=== PATIENT | male | born 1950 | race Caucasian/White ===

== ENCOUNTER 2018-12-27 06:03 | Inpatient (IN) ==
--- NOTE | 2018-11-25 15:48 | PAT Medication Instructions ---
Medication Instructions Date of Service November 25, 2018 Home Medications cholecalciferol (vitamin D3) [Vitamin D3] 1,000 unit PO QAM losartan 100 mg PO QAM multivitamin 1 tab PO QAM DO NOT take the morning of surgery cholecalciferol (vitamin D3) [Vitamin D3] 1,000 unit PO QAM losartan 100 mg PO QAM multivitamin 1 tab PO QAM Other Notes If you have any questions please call us at [phone] or [phone] or [phone] or [phone]
--- NOTE | 2018-11-26 09:58 | Anesthesiology Consultation ---
Date of Service November 26, 2018 Assessment & Plan (1) Encounter for pre-operative examination: Chart Review Chart Review: Acceptable Risk for Surgery and Patient seen in Pre Admission Testing Teaching & Discussion Pre-Anesthesia Teaching/Discussion Notes: Instructed NPO after midnight before surgery,except medications with 15 cc of water. Medication instructions provided according to the PAT guidelines. History Surgery Operation Date: 12/27/18 10:00 Proposed Procedures p Left Anterior Total Hip Arthroplasty - Jose Akins DO Height/Weight Height: 6 ft Weight: 126.7 kg Allergies Allergy/AdvReac Type Severity Reaction Status Date / Time clavulanic acid Allergy Unknown itching Verified 11/26/18 10:17 Medications Home Medications Medication Instructions Recorded Confirmed Last Taken cholecalciferol (vitamin D3) 1,000 unit PO QAM 01/25/18 11/19/18 04/16/18 [Vitamin D3] losartan 100 mg PO QAM 01/25/18 11/19/18 11/19/18 multivitamin 1 tab PO QAM 01/25/18 11/19/18 04/16/18 Past Medical History Medical History Hypertension Obesity (BMI 35.0-39.9 without comorbidity) Osteoarthritis TMJ (temporomandibular joint syndrome) hx locking x 2 (has not locked in "years") Exercise / Class Metabolic Activity II 4-5 Yardwork/Stairs/Walk up hill Past Family History Family History Mother Family history of diabetes mellitus Past Surgical History Surgical History History of carpal tunnel release B/L History of colonoscopy History of left cataract extraction History of right cataract extraction History of tooth extraction History of total knee replacement B/L Past Anesthesia History No Hx of Anesthesia Complications and No Family Hx of Anesthesia Complications History of PONV No Hx of PONV and No Hx of Motion Sickness Social History Smoking Status: Never smoker Do You Dip or Chew Tobacco: No Hx Alcohol Use: Yes alcohol intake frequency: holidays/special occasions only Hx Substance Use: No substance use type: does not use Review of Systems Patient denies chest pain, shortness of breath, dyspnea on exertion, reflux, cough, wheezing, palpitations. Physical Exam Vital Signs VITALS BP 155/95 (repeat: 128/81) P 62 TEMP 98.2 SP02 95%RA RESP 18 PHYSICAL Full neck and c-spine range of motion. Full TMJ range of motion. TMD 3 finger breaths Mallampati Score 2 Dentition: intact, caps/crowns several "all over" Lungs: clear throughout to auscultation Cardiac: regular rate and rhythm, no murmurs noted Spine: normal Carotid arteries: negative bruit Extremities: no edema Trimmed luis Testing Laboratory Results 11/26/18 10:26 PT 10.5 Seconds (9.0-12.0) 11/26/18 10:26 INR 1.0 (0.9-1.1) 11/26/18 10: APTT 23.7 Seconds (21.0-31.0) 11/26/18 10:26 Blood Type A Positive 11/26/18 10:26 Antibody Screen NEGATIVE 11/26/18 10:26 11/22/18 SODIUM 141 POTASSIUM 4.4 CHLORIDE 106 CO2 24 BUN 31 CREATININE 0.9 GLUCOSE 101 Electrocardiogram Date: 01/29/18 NSR at 77bpm. NS TWA. Chest X-Ray Date: 01/29/18 Findings: + NAD
[2018-11-26 10:48] LABS: Basophils # (auto) 0.01 K/uL (0-0.2); Basophils % (auto) 0.2 %; Eosinophils # (auto) 0.14 K/uL (0-0.5); Eosinophils % (auto) 2.6 %; Hematocrit (blood only) 44.2 % (42-52); Hemoglobin 14.8 g/dL (14.0-18.0); Immature Granulocytes # (auto) 0.02 K/uL (0.00-0.02); Immature Granulocytes % (auto) 0.4 %; Lymphocytes # (auto) 2.21 K/uL (1.2-3.4); Lymphocytes % (auto) 41.3 %; Mean Corpuscular Hgb Conc 33.5 g/dL (32-36); Mean Corpuscular Volume 88.8 fL (80-100); Mean Platelet Volume 9.6 fL (7.4-10.4); Monocytes # (auto) 0.44 K/uL (0.11-0.59); Monocytes % (auto) 8.2 %; Neutrophils # (auto) 2.53 K/uL (1.4-6.5); Neutrophils % (auto) 47.3 %; Platelet Count 203 K/uL (130-400); RDW Coefficient of Variation 12.9 % (11.5-14.5); RDW Standard Deviation 41.6 fL (36.4-46.3); Red Blood Count 4.98 M/uL (4.7-6.1); White Blood Count 5.35 K/uL (4.8-10.8)
[2018-11-26 11:03] LABS: Partial Thromboplastin Ratio 0.9; Partial Thromboplastin Time 23.7 Seconds (21.0-31.0); Prothrombin Time 10.5 Seconds (9.0-12.0)
--- NOTE | 2018-12-26 14:19 | History & Physical Report ---
Date of Service December 26, 2018 Assessment & Plan (1) Osteoarthritis of left hip: We will proceed with a left anterior total hip arthroplasty. Postoperatively he will be placed on aspirin for DVT prophylaxis. He will be kept overnight in the hospital for postoperative medical management. He plans to use [facility] upon discharge. Present on Admission?: Yes History of Present Illness Chief Complaint: Primary osteoarthritis of the left hip Primary Care Provider: Gaurav Cheek MD Emeka is a pleasant 68-year-old male who is been dealing with chronic increasing left hip and groin pain. MRI and clinical examination have been diagnostic for primary osteoarthritis of the left hip. After failing conservative treatment, he has elected to proceed with a left anterior total hip arthroplasty. Allergies Allergy/AdvReac Type Severity Reaction Status Date / Time clavulanic acid Allergy Unknown itching Verified 11/26/18 10:17 Home Medications Home Medications Medication Instructions Recorded Confirmed Type cholecalciferol (vitamin D3) 1,000 unit PO QAM 01/25/18 11/19/18 History [Vitamin D3] losartan 100 mg PO QAM 01/25/18 11/19/18 History multivitamin 1 tab PO QAM 01/25/18 11/19/18 History Past Med/Surg History Medical History Hypertension Obesity (BMI 35.0-39.9 without comorbidity) Osteoarthritis TMJ (temporomandibular joint syndrome) hx locking x 2 (has not locked in "years") Surgical History History of carpal tunnel release B/L History of colonoscopy History of left cataract extraction History of right cataract extraction History of tooth extraction History of total knee replacement B/L Family History Mother Family history of diabetes mellitus Social History Preferred Language: Cambodian Communication Ability: Effective Visual Impairment: No Limitations Automation Controls Expert Required: No Beliefs That Will Affect Care: None marital status: Current Living Situation: Spouse Current Living Situation Comment: NA Other Information That Helps Us Care for You: No Feels Safe at Home: Yes Smoking Status: Never smoker Do You Dip or Chew Tobacco: No ; Second Hand Exposure: No ; Hx Alcohol Use: Yes Hx Substance Use: No Review of Systems All systems reviewed & are unremarkable except as noted in HPI & below Physical Exam Constitutional: WD/WN, vitals as above Eyes: PERRL, conjunctivae normal, anicteric sclerae ENMT: external ear and nose normal, oropharynx normal Neck: trachea midline, no thyromegaly Respiratory: normal respiratory effort Cardiovascular: RRR, no murmur, no edema Gastrointestinal (Abdomen): normal bowel sounds, soft, nontender, no hepatosplenomegaly Musculoskeletal: Physical examination of the left hip reveals decreased range of motion with flexion, internal and external rotation. There is significant groin pain with forced internal rotation of the hip his leg lengths are essentially equal. Psychiatric: A+Ox3, euthymic affect Results & Data Diagnostic Findings Radiographs of the left hip and pelvis demonstrate advanced osteoarthritis with joint space narrowing osteophyte formation and [id number] articulation.
[~2018-12-27 06:03] MED LIST: ACETAMINOPHEN 500 MG TAB PO SCH; CEFAZOLIN 3000MG 72.5 ML IV SCH; FAMOTIDINE 20 MG TAB PO SCH; GABAPENTIN 300 MG CAP PO SCH; LR 500ML BOLUS, THEN 15ML/HR IV SCH; LR 60ML/HR IV SCH; ROPIVACAINE 0.5% HCL/PF 150 MG, BUPIVACAINE 0.5% MPF 30 ML, EPINEPHrine 30MG/30ML (OR U... INSTIL SCH; TRANEXAMIC ACID 1,000 MG **IV Pre-op IV SCH
[2018-12-27] MEDS ORDERED: TRANEXAMIC ACID 1,000 MG **IV Intra-op IV SCH (06:30)
[2018-12-27] MEDS ORDERED: BUPIVACAINE 0.5 % 5 MG/1 ML PF 10ML VIAL ONE (06:40)
--- NOTE | 2018-12-27 06:56 | History & Physical Bridge Note ---
Date of Service December 27, 2018 History & Physical Bridge Note I have examined the patient, reviewed the History & Physical and in the interval since the performance of the History & Physical I have noted the following changes of clinical significance: no changes noted
[2018-12-27] MEDS ORDERED: PROPOFOL IV EMULSION 10 MG/ML 20 ML VIAL IV ONE ×2 (07:06→09:51)
[2018-12-27] MEDS ORDERED: MIDAZOLAM HCL 1 MG/ML 2ML VIAL ONE ×2 (07:06→07:07)
[2018-12-27] MEDS ORDERED: LIDOCAINE HCL 2% 2 ML VIAL/AMP(20MG/ML) INFIL ONE (07:06)
[2018-12-27] MEDS ORDERED: fentaNYL citrate 100 MCG/2 ML VIAL ONE (07:07)
[2018-12-27] MEDS ORDERED: ORTHO JOINT ANESTHETIC ONE (07:14)
[2018-12-27] MEDS ORDERED: fentaNYL citrate 100 MCG/2 ML VIAL IV PRN (07:21)
[2018-12-27] MEDS ORDERED: ATROPINE SULFATE 0.1 MG/ML 10ML SYR IV PRN (07:21)
[2018-12-27] MEDS ORDERED: ePHEDrine sulfate 50 MG/ML AMP IV PRN (07:21)
[2018-12-27] MEDS ORDERED: ONDANSETRON INJ 2 MG/ML 2 ML VIAL IV PRN ×2 (07:21→12:04)
--- NOTE | 2018-12-27 10:10 | Operative Report ---
Post Operative Report Pre & Post Diagnosis Operation Date: 12/27/18 08:30 Pre-Op Diagnosis: Left Hip Degenerative Joint Disease Post-Op Diagnosis: Left Hip Degenerative Joint Disease Procedure Operation Date: 12/27/18 08:30 Actual Procedures p Left Anterior Total Hip Arthroplasty(Left) - Jose Akins DO Surgeon Jose Akins DO Nuclear Chemistry Technician Jose Presley PAC Estimated Blood Loss 250 Findings Consistent with Post-Op Diagnosis Specimens Left femoral head Complications none Disposition Disposition: Recovery Room Indications Emeka is a pleasant 68-year-old male who presented my office with complaints of chronic increasing left hip and groin pain. X-rays and clinical examination were diagnostic for primary osteoarthritis of the left hip. After failing conservative treatment, he elected to proceed with a left total hip arthroplasty. Description of Procedure Implants used Biomet Taperloc total hip arthroplasty system with a size 16 standard offset Taperloc stem, a 58 mm G7 cup with a 25mm screw, an E1 polyethylene liner, a 40 mm ceramic head with a +3 neck. Patient arrived at the hospital for the above procedure. They were seen in the preoperative holding area and the operative extremity was identified and signed. They were given a spinal anesthetic. They were given a preoperative antibiotic and TXA. They were taken back To the operating room and laid on the table in the supine position. The leg was brought out through a Puristst leg positioner. The hip was then prepped and draped in sterile fashion. A timeout was done and the patient in upper extremities properly identified. An anterior approach was used. Dissection was taken down through the fascia and the tensor muscle belly was retracted laterally and the rectus was retracted medially. The circumflex vessels were identified and ligated. The capsule was then incised and tagged for later repair. The femoral neck was then cut and the femoral head was removed. The acetabulum was exposed. Time was spent doing a complete circumferential labral release. Sequential reaming of the acetabulum up to a size 57 reamer was done. Final reamings were done under fluoroscopy to ensure appropriate version. A Biomet 58 mm G7 cup was then impacted into place. A single 25 mm screw was placed. The E1 polyethylene liner was then snapped into place. Surrounding soft tissues were then injected with 100 cc of an orthopedic pain control cocktail. The proximal femur was then exposed. Sequential broaching up to a size 16 broach was done. Off that broach a size 40 head with a +3 neck was trialed. The hip was reduced and fluoroscopic images showed anatomic alignment of the implants in acceptable length. The broach was removed. The final size 16 standard offset Taperloc stem was then impacted into place. A ceramic 40 mm head with a +3 neck was then impacted into place in the hip was reduced. Final fluoroscopic images showed anatomic reduction of the hip. The capsule was then closed with #1 Vicryl suture. A dilute betadyne lavage was then done for 3 minutes. The joint was then irrigated with normal saline solution. The fascia was closed with #1 PDS suture. Skin was closed with 2-0 Vicryl, yuko, and a [place] VAC dressing. The patient was then transferred to a hospital bed and taken to the post anesthesia care unit in stable condition. They tolerated the procedure well. I attest to the content of the Intraoperative Record and any orders documented therein. Any exceptions are noted below.
--- NOTE | 2018-12-27 10:45 | Fluoroscopy Report ---
FL hip LT 1V CLINICAL HISTORY: LEFT ANTERIOR HIP COMPARISON STUDY: None FLUOROSCOPY TIME: 35 seconds NUMBER OF FLUOROSCOPIC IMAGES: 3 FINDINGS: Image intensifier support for a total left hip arthroplasty IMPRESSION: Image intensifier support for a total left hip arthroplasty The above report was generated using voice recognition software. It may contain grammatical, syntax or spelling errors. Electronically signed by: Kd Mccarthy M.D. 12/27/2018 10:43 AM
--- NOTE | 2018-12-27 11:08 | XRay Report ---
XR hip 1V LT w pelvis CLINICAL HISTORY: Degenerative arthritis. Postoperative study. COMPARISON: 09/23/2018 DISCUSSION: There are postsurgical changes of a total left hip arthroplasty. The acetabular femoral c omponents appear well seated. There is no dislocation. There are overlying skin yuko present. Ther e is air within the soft tissues consistent with recent surgery. IMPRESSION: Postsurgical changes of a total left hip arthroplasty. Electronically signed by: Alexandr Belle M.D. 12/27/2018 11:06 AM
[2018-12-27] MEDS ORDERED: MAGNESIUM HYDROXIDE SUSP 30 ML UDC PO PRN (12:04)
[2018-12-27] MEDS ORDERED: HYDROmorphone INJ 0.5 MG/0.5 ML SYR IV PRN (12:04)
[2018-12-27] MEDS ORDERED: NALOXONE HCL 0.4 MG/1 ML VIAL/CARP IV PRN (12:04)
[2018-12-27] MEDS ORDERED: METOCLOPRAMIDE HCL INJ 5 MG/ML 2 ML VIAL IV PRN (12:04)
[2018-12-27] MEDS ORDERED: BISACODYL 10 MG SUPP PR PRN (12:04)
[2018-12-27] MEDS: SODIUM CHLORIDE 0.9% 1000ML 1,000 ML IV SCH ×2 (13:03→21:49)
[2018-12-27] MEDS: KETOROLAC TROMETHAMINE 15 MG/ML VIAL IV SCH ×3 (13:03→23:38)
[2018-12-27] MEDS: ACETAMINOPHEN 500 MG TAB PO SCH ×2 (13:04→20:34)
--- NOTE | 2018-12-27 14:19 | Anesthesiology Progress Note ---
Date of Service December 27, 2018 Anesthesia Post Procedure Vital Signs Vital Signs: Temp Pulse Pulse Resp BP Pulse Ox 12/27/18 13:40 74 18 136/79 97 12/27/18 12:44 73 18 129/78 95 12/27/18 12:11 67 18 123/80 95 12/27/18 11:40 36.3 C L 68 15 119/76 96 12/27/18 11:30 37.0 C 64 16 111/71 97 12/27/18 11:20 37.0 C 70 16 101/78 94 12/27/18 11:10 71 24 119/81 98 12/27/18 11:00 73 16 122/88 93 12/27/18 10:50 73 17 126/84 93 12/27/18 10:43 36.0 C L 86 16 112/78 94 12/27/18 06:35 36.9 C 80 18 164/98 H 95 Transfer of Care Handoff Completed per policy Notes Mental Status: alert / awake / arousable and participated in evaluation Patient Amnestic to Procedure: Yes Nausea / Vomiting: adequately controlled Pain: adequately controlled Airway Patency, RR, SpO2: stable & adequate BP & HR: stable & adequate Hydration State: stable & adequate Neuraxial Anesthesia: was administered and sensory block is resolving Anesthetic Complications: no major complications apparent and Pt Satisfied with anesthetic care
[2018-12-27] MEDS: CEFAZOLIN 2000MG 2,000 MG/15 ML SYR IV SCH ×2 (16:10→23:38)
[2018-12-27] MEDS: DOCUSATE SODIUM 100 MG CAP PO SCH (20:34)
[2018-12-27] MEDS: ASPIRIN 81 MG ECTAB PO SCH (20:34)
[2018-12-27] MEDS ORDERED: SENNA 8.6 MG TAB PO SCH (21:00)
[2018-12-27] MEDS: OXYCODONE HCL IR 5 MG TAB (IMMEDIATE RELEASE) PO PRN (21:45)
[2018-12-28] MEDS: KETOROLAC TROMETHAMINE 15 MG/ML VIAL IV SCH ×2 (05:06→12:09)
[2018-12-28] MEDS: ACETAMINOPHEN 500 MG TAB PO SCH (05:06)
[2018-12-28 06:39] LABS: Basophils # (auto) 0.01 K/uL (0-0.2); Basophils % (auto) 0.1 %; Eosinophils # (auto) 0.09 K/uL (0-0.5); Eosinophils % (auto) 0.8 %; Hematocrit (blood only) 39.3 % (42-52); Hemoglobin 13.1 g/dL (14.0-18.0); Immature Granulocytes # (auto) 0.03 K/uL (0.00-0.02); Immature Granulocytes % (auto) 0.3 %; Lymphocytes # (auto) 2.06 K/uL (1.2-3.4); Lymphocytes % (auto) 17.7 %; Mean Corpuscular Hgb Conc 33.3 g/dL (32-36); Mean Corpuscular Volume 88.9 fL (80-100); Monocytes # (auto) 1.16 K/uL (0.11-0.59); Neutrophils # (auto) 8.27 K/uL (1.4-6.5); Neutrophils % (auto) 71.1 %; Platelet Count 191 K/uL (130-400); RDW Coefficient of Variation 12.8 % (11.5-14.5); RDW Standard Deviation 41.6 fL (36.4-46.3); Red Blood Count 4.42 M/uL (4.7-6.1); White Blood Count 11.62 K/uL (4.8-10.8)
[2018-12-28 07:14] LABS: BUN Creatinine Ratio 26.6 (10-20); Calcium 8.3 mg/dl (8.5-10.1); Creatinine Clr Calc Pharmacy 112.1 ml/min; Est GFR (African American) 103.7; Est GFR (Non-African American) 89.5
[2018-12-28] MEDS: ASPIRIN 81 MG ECTAB PO SCH (08:54)
[2018-12-28] MEDS: DOCUSATE SODIUM 100 MG CAP PO SCH (08:55)
[2018-12-28] MEDS ORDERED: MULTIVITAMIN TAB PO SCH (09:00)
[2018-12-28] MEDS ORDERED: LOSARTAN POTASSIUM 50 MG TAB PO SCH (09:00)
--- NOTE | 2018-12-28 09:22 | Orthopedic Progress Note ---
Date of Service December 28, 2018 Assessment & Plan (1) Osteoarthritis of left hip: Overall is doing very well. Is not having much pain in the left hip. He will be seen by physical therapy this morning for ambulation and range of motion exercises. He can be discharged home later today. He is on aspirin for DVT prophylaxis. He will use [facility] at home. He will follow-up with orthopedics in 2 weeks. Present on Admission?: Yes Subjective Emeka was seen and examined at bedside this morning. Overall he is doing very well. Is not having much pain in the hip. He is already been ambulating around the nurses station. He has no complaints. Physical Exam Musculoskeletal: On physical examination of the left hip, the [place] VAC dressings to suction. His leg lengths are equal. He is active dorsiflexion and plantarflexion of his left ankle. Results & Data Vital Signs (Past 12 Hours) Vital Signs Temp Pulse Resp BP Pulse Ox 12/28/18 07:00 36.7 C 65 18 143/81 H 100 12/28/18 03:36 36.9 C 63 18 115/66 96 12/27/18 23:19 36.5 C 68 18 111/61 94 Laboratory Results H & H 11/26/18 12/28/18 Range/Units 10:26 06:23 Hgb 14.8 13.1 L (14.0-18.0) g/dL Hct 44.2 39.3 L (42-52) % Coagulation 11/26/18 Range/Units 10:26 INR 1.0 (0.9-1.1) Diagnostic Findings Postoperative x-rays of the left hip show the prosthesis to be in anatomic alignment without any evidence of fracture, dislocation, or loosening. PG Care Time/CCT Total # of Minutes Spent Total Time Spent with Patient: Total time spent is greater than 50% in coord ination of care (as documented) at patient's floor/unit and/or counseling patient:
--- NOTE | 2018-12-28 09:24 | Discharge Summary ---
Date of Service December 28, 2018 Admission HPI Per Admitting Provider Emeka is a pleasant 68-year-old male who is been dealing with chronic increasing left hip and groin pain. MRI and clinical examination have been diagnostic for primary osteoarthritis of the left hip. After failing conservative treatment, he has elected to proceed with a left anterior total hip arthroplasty. Principal Diagnosis Left total hip arthroplasty Discharge Data Allergies Allergy/AdvReac Type Severity Reaction Status Date / Time clavulanic acid Allergy Unknown itching Verified 12/27/18 06:31 Consultations 12/28/18 08:00 Consult Case Management - Discharge Planning Routine Procedures Performed Operation Date: 12/27/18 08:30 Actual Procedures p Left Anterior Total Hip Arthroplasty(Left) - Jose Akins DO Ordered Studies 12/27/18 08:30 FL fluoroscopy <1hr Routine FL hip LT 1V Routine Hospital Course (1) Osteoarthritis of left hip: On December 27, 2018 Emeka arrived at [facility] and underwent a left anterior total hip arthroplasty without complication. He had a spinal anesthetic. Postoperatively he was started on aspirin for DVT prophylaxis and discharged to general orthopedic floors. His hospital course is uneventful. On postop day #1 his H&H was stable and his pain was well controlled. He was able to participate well with physical therapy doing ambulation and range of motion exercises. He was then discharged home with [facility]. He will follow-up with orthopedics in 2 weeks. Total Time Total Time Spent Total Time Spent (In Minutes): 20 Discharge Plan Discharge Items Reason For Visit: Left Hip Degenerative Joint Disease Discharge Diagnosis: Left total hip arthroplasty Discharge Goals: Decrease discomfort and Improve function Activity: Per 'Additional Instructions' section Non-emergency contact: Surgeon Call non-emergency contact if: your wound has increased redness and your wound has increased drainage Follow-up/Referrals: Gaurav Cheek MD [Primary Care Provider] - Diet: Regular Addtl Provider Instructions: Activity and Therapy Recommendations: * If you are using [facility] then therapy will be provided at your home until they feel you have accomplished all of your goals. * If you are using [facility] then Physical Therapy will be provided until they feel you are ready to start Outpatient Physical Therapy. * If you are not using home therapy then Outpatient Physical Therapy should start about 3-5 days from your day of surgery. Therapy will last about 6-10 weeks * You were shown a series of exercises in the hospital. Do these exercises three times each day including the exercises you were shown in physical therapy. * Get up and walk several times each day.~ For the first four weeks, try not to stand or walk for more than one hour at a time. If you do stand or walk for more than one hour, you will not hurt anything, but your leg will likely swell.~~ * As you feel comfortable, you may change from the walker or crutches to a cane and~then to independent walking. Medications: * Narcotic You will likely be sent home from the hospital with a prescription for the narcotic pain medication that worked best throughout your stay. * Aspirin Most patients will be required to take Aspirin 81mg twice a day for 6 weeks after surgery. This is obtained [id number] and a prescription is not necessary. * Other medications may be prescribed for specific circumstances. If you have any questions, please call the office at . * Resume previous home medications unless otherwise instructed TEDs/Elastic Stockings: The white elastic stockings help limit swelling and prevent blood clots from forming in your legs. The more you wear them, the more they work. Wear them for six weeks. Dressing Care: You will likely have a purple VAC dressing after surgery. This dressing will keep the incision dry and promote early healing. After about 7 days the batteries will wear out and the VAC will lose suction. Simply remove the dressing at that time and throw everything away, including the small suction machine. Then, you may leave the yuko open to air or cover them with a dry dressing so they do not rub on your pants. The yuko will be removed at your 2 week follow-up appointment. Showering: You may shower immediately with the purple VAC dressing. Let the shower spray hit your opposite side and slowly pat the plastic dry. Do not soak the dressing. After the dressing is removed you may shower normally with the yuko exposed. Let soapy water run over the yuko and pat them dry. Things To Watch For: * Drainage from the incision site that occurs more than one week after your surgery. * Increased redness at the incision site. * Fever above 102 degrees Fahrenheit. * Unusual chest pain or shortness of breath. * Call [facility] at with any of the above problems Follow-Up Visit: Follow-up with Dr. Akins 2-3 weeks after your day of surgery. An appointment was probably scheduled when you signed-up for surgery in the office. If you have any questions call Office Instructions: More detailed instructions as well as Frequently Asked Questions were provided in a folder by our office when you signed-up for surgery. Please review these instructions when you get home. If you have any further questions or concerns, please feel free to call the office at [phone] Prescriptions: New oxycodone 5 mg Tablet 5 - 10 mg PO Q4H PRN (Reason: pain) Qty: 40 RF: 0 aspirin [Ecotrin Low Strength] 81 mg Tablet,Delayed Release (Dr/Ec) 81 mg PO BID Qty: 84 RF: 0 Continued multivitamin Tablet 1 tab PO QAM RF: 0 losartan 100 mg Tablet 100 mg PO QAM RF: 0 cholecalciferol (vitamin D3) [Vitamin D3] 1,000 unit Capsule 1,000 unit PO QAM RF: 0 Stand-Alone Forms: [facility] Admission Data Admit Date/Time: 12/27/18 10:47 Attending Provider: Jose Akins Admit Provider: Jose Akins Primary Care Provider: Gaurav Cheek Service: Surgical Services
[2018-12-28] MEDS: OXYCODONE HCL IR 5 MG TAB (IMMEDIATE RELEASE) PO PRN (12:10)
== END 2018-12-28 13:27 | disposition home health service (06) | DRG 470 ==
LOC: ASU 06:03 → 3E 10:47
DX: I10 Essential (primary) hypertension; Z68.36 Body mass index [BMI] 36.0-36.9, adult; Z79.899 Other long term (current) drug therapy; Z88.1 Allergy status to other antibiotic agents; Z96.653 Presence of artificial knee joint, bilateral; M16.12 Unilateral primary osteoarthritis, left hip; E66.9 Obesity, unspecified

== ENCOUNTER 2023-08-24 13:16 | Observation (INO) ==
--- NOTE | 2023-08-24 15:54 | Emergency Department Note ---
History of Present Illness General Chief complaint: Back Injury/Pain Stated complaint: BACK PAIN Time Seen by Provider: 08/24/23 15:45 History of Present Illness Maximum Pain Intensity: 10 This is a 73-year-old male that presents to the emergency department via private vehicle accompanied by son and with complaints of "back pain". The patient states that he is experiencing back pain and has been experiencing back pain for the past month. However, as of recent it is worsened and now the spasms in the right back are to a point where he is not really able to move without significant pain. He states that the pain is mostly located in the right low back area. It does not radiate down the legs. However, he does note that when the pain first occurred about a month ago there was pain and numbness in the bilateral feet but that has resolved. He denies any lower extremity weakness, bowel or bladder incontinence, numbness or tingling in the genital region. He denies any history of spine surgeries. No infectious symptoms. No fevers or chills. Home Medications Medication Instructions Recorded Confirmed Type cholecalciferol (vitamin D3) 25 1,000 unit PO QAM 01/25/18 08/24/23 History mcg (1,000 unit) capsule (Vitamin D3) losartan 100 mg tablet 100 mg PO QAM 01/25/18 08/24/23 History multivitamin 1 tab PO QAM 01/25/18 08/24/23 History diclofenac sodium 75 mg 75 mg PO BID PRN pain #30 tabs 09/29/22 08/24/23 Rx tablet,delayed release tizanidine 4 mg tablet 4 mg PO BID PRN muscle spasticity 11/02/22 08/24/23 Rx #30 tabs aspirin 81 mg tablet,delayed 81 mg PO QAM 08/24/23 08/24/23 History release (Ecotrin Low Strength) ezetimibe 10 mg tablet 10 mg PO QAM 08/24/23 08/24/23 History meloxicam 7.5 mg tablet 7.5 mg PO DAILY 08/24/23 08/24/23 History Allergies Allergy/AdvReac Type Severity Reaction Status Date / Time clavulanic acid Allergy Intermediate itching Verified 08/24/23 18:46 Past Med/Surg History Medical History (Updated 08/24/23 @ 23:38 by Toni Jeronimo PA-C) TMJ (temporomandibular joint syndrome) hx locking x 2 (has not locked in "years") Obesity (BMI 35.0-39.9 without comorbidity) Osteoarthritis Hypertension Surgical History History of left cataract extraction History of right cataract extraction History of carpal tunnel release B/L History of total knee replacement B/L History of colonoscopy History of tooth extraction Family History Mother Family history of diabetes mellitus Social History Smoking Status: Never smoker Second Hand Exposure: No; Do You Dip or Chew Tobacco: No; Hx Alcohol Use: Yes Hx Substance Use: No Preferred Language: German Communication Ability: Effective Visual Impairment: No Limitations [employer] Officer Required: No Beliefs That Will Affect Care: None marital status: Current Living Situation: Spouse Current Living Situation Comment: NA Feels Safe at Home: Yes Assistive Devices: Walker Review of Systems A total of 10 systems reviewed and were otherwise negative Physical Exam Vital Signs Vital Signs - 24 hr 08/24/23 13:21 08/24/23 15:53 08/24/23 20:02 Temperature 36.3 C L Temperature Source Temporal Artery Scan Pulse Rate 100 H Pulse Rate [Finger] 68 Pulse Rhythm Regular Pulse Rhythm [Finger] Regular Pulse Strength Normal Pulse Strength [Finger] Normal Respiratory Rate 20 18 Respiratory Effort / Characteristics Non-Labored Spontaneous Non-Labored Spontaneous Respiratory Depth Normal Normal Respiratory Pattern Regular Regular Blood Pressure 179/124 H Blood Pressure [Left Arm] 143/81 H Blood Pressure Mean 142 Blood Pressure Mean [Left Arm] 101 Blood Pressure Position Sitting Blood Pressure Position [Left Arm] Sitting Pulse Oximetry 95 95 Oxygen Delivery Method Room Air Room Air Room Air Sepsis Recent Fever Within 48 Hours No Sepsis New/Unexplained Change in Mental Status No Sepsis Action Taken by Nursing No Action Required VITAL SIGNS - Vital signs and nursing notes were reviewed. Hypertensive, otherwise stable. GENERAL -73-year-old male appearing his stated age who is in no acute distress but appears to be in pain. Communicates well with provider and answers questions appropriately. SKIN - Without rashes. No meningeal or petechial rash. HEAD - NC/AT. EYES - Sclera anicteric. MOUTH/OROPHARYNX - Without perioral cyanosis. NECK - Neck with FROM. No nuchal rigidity. LUNGS - Chest wall symmetric without accessory muscle use, intercostals retractions, or central cyanosis. Normal vesicular breath sounds CTA B/L. No wheezes, rales, or rhonchi appreciated. CARDIAC - RRR ABDOMEN - Abdominal contour normal without pulsations or visible masses. BS normoactive all four quadrants. No tenderness, palpable masses, hepatosplenomegaly, or ascites noted. MUSCULOSKELETAL there is reproducible tenderness with palpable muscle spasm to the right paraspinous musculature of the L-spine. No spinal tenderness. EXTREMITIES - No clubbing or peripheral cyanosis. +5/5 strength noted in UE/LE bilaterally. NEUROLOGIC - Cranial nerves grossly intact PSYCH -alert, oriented and pleasant on exam. Course Administered Medications Miscellaneous (Remove Lidoderm Patch) 1 each N/A DAILY@2100 ZEINA Stop: 09/23/23 20:59 Last Admin: 08/24/23 21:00 Dose: 1 each Documented By: NI Oxycodone HCl (Oxycodone Hcl Ir 5 Mg Tab (Immediate Release)) 5 - 10 mg PO QID PRN PRN Reason: Pain Stop: 09/07/23 19:37 Last Admin: 08/24/23 22:04 Dose: 10 mg Documented By: NI Discontinued Medications Clonidine HCl (Clonidine Hcl 0.1 Mg Tab) 0.1 mg PO NOW ONE Stop: 08/24/23 19:37 Last Admin: 08/24/23 20:13 Dose: Not Given Documented By: NI Diazepam (Diazepam 5 Mg/Ml 10ml Vial) 2 mg IV NOW STA Stop: 08/24/23 16:50 Last Admin: 08/24/23 16:55 Dose: 2 mg Documented By: AUGUSTIN Diazepam (Diazepam 5 Mg/Ml 10ml Vial) 2 mg IV NOW STA Stop: 08/24/23 20:43 Last Admin: 08/24/23 20:48 Dose: 2 mg Documented By: NI Hydromorphone HCl (Hydromorphone Inj 0.5 Mg/0.5 Ml Syr) 0.5 mg IV NOW STA Stop: 08/24/23 15:54 Last Admin: 08/24/23 16:17 Dose: 0.5 mg Documented By: AUGUSTIN Hydromorphone HCl (Hydromorphone Inj 0.5 Mg/0.5 Ml Syr) 0.5 mg IV NOW STA Stop: 08/24/23 19:41 Last Admin: 08/24/23 20:16 Dose: 0.5 mg Documented By: NI Ioversol (Optiray 320 100ml) 91 ml IV ONCE ONE Stop: 08/24/23 17:35 Last Admin: 08/24/23 17:34 Dose: 91 ml Documented By: SD Lidocaine (Lidocaine 5% 1 Patch) 1 patch TD NOW STA Stop: 08/24/23 16:50 Last Admin: 08/24/23 16:56 Dose: 1 patch Documented By: AUGUSTIN Morphine Sulfate (Morphine Sulfate 4 Mg/Ml 1 Ml Carp\\Vial) 4 mg IV NOW STA Stop: 08/24/23 17:53 Last Admin: 08/24/23 18:01 Dose: 4 mg Documented By: AUGUSTIN Ondansetron HCl (Ondansetron Inj 2 Mg/Ml 2 Ml Vial) 4 mg IV NOW STA Stop: 08/24/23 15:54 Last Admin: 08/24/23 16:17 Dose: 4 mg Documented By: AUGUSTIN Medical Decision Making Laboratory Data 08/24/23 16:20 08/24/23 16:20 Lab Results 08/24/23 Range/Units 16:20 WBC 8.32 (4.8-10.8) K/ul RBC 5.90 (4.70-6.10) M/uL Hgb 17.6 (14.0-18.0) g/dl Hct 52.3 H (42.0-52.0) % MCV 88.6 (80.0-100.0) fL MCH 29.8 (25.0-34.0) pg MCHC 33.7 (32.0-36.0) g/dL RDW Std Deviation 41.8 (36.4-46.3) fL RDW Coeff of Akira 12.8 (11.5-14.5) % Plt Count 219 (130-400) K/uL MPV 9.2 L (9.4-12.4) fL Immature Gran % (Auto) 0.6 % Neut % (Auto) 77.5 % Lymph % (Auto) 19.0 % Colbert % (Auto) 2.5 % Eos % (Auto) 0.0 % Baso % (Auto) 0.4 % Neut # (Auto) 6.45 (1.40-6.50) K/uL Lymph # (Auto) 1.58 (1.20-3.40) K/uL Colbert # (Auto) 0.21 (0.11-0.59) K/uL Eos # (Auto) 0.00 (0.00-0.50) K/uL Baso # (Auto) 0.03 (0.00-0.20) K/uL Immature Gran # (Auto) 0.05 (0.01-0.20) K/uL Sodium 137 (136-145) mmol/L Potassium 4.3 (3.5-5.1) mmol/L Chloride 105 (98-107) mmol/L Carbon Dioxide 25 (21-32) mmol/L Anion Gap 7 (3-11) BUN 26 H (6-23) mg/dl Creatinine 0.86 (0.6-1.4) mg/dl Est Cr Clr Drug Dosing 109.8 ml/min Est GFR ( Amer) 101.1 ml/min Est GFR (Non-Af Amer) 87.2 ml/min BUN/Creatinine Ratio 30.2 H (10-20) Glucose 137 H (70-99(Fasting)) mg/dl Calcium 10.0 (8.6-10.3) mg/dl Total Bilirubin 0.6 (0.2-1.0) mg/dl AST 17 (13-39) U/L ALT 16 (7-52) U/L Alkaline Phosphatase 33 L (34-104) U/L Total Protein 8.0 (6.0-8.3) gm/dl Albumin 4.8 (3.4-5.0) gm/dl Globulin 3.2 (2.5-4.0) gm/dl Albumin/Globulin Ratio 1.5 (0.9-2) Imaging Data Radiologist's Impression: Abdomen/Pelvis CT 08/24/23 15:[address] WITH IV CONTRAST; CT LUMBAR SPINE WITH IV CONTRAST CT DOSE: 1479.25 mGy.cm HISTORY: Acute right lower abdominal and back pain without reported trauma R lower back pain TECHNIQUE: Multiaxial CT images of the abdomen and pelvis were performed following the IV administration of 91 cc of Optiray, A dose lowering technique was utilized adhering to the principles of ALARA. COMPARISON STUDY: MRI lumbar spine 12/14/2020 FINDINGS: CT ABDOMEN/PELVIS: Coronary arterial calcifications. Clear lung bases. No free air. Unremarkable spleen, mildly atrophic pancreas and adrenal glands. Unremarkable gallbladder. Hepatic steatosis. Patency of the hepatic and portal veins. Mild nonspecific bilateral perinephric stranding. Left renal cysts measure up to 3.8 cm. There is no hydronephrosis. Unremarkable urinary bladder. Mildly enlarged prostate. Small fat filled inguinal hernias. Atherosclerosis of the aorta. No lymphadenopathy. No bowel obstruction or bowel wall thickening. Mild colonic fecal retention. Normal appendix. Unremarkable soft tissues. Left hip arthroplasty. No acute fracture. CT LUMBAR SPINE: Moderate multilevel osteophytosis and facet arthrosis. No acute fracture, subluxation, endplate erosion or marrow replacing process. Mild levoscoliosis. Suboptimal evaluation of the central canal and neural foramina by CT technique. Moderate degeneration of the SI joints. Posterior annular disc bulge at L4-L5, eccentric to the left lateral recess and neural foramen are again noted causing moderate left foraminal narrowing. IMPRESSION: 1. No acute intra-abdominal or intrapelvic abnormality. 2. No acute fracture identified. 3. Incidental findings as above. ACT 112: Negative or not required by law. The above report was generated using voice recognition software. It may contain grammatical, syntax or spelling errors. Electronically signed by: Babak Alston M.D. 08/24/2023 6:[address] 08/24/23 15:[address] WITH IV CONTRAST; CT LUMBAR SPINE WITH IV CONTRAST CT DOSE: 1479.25 mGy.cm HISTORY: Acute right lower abdominal and back pain without reported trauma R lower back pain TECHNIQUE: Multiaxial CT images of the abdomen and pelvis were performed following the IV administration of 91 cc of Optiray, A dose lowering technique was utilized adhering to the principles of ALARA. COMPARISON STUDY: MRI lumbar spine 12/14/2020 FINDINGS: CT ABDOMEN/PELVIS: Coronary arterial calcifications. Clear lung bases. No free air. Unremarkable spleen, mildly atrophic pancreas and adrenal glands. Unremarkable gallbladder. Hepatic steatosis. Patency of the hepatic and portal veins. Mild nonspecific bilateral perinephric stranding. Left renal cysts measure up to 3.8 cm. There is no hydronephrosis. Unremarkable urinary bladder. Mildly enlarged prostate. Small fat filled inguinal hernias. Atherosclerosis of the aorta. No lymphadenopathy. No bowel obstruction or bowel wall thickening. Mild colonic fecal retention. Normal appendix. Unremarkable soft tissues. Left hip arthroplasty. No acute fracture. CT LUMBAR SPINE: Moderate multilevel osteophytosis and facet arthrosis. No acute fracture, subluxation, endplate erosion or marrow replacing process. Mild levoscoliosis. Suboptimal evaluation of the central canal and neural foramina by CT technique. Moderate degeneration of the SI joints. Posterior annular disc bulge at L4-L5, eccentric to the left lateral recess and neural foramen are again noted causing moderate left foraminal narrowing. IMPRESSION: 1. No acute intra-abdominal or intrapelvic abnormality. 2. No acute fracture identified. 3. Incidental findings as above. ACT 112: Negative or not required by law. The above report was generated using voice recognition software. It may contain grammatical, syntax or spelling errors. Electronically signed by: Babak Alston M.D. 08/24/2023 6:30 PM MDM Narrative Patient was seen and evaluated as above in room D02a. Review was performed of triage nursing notes and vital signs. After obtaining a thorough history and physical examination the above work up was performed. Patient presents to us today for evaluation of low back pain. He appears to be in pain on exam. He is sitting in a wheelchair and really cannot move from the chair without significant pain. He does not have any pain radiating down his legs. No infectious symptoms. No abdominal pain. Options of care were discussed with the patient. IV access was established. Labs were drawn. Patient was medicated with several IV analgesic options here as well as a lidocaine patch. He continued to experience pain. A CT scan was obtained of the abdomen/pelvis as well as L-spine imaging. Results as above. No acute intra-abdominal or intrapelvic abnormality. No acute fracture. The patient does not have any neurovascular deficit on examination. However, noting the patient's continued discomfort and severe pain with movement in the low back we will proceed with inpatient management. Patient amenable to this plan. Case discussed with hospitalist service. Hospitalist did order an MRI. Patient did require some additional medication to help his pain prior to going for MRI. I did ask that pulse oximetry be monitored while in the MRI and nursing staff was able to monitor this during his time in MRI. I was told the patient did receive some supplemental O2 while in the scanner. Patient returned from MRI and was doing well. Please refer to further documentation regarding his stay. GCS: 15 In the evaluation and treatment of this patient the following differential diagnosis entertained: Fracture, dislocation, subluxation, cauda equina syndrome, AAA, diverticulitis, appendicitis, torsion, osteomyelitis, piriformis syndrome, strain, sprain, among others. Impression & Plan Intractable low back pain Discharge Plan Visit Data Chief Complaint: Back Injury/Pain Stated Complaint: BACK PAIN ED Provider: Emeka Locke ED Midlevel Provider: Toni Jeronimo Discharge Problem: Intractable low back pain Patient Disposition: Admitted As Inpatient Condition: Good Discharge Instructions Interventions: ED Discharge Assessment Last Done: 08/24/23 22:27
[2023-08-24] MEDS: HYDROmorphone INJ 0.5 MG/0.5 ML SYR IV STA ×2 (16:17→20:16)
[2023-08-24] MEDS: ONDANSETRON INJ 2 MG/ML 2 ML VIAL IV STA (16:17)
[2023-08-24 16:39] LABS: Basophils # (auto) 0.03 K/uL (0.00-0.20); Basophils % (auto) 0.4 %; Hematocrit (blood only) 52.3 % (42.0-52.0); Hemoglobin 17.6 g/dl (14.0-18.0); Immature Granulocytes # (auto) 0.05 K/uL (0.01-0.20); Immature Granulocytes % (auto) 0.6 %; Lymphocytes # (auto) 1.58 K/uL (1.20-3.40); Mean Corpuscular Hemoglobin 29.8 pg (25.0-34.0); Mean Corpuscular Hgb Conc 33.7 g/dL (32.0-36.0); Mean Corpuscular Volume 88.6 fL (80.0-100.0); Mean Platelet Volume 9.2 fL (9.4-12.4); Monocytes # (auto) 0.21 K/uL (0.11-0.59); Monocytes % (auto) 2.5 %; Neutrophils # (auto) 6.45 K/uL (1.40-6.50); Neutrophils % (auto) 77.5 %; Platelet Count 219 K/uL (130-400); RDW Coefficient of Variation 12.8 % (11.5-14.5); RDW Standard Deviation 41.8 fL (36.4-46.3); White Blood Count 8.32 K/ul (4.8-10.8)
[2023-08-24] MEDS: diazePAM 5 MG/ML 10ML VIAL IV STA ×2 (16:55→20:48)
[2023-08-24 16:56] LABS: Albumin Globulin Ratio 1.5 (0.9-2); Albumin Level 4.8 gm/dl (3.4-5.0); BUN Creatinine Ratio 30.2 (10-20); Bilirubin,Total 0.6 mg/dl (0.2-1.0); Creatinine Clr Calc Pharmacy 109.8 ml/min; Est GFR (African American) 101.1 ml/min; Est GFR (Non-African American) 87.2 ml/min; Globulin 3.2 gm/dl (2.5-4.0); Potassium 4.3 mmol/L (3.5-5.1)
[2023-08-24] MEDS: LIDOCAINE 5% 1 PATCH TD STA (16:56)
[2023-08-24] MEDS: OPTIRAY 320 100ml IV ONE (17:34)
[2023-08-24] MEDS: MoRPHine SULFATE 4 MG/ML 1 ML CARP\\VIAL IV STA (18:01)
--- NOTE | 2023-08-24 18:32 | CT Scan Report ---
ABDOMEN AND PELVIS CT WITH IV CONTRAST; CT LUMBAR SPINE WITH IV CONTRAST CT DOSE: 1479.25 mGy.cm HISTORY: Acute right lower abdominal and back pain without reported trauma R lower back pain TECHNIQUE: Multiaxial CT images of the abdomen and pelvis were performed following the IV administrat ion of 91 cc of Optiray, A dose lowering technique was utilized adhering to the principles of ALARA. COMPARISON STUDY: MRI lumbar spine 12/14/2020 FINDINGS: CT ABDOMEN/PELVIS: Coronary arterial calcifications. Clear lung bases. No free air. Unremarkable spleen, mildly atrophic pancreas and adrenal glands. Unremarkable gallbladder. Hepatic steatosis. Patency of the hepatic and portal veins. Mild nonspecific bilateral perinephric stranding. Left renal cysts measure up to 3.8 cm. There is no hydronephrosis. Unremarkable urinary bladder. Mildly enlarged prostate. Small fat filled inguinal her nias. Atherosclerosis of the aorta. No lymphadenopathy. No bowel obstruction or bowel wall thickening . Mild colonic fecal retention. Normal appendix. Unremarkable soft tissues. Left hip arthroplasty. No acute fracture. CT LUMBAR SPINE: Moderate multilevel osteophytosis and facet arthrosis. No acute fracture, subluxation, endplate eros ion or marrow replacing process. Mild levoscoliosis. Suboptimal evaluation of the central canal and n eural foramina by CT technique. Moderate degeneration of the SI joints. Posterior annular disc bulge at L4-L5, eccentric to the left lateral recess and neural foramen are again noted causing moderate le ft foraminal narrowing. IMPRESSION: 1. No acute intra-abdominal or intrapelvic abnormality. 2. No acute fracture identified. 3. Incidental findings as above. ACT 112: Negative or not required by law. The above report was generated using voice recognition software. It may contain grammatical, syntax o r spelling errors. Electronically signed by: Babak Alston M.D. 08/24/2023 6:30 PM
[2023-08-24] MEDS ORDERED: PROMETHAZINE HCL 12.5 MG in SODIUM CHLORIDE 0.9% 50 ML IV PRN (19:38)
[2023-08-24] MEDS ORDERED: MoRPHine SULFATE 4 MG/ML 1 ML CARP\\VIAL IV PRN (19:38)
[2023-08-24] MEDS ORDERED: ACETAMINOPHEN 325 MG TAB PO PRN (19:38)
[2023-08-24] MEDS: cloNIDine HCL 0.1 MG TAB PO ONE (20:13)
--- NOTE | 2023-08-24 20:16 | History & Physical Report ---
Date of Service August 24, 2023 Assessment & Plan (1) Intractable low back pain: Plan: Worsening lumbago with episodic radiculopathy symptoms History chronic back pain/sciatic as per records hypertension, elevated secondary to discomfort hyperlipidemia, on statin Rx prediabetes, hemoglobin A1c of 6.1 last May 2023 OBS GMF Analgesia MRI lumbar spine given protracted symptoms Orthopedic spine consult in a.m. (Patient known to Dr. Sahu.) DVT prophylaxis. SCDs for now re: possible procedure Full code Text document was generated using Pythian voice recognition software. It may contain grammatical or spelling errors. Kindly contact undersigned for clarification of any documentation item in question. History of Present Illness Chief Complaint: Worsening back pain Primary Care Provider: Ranjan Adam DO History obtained from patient, family, and records. Medical history significant for hypertension, hyperlipidemia, chronic back pain/sciatica as per records, prediabetes. Last confinement December 2018 under Orthopedics service for elective left total hip arthroplasty. Uneventful postop course. Last month, patient noted gradual worsening of chronic low back pain. No recollection of trauma or unusual exertion. Discomfort worsened by ambulation. No fever, no chills, no weight loss, no hematuria. Occasional leg radiation. No weakness or incontinence symptoms. No headache symptoms. [place] [facility] [place] contemplated next week as per fredy garcia. Patient brought by family to ER for worsening symptoms. Intractable discomfort at the ER. Initial SBP at the ER 170s. 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 Allergies Allergy/AdvReac Type Severity Reaction Status Date / Time clavulanic acid Allergy Intermediate itching Verified 08/24/23 18:46 Home Medications Medication Instructions Recorded Confirmed Type cholecalciferol (vitamin D3) 25 1,000 unit PO QAM 01/25/18 08/24/23 History mcg (1,000 unit) capsule (Vitamin D3) losartan 100 mg tablet 100 mg PO QAM 01/25/18 08/24/23 History multivitamin 1 tab PO QAM 01/25/18 08/24/23 History diclofenac sodium 75 mg 75 mg PO BID PRN pain #30 tabs 09/29/22 08/24/23 Rx tablet,delayed release tizanidine 4 mg tablet 4 mg PO BID PRN muscle spasticity 11/02/22 08/24/23 Rx #30 tabs aspirin 81 mg tablet,delayed 81 mg PO QAM 08/24/23 08/24/23 History release (Ecotrin Low Strength) ezetimibe 10 mg tablet 10 mg PO QAM 08/24/23 08/24/23 History meloxicam 7.5 mg tablet 7.5 mg PO DAILY 08/24/23 08/24/23 History Past Med/Surg History Medical History TMJ (temporomandibular joint syndrome) hx locking x 2 (has not locked in "years") Obesity (BMI 35.0-39.9 without comorbidity) Osteoarthritis Hypertension Surgical History History of left cataract extraction History of right cataract extraction History of carpal tunnel release B/L History of total knee replacement B/L History of colonoscopy History of tooth extraction Family History Mother Family history of diabetes mellitus Social History Smoking Status: Never smoker Second Hand Exposure: No; Do You Dip or Chew Tobacco: No; Hx Alcohol Use: Yes Alcohol type: beer Hx Substance Use: No Preferred Language: Jamaican Communication Ability: Effective Visual Impairment: No Limitations Venetian Blind Tape Cutter Required: No Beliefs That Will Affect Care: None marital status: Current Living Situation: Spouse Current Living Situation Comment: NA Other Information That Helps Us Care for You: No Feels Safe at Home: Yes Safety Concerns: Feels Safe At This Time Assistive Devices: Glasses Review of Systems Review of Systems: As per HPI, all other systems reviewed and negative Physical Exam Physical Exam: GENERAL: Slightly uncomfortable, obese, pleasant, sitting on a wheelchair, no respiratory distress SKIN: Normal color, warm HEENT: Alopecia, pink palpebral conjunctivae, no ptosis, dry buccal mucosa NECK : Supple, short neck, no tenderness CHEST : CTA, no tenderness HEART : RRR, no obvious murmurs ABDOMEN: Some distention, nontender BACK : Low back tenderness, negative straight leg raise test EXTREMITIES : No LE swelling/tenderness, no other conspicuous deformities noted NEUROLOGIC : Coherent, no facial asymmetry, no other gross focality Results & Data Results & Data Vital Signs (Past 12 Hours) Vital Signs Temp Pulse Pulse Resp BP BP Pulse Ox 08/24/23 20:02 68 18 143/81 H 95 08/24/23 15:53 08/24/23 13:21 36.3 C L 100 H 20 179/124 H 95 O2 Del Method 08/24/23 20:02 Room Air 08/24/23 15:53 Room Air 08/24/23 13:21 Room Air Laboratory Results Laboratory Results WBC 8.32 K/ul (4.8-10.8) 08/24/23 16:20 RBC 5.90 M/uL (4.70-6.10) 08/24/23 16:20 Hgb 17.6 g/dl (14.0-18.0) 08/24/23 16:20 Hct 52.3 % (42.0-52.0) H 08/24/23 16:20 MCV 88.6 fL (80.0-100.0) 08/24/23 16:20 MCH 29.8 pg (25.0-34.0) 08/24/23 16:20 MCHC 33.7 g/dL (32.0-36.0) 08/24/23 16:20 RDW Std Deviation 41.8 fL (36.4-46.3) 08/24/23 16:20 RDW Coeff of Akira 12.8 % (11.5-14.5) 08/24/23 16:20 Plt Count 219 K/uL (130-400) 08/24/23 16:20 MPV 9.2 fL (9.4-12.4) L 08/24/23 16:20 Immature Gran % (Auto) 0.6 % 08/24/23 16:20 Neut % (Auto) 77.5 % 08/24/23 16:20 Lymph % (Auto) 19.0 % 08/24/23 16:20 Alcorn % (Auto) 2.5 % 08/24/23 16:20 Eos % (Auto) 0.0 % 08/24/23 16:20 Baso % (Auto) 0.4 % 08/24/23 16:20 Neut # (Auto) 6.45 K/uL (1.40-6.50) 08/24/23 16:20 Lymph # (Auto) 1.58 K/uL (1.20-3.40) 08/24/23 16:20 Alcorn # (Auto) 0.21 K/uL (0.11-0.59) 08/24/23 16:20 Eos # (Auto) 0.00 K/uL (0.00-0.50) 08/24/23 16:20 Baso # (Auto) 0.03 K/uL (0.00-0.20) 08/24/23 16:20 Immature Gran # (Auto) 0.05 K/uL (0.01-0.20) 08/24/23 16:20 Sodium 137 mmol/L (136-145) 08/24/23 16:20 Potassium 4.3 mmol/L (3.5-5.1) 08/24/23 16:20 Chloride 105 mmol/L (98-107) 08/24/23 16:20 Carbon Dioxide 25 mmol/L (21-32) 08/24/23 16:20 Anion Gap 7 (3-11) 08/24/23 16:20 BUN 26 mg/dl (6-23) H 08/24/23 16:20 Creatinine 0.86 mg/dl (0.6-1.4) 08/24/23 16:20 Est Cr Clr Drug Dosing 109.8 ml/min 08/24/23 16:20 Est GFR ( Amer) 101.1 ml/min 08/24/23 16:20 Est GFR (Non-Af Amer) 87.2 ml/min 08/24/23 16:20 BUN/Creatinine Ratio 30.2 (10-20) H 08/24/23 16:20 Glucose 137 mg/dl (70-99(Fasting)) H 08/24/23 16:20 Calcium 10.0 mg/dl (8.6-10.3) 08/24/23 16:20 Total Bilirubin 0.6 mg/dl (0.2-1.0) 08/24/23 16:20 AST 17 U/L (13-39) 08/24/23 16:20 ALT 16 U/L (7-52) 08/24/23 16:20 Alkaline Phosphatase 33 U/L (34-104) L 08/24/23 16:20 Total Protein 8.0 gm/dl (6.0-8.3) 08/24/23 16:20 Albumin 4.8 gm/dl (3.4-5.0) 08/24/23 16:20 Globulin 3.2 gm/dl (2.5-4.0) 08/24/23 16:20 Albumin/Globulin Ratio 1.5 (0.9-2) 08/24/23 16:20 Impressions Abdomen/Pelvis CT 08/24/23 15:[address] WITH IV CONTRAST; CT LUMBAR SPINE WITH IV CONTRAST CT DOSE: 1479.25 mGy.cm HISTORY: Acute right lower abdominal and back pain without reported trauma R lower back pain TECHNIQUE: Multiaxial CT images of the abdomen and pelvis were performed following the IV administration of 91 cc of Optiray, A dose lowering technique was utilized adhering to the principles of ALARA. COMPARISON STUDY: MRI lumbar spine 12/14/2020 FINDINGS: CT ABDOMEN/PELVIS: Coronary arterial calcifications. Clear lung bases. No free air. Unremarkable spleen, mildly atrophic pancreas and adrenal glands. Unremarkable gallbladder. Hepatic steatosis. Patency of the hepatic and portal veins. Mild nonspecific bilateral perinephric stranding. Left renal cysts measure up to 3.8 cm. There is no hydronephrosis. Unremarkable urinary bladder. Mildly enlarged prostate. Small fat filled inguinal hernias. Atherosclerosis of the aorta. No lymphadenopathy. No bowel obstruction or bowel wall thickening. Mild colonic fecal retention. Normal appendix. Unremarkable soft tissues. Left hip arthroplasty. No acute fracture. CT LUMBAR SPINE: Moderate multilevel osteophytosis and facet arthrosis. No acute fracture, subluxation, endplate erosion or marrow replacing process. Mild levoscoliosis. Suboptimal evaluation of the central canal and neural foramina by CT technique. Moderate degeneration of the SI joints. Posterior annular disc bulge at L4-L5, eccentric to the left lateral recess and neural foramen are again noted causing moderate left foraminal narrowing. IMPRESSION: 1. No acute intra-abdominal or intrapelvic abnormality. 2. No acute fracture identified. 3. Incidental findings as above. ACT 112: Negative or not required by law. The above report was generated using voice recognition software. It may contain grammatical, syntax or spelling errors. Electronically signed by: Babak Alston M.D. 08/24/2023 6:[address] 08/24/23 15:[address] WITH IV CONTRAST; CT LUMBAR SPINE WITH IV CONTRAST CT DOSE: 1479.25 mGy.cm HISTORY: Acute right lower abdominal and back pain without reported trauma R lower back pain TECHNIQUE: Multiaxial CT images of the abdomen and pelvis were performed following the IV administration of 91 cc of Optiray, A dose lowering technique was utilized adhering to the principles of ALARA. COMPARISON STUDY: MRI lumbar spine 12/14/2020 FINDINGS: CT ABDOMEN/PELVIS: Coronary arterial calcifications. Clear lung bases. No free air. Unremarkable spleen, mildly atrophic pancreas and adrenal glands. Unremarkable gallbladder. Hepatic steatosis. Patency of the hepatic and portal veins. Mild nonspecific bilateral perinephric stranding. Left renal cysts measure up to 3.8 cm. There is no hydronephrosis. Unremarkable urinary bladder. Mildly enlarged prostate. Small fat filled inguinal hernias. Atherosclerosis of the aorta. No lymphadenopathy. No bowel obstruction or bowel wall thickening. Mild colonic fecal retention. Normal appendix. Unremarkable soft tissues. Left hip arthroplasty. No acute fracture. CT LUMBAR SPINE: Moderate multilevel osteophytosis and facet arthrosis. No acute fracture, subluxation, endplate erosion or marrow replacing process. Mild levoscoliosis. Suboptimal evaluation of the central canal and neural foramina by CT technique. Moderate degeneration of the SI joints. Posterior annular disc bulge at L4-L5, eccentric to the left lateral recess and neural foramen are again noted causing moderate left foraminal narrowing.
[2023-08-24] MEDS ORDERED: tiZANidine HCL 4 MG TABLET PO PRN (20:17)
[2023-08-24 21:25] LABS: Appearance Urine Clear (Clear); Bacteria Urine Automated None Seen (None Seen); Bilirubin Urine Negative (Negative); Blood Urine Negative (Negative); Calcium Oxalate Crystals Urine Present (None Prsent); Cast Urine Automated 0-2 /lpf (0-2); Color Urine Yellow; Epithelial Cell Urine Auto 0-2 /hpf (0-2); Glucose Urine UA Negative (Negative); Ketones Urine Negative (Negative); Leukocyte Esterase Urine Negative (Negative); Nitrite Urine Negative (Negative); Protein Urine 1+ (Negative); RBC Urine Automated 0-2 /hpf (0-2); Specific Gravity Urine > 1.045 (1.000-1.030); Urobilinogen Urine Negative (Negative); WBC Urine Automated 0-5 /hpf (0-5); pH Urine 5.5 (4.5-7.5)
--- NOTE | 2023-08-24 21:56 | Magnetic Resonance Report ---
Exam(s): MRI L SPINE Without Contrast EXAM: MR Lumbar Spine Without Intravenous Contrast CLINICAL HISTORY: Reason for exam: lbp 1 month. TECHNIQUE: Magnetic resonance images of the lumbar spine without intravenous contrast in multiple planes. COMPARISON: CT lumbar spine from August 24, 2023 MRI lumbar spine from December 14, 2020 FINDINGS: Vertebrae: Unremarkable. No acute fracture or subluxation is seen involving the lumbar spine. Spinal cord: Unremarkable. Normal signal. Soft tissues: Unremarkable. DISCS/SPINAL CANAL/NEURAL FORAMINA: L1-L2: Mild degenerative disc disease. No stenosis. L2-L3: Mild degenerative disc disease and facet arthrosis. 3-4 mm broad-based posterior disc bulge. The spinal stenosis. There is mild right neural foraminal narrowing. L3-L4: Mild degenerative disc disease and facet arthrosis. 3-4 mm broad-based posterior disc bulge. No spinal stenosis. There is moderate right and mild left neural foraminal narrowing. L4-L5: Mild degenerative disc disease. There is 4-5 mm broad-based posterior and left-sided disc bulge as well as mild facet arthrosis. No spinal stenosis is seen. There is severe left and moderate right neural foraminal narrowing. L5-S1: Mild degenerative disc disease. 2 days 3 mm broad-based posterior disc bulge. No spinal stenosis. There is mild bilateral neural foraminal narrowing. IMPRESSION: 1. No acute fracture or subluxation is seen involving the lumbar spine. 2. Mild to moderate multilevel degenerative disc disease and facet arthrosis throughout the lumbar spine. No significant spinal stenosis is seen. There are varying degrees of neural foraminal narrowing as described above. Little changed since previous. Electronically signed by: Gianfranco Martinez MD 08/24/23 21:56 PM
[2023-08-24] MEDS: oxyCODONE HCL IR 5 MG TAB (IMMEDIATE RELEASE) PO PRN (22:04)
[2023-08-24] MEDS: SODIUM CHLORIDE 0.9% 1,000 ML IV ONE (23:27)
[2023-08-24] MEDS: CYCLOBENZAPRINE HCL 5 MG TAB PO PRN (23:27)
[2023-08-25] MEDS ORDERED: CYCLOBENZAPRINE HCL 10 MG TAB PO PRN (03:03)
[2023-08-25] MEDS: CYCLOBENZAPRINE HCL 5 MG TAB PO STA (03:30)
[2023-08-25] MEDS: HYDROmorphone INJ 0.5 MG/0.5 ML SYR IV PRN (07:25)
[2023-08-25] MEDS: MULTIVITAMIN TAB PO SCH (08:28)
[2023-08-25] MEDS: EZETIMIBE 10 MG TAB PO SCH (08:28)
[2023-08-25] MEDS: LOSARTAN POTASSIUM 50 MG TAB PO SCH (08:28)
[2023-08-25] MEDS ORDERED: DEXAMETHASONE SOD INJ 4 MG/ML VIAL IV SCH (09:30)
[2023-08-25] MEDS: LIDOCAINE 5% 1 PATCH TD SCH (10:05)
[2023-08-25] MEDS: CYCLOBENZAPRINE HCL 10 MG TAB PO SCH (10:05)
[2023-08-25] MEDS: dexAMETHasone 8 MG in SYRINGE 0 ML IV SCH (10:05)
--- NOTE | 2023-08-25 11:58 | Orthopedic Consultation ---
Date of Service August 25, 2023 Assessment & Plan (1) Intractable low back pain: (2) Low back pain: Plan I reviewed with the patient the results from the MRI noting some degenerative changes involving lumbar spine but no critical areas of stenosis, no other specific reason noted for the pain, explaining most likely it is coming from some disc degeneration and/or facet arthritis aggravated but without specific activity associated. I recommend careful mobilization with physical therapy, appropriate medication, I do feel he should be evaluated by pain management as I do not see any findings on the MRI that I recommend surgical intervention, he was in agreement with this plan. History of Present Illness Reason for Consultation: . Low back pain Requesting Physician: . Attending Physician: Junaid Norton MD 73-year-old male that presents to the emergency department with complaints of "back pain". The patient states that he is experiencing back pain and has been experiencing back pain for the past month. However, as of recent it is worsened and now the spasms in the right back are to a point where he is not really able to move without significant pain. He states that the pain is mostly located in the right low back area. It does not radiate down the legs. However, he does note that when the pain first occurred about a month ago there was pain and numbness in the bilateral feet but that has resolved. He denies any lower extremity weakness, bowel or bladder incontinence, numbness or tingling in the genital region. He denies any history of spine surgeries. No infectious symptoms. No fevers or chills. Today in conversing with the patient, he notes pain more in the right lumbosacral region, but no radiation into the lower extremities. He is having spasms when mobilizing. Patient notes some spasms when mobilizing but improved to some degree since admission and pain management. Exam today reveals patient indicate pain right lumbosacral junction, he has intact strength in lower extremities with the ability to flex and extend the hips knees and ankles, EHL 5 or 5 in strength, negative straight leg raise. MR Lumbar Spine Without Intravenous Contrast August 24, 2023 CLINICAL HISTORY: Reason for exam: lbp 1 month. TECHNIQUE: Magnetic resonance images of the lumbar spine without intravenous contrast in multiple planes. COMPARISON: CT lumbar spine from August 24, 2023 MRI lumbar spine from December 14, 2020 FINDINGS: Vertebrae: Unremarkable. No acute fracture or subluxation is seen involving the lumbar spine. Spinal cord: Unremarkable. Normal signal. Soft tissues: Unremarkable. DISCS/SPINAL CANAL/NEURAL FORAMINA: L1-L2: Mild degenerative disc disease. No stenosis. L2-L3: Mild degenerative disc disease and facet arthrosis. 3-4 mm broad-based posterior disc bulge. The spinal stenosis. There is mild right neural foraminal narrowing. L3-L4: Mild degenerative disc disease and facet arthrosis. 3-4 mm broad-based posterior disc bulge. No spinal stenosis. There is moderate right and mild left neural foraminal narrowing. L4-L5: Mild degenerative disc disease. There is 4-5 mm broad-based posterior and left-sided disc bulge as well as mild facet arthrosis. No spinal stenosis is seen. There is severe left and moderate right neural foraminal narrowing. L5-S1: Mild degenerative disc disease. 2 days 3 mm broad-based posterior disc bulge. No spinal stenosis. There is mild bilateral neural foraminal narrowing. IMPRESSION: 1. No acute fracture or subluxation is seen involving the lumbar spine. 2. Mild to moderate multilevel degenerative disc disease and facet arthrosis throughout the lumbar spine. No significant spinal stenosis is seen. There are varying degrees of neural foraminal narrowing as described above. Little changed since previous. MRI images lumbar spine from August 24, 2023 were reviewed, this is my separate interpretation, this reveals the patient to have some limited degenerative changes throughout the lumbar spine, no notable areas of stenosis, there are degenerative changes. To be more at the L4-5 level, there is some moderate foraminal narrowing at this region and some facet arthrosis. Allergies Allergy/AdvReac Type Severity Reaction Status Date / Time clavulanic acid Allergy Intermediate itching Verified 08/24/23 18:46 Home Medications Medication Instructions Recorded Confirmed Type cholecalciferol (vitamin D3) 25 1,000 unit PO QAM 01/25/18 08/24/23 History mcg (1,000 unit) capsule (Vitamin D3) losartan 100 mg tablet 100 mg PO QAM 01/25/18 08/24/23 History multivitamin 1 tab PO QAM 01/25/18 08/24/23 History diclofenac sodium 75 mg 75 mg PO BID PRN pain #30 tabs 09/29/22 08/24/23 Rx tablet,delayed release tizanidine 4 mg tablet 4 mg PO BID PRN muscle spasticity 11/02/22 08/24/23 Rx #30 tabs aspirin 81 mg tablet,delayed 81 mg PO QAM 08/24/23 08/24/23 History release (Ecotrin Low Strength) ezetimibe 10 mg tablet 10 mg PO QAM 08/24/23 08/24/23 History meloxicam 7.5 mg tablet 7.5 mg PO DAILY 08/24/23 08/24/23 History Past Med/Surg History Medical History TMJ (temporomandibular joint syndrome) hx locking x 2 (has not locked in "years") Obesity (BMI 35.0-39.9 without comorbidity) Osteoarthritis Hypertension Surgical History History of left cataract extraction History of right cataract extraction History of carpal tunnel release B/L History of total knee replacement B/L History of colonoscopy History of tooth extraction Family History Mother Family history of diabetes mellitus Social History Smoking Status: Never smoker Second Hand Exposure: No; Do You Dip or Chew Tobacco: No; Hx Alcohol Use: Yes Alcohol type: beer Hx Substance Use: No Preferred Language: Greenlandic Communication Ability: Effective Visual Impairment: No Limitations Anesthesiologist/Physician Required: No Beliefs That Will Affect Care: None marital status: Current Living Situation: Spouse Current Living Situation Comment: NA Other Information That Helps Us Care for You: No Feels Safe at Home: Yes Safety Concerns: Feels Safe At This Time Assistive Devices: Glasses Review of Systems All systems reviewed & are unremarkable except as noted in HPI & below. Physical Exam . Results & Data Results & Data Laboratory Results . Diagnostic Findings . PG Care Time/CCT Total # of Minutes Spent Total Time Spent with Patient: Total time spent is greater than 50% in coordination of care (as documented) at patient's floor/unit and/or counseling patient: Coding Level of Care Code 52064 IN/OBS CONSULT LVL 3,45M Diagnoses Intractable low back pain M54.59 Low back pain M54.50
--- OUTSIDE RECORDS SUMMARY | 2023-08-25 12:26 | External Medical Summary | Summary of Care ---
Author Name Unknown Organization [facility] Address [address] [facility] [place] [address] Phone [phone] Care Team Providers Care Nursery Helper Name Role Phone Ranjan Adam DO Primary Care Provider Reason for Visit * Reason Onset Date Comments Medication Pre-auth 05/25/2023 Zepbound 2.5 MG/0.5ML Subcutaneous Solution Auto-injector (Tirzepatide-Weight Managemen Encounter Details Date Type Department Care Team (Late st Contact Info) Description 05/25/[address] [facility] [address] [place] [address] Ranjan Adam DO [address] [place] [address] Medication Pre-auth (Zepbound 2.5 MG/0.5ML... Allergies Active Allergy Reactions Criticality Noted Date Comments Clavulanic Acid 04/14/2004 diarrhea & indigestion Felodipine Edema Other,Muscle pain 11/05/2012 Leg and thigh pain Pantoprazole Diarrhea Medium 06/09/2020 documented as of this encounter (statuses as of 06/01/2023) Medications Medication Sig Dispensed Refills Start Date End Date Status VITAMIN D 1000 UNITS PO TABS one tablet daily 0 11/05/2012 Activ e Multiple Vitamins-Minerals (MULTIVITAMIN ADULTS 50+) TABSIndications:gena ly Take by mouth. 0 Active Diclofenac Sodium 1 % Transdermal GelIndications:Gene ralized osteoarthritis of multiple sites Place 4 g topically on the skin 2 times a day. To affected area as directed. 100 g 5 12/20/2020 Active Aspirin Low Dose 81 MG Oral Tablet Delayed Release (aspirin enteric coated)Indications: Prediabetes,HTN, goal below 130/80 take 1 tablet by mouth once daily 90 Tablet 3 12/19/2021 Active Fluorouracil 5 % External Cream (Efudex)Indications :Actinic keratosis Apply to forehead and scalp 2x daily for 3 weeks then send photos through My Chart at the end of the treatment. 40 g 0 03/12/2023 Active guaiFENesin-Codeine 100-10 MG/5ML Oral Syrup (Robitussin AC)Indications:Brenda l URI with cough Take 5 mL by mouth every 4 hours as needed for Cough. 120 mL 0 04/27/2023 Active Additional Information Patient not taking.Reported on 05/24/2023 Losartan Potassium 100 MG Oral Tablet (Cozaar)Indications :HTN, goal below 130/80 Take 1 Tablet by mouth in the morning. 90 Tablet 3 05/24/2023 Active Ezetimibe 10 MG Oral Tablet (Zetia)Indications: Dyslipidemia, goal LDL below 100 Take 1 Tablet by mouth in the morning. 90 Tablet 3 05/24/2023 Active Meloxicam 7.5 MG Oral Tablet (Mobic)Indications: Lumbar degenerative disc disease Take 1 Tablet by mouth in the morning. 90 Tablet 3 05/24/2023 Active Cyclobenzaprine HCl 5 MG Oral Tablet (Flexeril)Indicatio ns:Back strain, initial encounter Take 1 Tablet by mouth 3 times a day as needed for Muscle spasms. 30 Tablet 05/24/2023 Active Albuterol Sulfate HFA 108 (90 Base) MCG/ACT Inhalation Aerosol SolutionIndications :Paroxysmal cough Inhale 2 Puffs by mouth every 6 hours as needed for Cough or Wheezing. 36 g 1 05/24/2023 Active Sildenafil Citrate 100 MG Oral TabletIndications:E rectile dysfunction due to diseases classified elsewhere Take 1 Tablet by mouth daily as needed for Erectile Dysfunction. 30 Tablet 05/24/2023 Active Zepbound 2.5 MG/0.5ML Subcutaneous Solution Auto-injector (Tirzepatide-Weight Management) Inject 2.5 mg under the skin once a week. 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 documented as of this encounter (statuses as of 06/01/2023) Resolved Problems Problem Noted Date Diagnosed Date Resolved Date Prediabetes 06/19/2017 05/24/2018 Overview: Per Prediabetes protocol #1 Obesity, Class II, BMI 35-39 .9, isolated (see actual BMI) 07/26/2011 02/08/2017 Overview: Per Obesity protocol #1 Obesity, Class III, BMI 40-4 9.9 (morbid obesity) 05/10/2011 07/26/2011 Obesity, morbid (more than 1 00 lbs over ideal weight or BMI > 40) 08/03/2009 03/25/2012 Overview: Per Obesity Taxonomy ICD-10 update of inactive term Sciatica 06/01/2009 05/03/2018 Dyslipidemia, goal to be determined 04/15/2009 04/16/2013 Overview: Per Lipid Taxonomy. HYPERTENSION NOS 01/01/2002 03/25/2009 Overview: Modified per HTN protocol #16. Mixed dyslipidemia 01/01/2002 9 Overview: Per Lipid Taxonomy. OBESITY, UNSPECIFIED 01/01/2002 010 Overview: Per Obesity Taxonomy OA (osteoarthritis) of knee 05/03/2018 Overview: rigth knee replacement documented as of this encounter (statuses as of 06/01/2023) Immunizations Name Administration Dates Next Due COVID-19 mRNA, LNP-s, No Pre serve, 2-Dose Series (Moderna) 07/05/2020,05/31/2020 COVID-19, mRNA, LNP-s, PF, B ooster, 100mcg/0.5mg (Moderna) 03/07/2021 Pneumococcal Conjugate Vacc, 13 Valent (Prevnar) 05/24/2017 Pneumococcal Polysaccharide PPV23 (Pneumovax) 11/22/2018 Seasonal Influenza Virus Vac cine, Unspecified Formulation 05/18/2019 Seasonal Influenza, PF, 6 M & above, IM , (FluLaval or Fluzone) 04/06/2023,03/01/2022,03/23/2020,05/03,05/24/2017 Seasonal Influenza, Split, I IV3, With Preserve, Inj 04/16/2013,05/31/2012 Seasonal Influenza, Trivalen t, Adjuvanted, 65+ yrs 05/18/2019 TD - Tetanus/Diptheria (ADULT) 05/13/2003 TDAP (age 11 and older)(Adacel) 02/08/2011 Varicella Zoster Vaccine (Adult) 02/04/2015 Zoster Vaccine Recombinant (Shingrix) 10/25/2019 ,05/24/2019 documented as of this encounter Social History Tobacco Use Types Packs/Day Years Used Date Smoking Tobacco: Never Smokeless Tobacco: Never Alcohol Use Standard Drinks/Week Comments No 0 (1 standard drink = 0.6 oz pur e alcohol) occ PHQ-2 Answer Date Recorded PHQ Adult Total Score 0 08/17/2022 Hunger Vital Sign Answer Date Recorded Worried About Running Out of Food in the Last Ye ar Never true 07/02/2019 Ran Out of Food in the Last Year Never true 07/02/2019 Sex and Gender Information Value Date Recorded Sex Assigned at Male 07/02/2019 8:56 AM EST Gender Identity Male 07/02/2019 8:56 AM EST Sexual Orientation Straight 07/02/2019 8: 56 AM EST Job Start Date Occupation Industry Not on file Not on file Not on file documented as of this encounter Miscellaneous Notes * Addendum Note - Ciaran Michael RP - 06/01/2023 3:51 PM ESTAddended by: CIARAN MICHAEL on: 06/01/2023 03:51 PM Modules accepted: Orders * Telephone Encounter - Ciaran Michael RP - 06/01/2023 3:50 PM EST Zepbound not covered for patient; formulary exclusion. Pt's insurance does not cover any medicationfor weight loss. Ozempic and other GLP1s only covered for DM dx. Patient has nutrition referral pending. Please advise if you wish to modify therapy. Thank you, Ciaran Michael, PharmD, TONG Clinical Pharmacist [facility] ([facility]) (formerly [facility]) 06/01/23 3:50 PM [phone] * Telephone Encounter - Evin Delgado CPhT - 06/01/2023 1:28 PM EST Checked status of prior authorization for Zepbound through Telephone. Routed high priority to refill call center pharmacist pool due to denial. Denial reason: weight loss medications excluded Thank you, Abdi Delgado (contact lens manufacturer) Wholesale Buyer III [facility] ([facility]) ([facility]) 06/01/2023, 1:28 PM * Telephone Encounter - Evin Delgado CPhT - 05/31/2023 9:45 AM EST Checked status of prior authorization for Zepbound through CMM. Awaiting response from insurance. Grief Counselor will review again. Reminder: Pharmacist requests prior auth be sent back if no response by 06/01. Thank you, Abdi Delgado ([facility]) Wholesale Buyer III [facility] ([facility]) (formerly [facility]) 05/31/2023, 9:45 AM * Telephone Encounter - Viry Reed hotbed lever operator - 05/31/2023 9:00 AM EST Emeka calling to check on status of zepbound. Advised still in process per above. Caller can be reached at [phone]. Thank You, Viry Reed CPhT Wholesale Buyer II [facility] ([facility]) (Formerly Telepharmacy) 05/31/2023, 9:00 AM * Telephone Encounter - Evin Delgado CPhT - 05/30/2023 9:58 AM EST Checked status of prior authorization for Zepbound through CMM. Routed high priority to refill callcenter pharmacist pool due to additional information needed. Additional information needed: Was able to answer additional information and submitted back to plan Reminder: Pharmacist requests prior auth be sent back if no response by 06/01. Return date updated to allow processing time Thank you, Abdi Delgado ([facility]) Wholesale Buyer III [facility] ([facility]) (formerly Telepharmacy) 05/30/2023, 9:58 AM * Telephone Encounter - Mari Keith hotbed lever operator - 05/29/2023 11:42 AM EST Submitted information in previous note via CMM ([place]: [id number]).. Awaiting payer response. We will follow-up with insurance starting 05/30. Per [facility] request, if no decision is received from insurance by 05/31, we will route back to the [facility] after clarifying with the pharmacy that the claim is still not processing. Thanks, Mari Keith Wholesale Buyer III [facility] ([facility]) 05/29/2023,11:42 AM * Telephone Encounter - Anat Rojas, [facility] - 05/28/2023 3:53 PM EST Please submit PA. Include the following documentation: OV note 05/24/23 Please copy and paste the following information into PA form: Referral to Nutrition and weight management placed 05/24/23 - patient has not yet been able to schedule appt. Obesity related co-morbidities: Hypertension, pre-diabetes, dyslipidemia What other drugs is there medical record documentation of therapeutic failure on, intolerance to, or contraindication to for this condition? N/A Dk as urgent: No Diagnosis/ICD-10 Code(s): Z68.41 If instantaneous decision is not received after submitting prior auth, please continue to follow upon this and route back to the [facility] pool if no decision is made by the insurance by 06/04, after clarifying with the pharmacy that the claim is still not processing. If PA is denied, please also route back to [facility] pool. Thank you, Anat Rojas, [place] Clinical Pharmacist [facility] ([facility]) 05/28/23 3:53 PM [phone] * Telephone Encounter - Hannah Bryant PHARM Tech - 05/25/2023 10:57 AM EST Patient calling to inform doctor that the patient's insurance will not pay for this medication without a completed prior authorization. Did confirm this information with the pharmacy. Pt's current insurance information is as follows: Patient name: Emeka Torrez JrHeather ID number: [id number] BIN number: [id number] PCN number: [id number] Group number: [id number] Subscriber name: Emeka Torrez JrHeather Primary or Secondary Insurance:Primary Medication: Zepbound 2.5 MG/0.5ML Subcutaneous Solution Auto-injector (Tirzepatide-Weight Managemen Reason for Request: required Pharmacy and phone number: [id number] [address] [place] [address] Rx plan and phone number: medcare part d [phone] Is this a new medication for the patient? Yes What alternative medications does the pharmacy have in stock?: n/a Thank you for your assistance Hannah Bryant Wholesale Buyer II [facility] ([facility]) (Former[facility]) 05/25/2023,10:57 AM documented in this encounter Plan of Treatment Upcoming Encounters Date Type Department Care Team (Late st Contact Info) Description 03/06/2024 5:20 PM EDT Office Visit [facility] [address] [place] [address] Ranjan Adam DO [address] [place] [address] 03/26/2024 10:20 AM EST Office Visit Dermatology [address] [place] [address] Mariza Garza PA-C [address] [place] [address] [place] [address] 08/25/2024 11:40 AM EDT Office Visit [facility] [address] [place] [address] Ranjan Adam DO [address] [place] [address] Scheduled Procedures Name Priority Associated Diagnoses Date/Ti me COLONOSCOPY FLEXIBLE PROXIMAL DIAGNOSTIC Recall History of colon polyps Health Maintenance Due Date Last Done Comments DTaP,Tdap,and Td Vaccines (2 - Td or Tdap) 02/08/2021 02/08/2011, 05/13/2003 COVID-19 Vaccine (4 - 2023- season) 2023 03/07/2021, 07/05/2020, 05/31/2020 Depression Screening 08/18/2023 08/17/2022 GFR 05/24/2024 05/24/2023, 08/05, 10/17/2021, Additional history exists HbA1c 05/24/2024 05/24/2023, 08/05, 10/17/2021, Additional history exists COLONOSCOPY-EVERY 5 YRS AGES 18-100 10/21/2024 10/22/2019, 10/22/2019, 07/07/2016, Additional history exists Albumin/Creatinine Ratio 05/24/2026 024, 08/22/2022, 09/08/2020, Additional history exists Lipid Panel 05/24/2028 05/24/2023, 08/05, 07/11/2021, Additional history exists Pneumococcal Vaccine: 65+ Years Completed 11/22/2018, 05/24/2017 COLONOSCOPY-EVERY 3 YRS AGES 18-100 Discontinued 10/22/2019, 10/22/2019, 07/07/2016, Additional history exists Zoster Vaccines Completed 10/25/2019, 05/07, 02/04/2015 Influenza Vaccine (FLU shot) Completed 04/06/2023, 03/01/2022, 03/23/2020, Additional history exists GARDASIL-HPV IMMUNIZATION SERIES Aged Out No longer eligible based on patient's age to complete this topic Hepatitis B Aged Out No longer eligi ble based on patient's age to complete this topic MENINGOCOCCAL (MENACTRA/MENVEO) Aged Out No longer eligible based on patient's age to complete this topic documented as of this encounter Medical Devices Not on filedocumented as of this encounter Care Teams Nursery Helper Relationship Specialty Start Date End Date Ranjan Adam DO [address] [place] [address] PCP - General Family Medicine 07/02/19 documented as of this encounter
--- OUTSIDE RECORDS SUMMARY | 2023-08-25 12:26 | External Medical Summary | Summary of Care ---
Author Name Unknown Organization [facility] Address [address] [facility] [place] [address] Phone [phone] Care Team Providers Care Materials Coordinator Name Role Phone Ranjan Adam DO Primary Care Provider Reason for Visit * Reason Onset Date Comments Medication Pre-auth 05/25/2023 Zepbound 2.5 MG/0.5ML Subcutaneous Solution Auto-injector (Tirzepatide-Weight Managemen Encounter Details Date Type Department Care Team (Late st Contact Info) Description 05/25/2023 Telephone Family Practice [facility] [address] [place] [address] Ranjan [...] PO TABS one tablet daily 0 11/05/2012 Active Multiple Vitamins-Minerals (MULTIVITAMIN ADULTS 50+) TABSIndications:daily Take by mouth. 0 Active Diclofenac Sodium 1 % Transdermal GelIndications:Genera lized osteoarthritis of multiple sites Place 4 g topically on the skin 2 times a day. To affected area as directed. 100 g 5 12/20/2020 Active Aspirin Low Dose 81 MG Oral Tablet Delayed Release (aspirin enteric coated)Indications:Pr ediabetes,HTN, goal below 130/80 take 1 tablet by mouth once daily 90 Tablet 3 12/19/2021 Active Fluorouracil 5 % External Cream (Efudex)Indications:A ctinic keratosis Apply to forehead and scalp 2x daily for 3 weeks then send photos through My Chart at the end of the treatment. 40 g 0 03/12/2023 Active guaiFENesin-Codeine 100-10 MG/5ML Oral Syrup (Robitussin AC)Indications:Viral URI with cough Take 5 mL by mouth every 4 hours as needed for Cough. 120 mL 0 04/27/2023 Active Additional Information Patient not taking.Reported on 05/24/2023 Losartan Potassium 100 MG Oral Tablet (Cozaar)Indications:H TN, goal below 130/80 Take 1 Tablet by mouth in the morning. 90 Tablet 05/24/2023 Active Ezetimibe 10 MG Oral Tablet (Zetia)Indications:Dy slipidemia, goal LDL below 100 Take 1 Tablet by mouth in the morning. 90 Tablet 3 05/24/2023 Active Meloxicam 7.5 MG Oral Tablet (Mobic)Indications:Roseann mbar degenerative disc disease Take 1 Tablet by mouth in the morning. 90 Tablet 05/24/2023 Active Cyclobenzaprine HCl 5 MG Oral Tablet (Flexeril)Indications :Back strain, initial encounter Take 1 Tablet by mouth 3 times a day as needed for Muscle spasms. 30 Tablet 05/24/2023 Active Albuterol Sulfate HFA 108 (90 Base) MCG/ACT Inhalation Aerosol SolutionIndications:P aroxysmal cough Inhale 2 Puffs by mouth every 6 hours as needed for Cough or Wheezing. 36 g 05/24/2023 Active Sildenafil Citrate 100 MG Oral TabletIndications:Ere ctile dysfunction due to diseases classified elsewhere Take 1 Tablet by mouth daily as needed for Erectile Dysfunction. 30 Tablet 05/24/2023 Active Zepbound 2.5 MG/0.5ML Subcutaneous Solution Auto-injector (Tirzepatide-Weight Management) Inject 2.5 mg under the skin once a week. 3 mL 05/24/2023 Active documented as of this encounter (statuses as [...] as of this encounter Miscellaneous Notes * Telephone Encounter - Evin Delgado CPhT - 06/01/2023 1:28 PM EST Checked status of prior authorization for Zepbound through Telephone. Routed high priority to refill call center pharmacist pool due to denial. Denial reason: weight loss medications excluded Thank you, Abdi Delgado (Lisseth) Vegetable Worker III [facility] ([facility] ([facility]) 06/01/2023, 1:28 PM * Telephone Encounter - Evin Delgado CPhT - 05/31/2023 9:45 AM EST Checked status of prior authorization for Zepbound through CM. Awaiting response from insurance. Desulfurizer Operator will review again. Reminder: Pharmacist requests prior auth be sent back if no response by 06/01. Thank you, Abdi Delgado (Lisseth) Vegetable Worker III [facility] ([facility] ([facility]) 05/31/2023, 9:45 AM * Telephone Encounter - Viry Reed PHARM Tech - 05/31/2023 9:00 AM EST Emeka calling to check on status of zepbound. Advised still in process per above. Caller can be reached at [phone]. Thank You, Viry Reed CPhT Vegetable Worker II [facility] ([facility] (Former[facility]) 05/31/2023, 9:00 AM * Telephone [...] allow processing time Thank you, Abdi Delgado ([facility]) Vegetable Worker III [facility] ([facility] ([facility]) 05/30/2023, 9:58 AM * Telephone Encounter - Mari Keith plastics patternmaker - 05/29/2023 11:42 AM EST Submitted information in previous note via CMM ([place]: [id number]).. Awaiting payer response. We will follow-up with insurance starting 05/30. Per [facility] request, if no decision is received from insurance by 05/31, we will route back to the [facility] after clarifying with the pharmacy that the claim is still not processing. Thanks, Mari Keith Vegetable Worker III [facility] ([facility]) 05/29/2023,11:42 AM * [facility] - [facility]28/[facility]23 3:53 PM EST Please submit [...] or contraindication to for this condition? N/A Kd as urgent: No Diagnosis/ICD-10 Code(s): Z68.41 If instantaneous decision is not received after submitting prior auth, please continue to follow upon this and route back to the [facility] if no decision is made by the insurance by 06/04, after clarifying with the pharmacy that the claim is still not processing. If PA is denied, please also route back to [facility]. Thank you, Anat Rojas PharmD Clinical Pharmacist [facility] ([facility]) 05/28/23 3:53 PM [phone] * Telephone Encounter - Hannah Bryant PHARM Tech - 05/25/2023 10:57 AM EST Patient calling to inform doctor that the patient's insurance will not pay for this medication without a completed prior authorization. Did confirm this information with the pharmacy. Pt's current insurance information is as follows: Patient name: Emeka Torrez Jr. ID number: [id number] BIN number: [id number] PCN number: [id number] Group number: [id number] Subscriber name: Emeka Torrez Jr. Primary or Secondary Insurance:Primary Medication: Zepbound 2.5 MG/0.5ML Subcutaneous Solution Auto-injector (Tirzepatide-Weight Managemen Reason for Request: required Pharmacy and phone number: [facility] #[id number] Rx plan and phone number: Melodigram part d [phone] Is this a new medication for the patient? Yes What alternative medications does the pharmacy have in stock?: n/a Thank you for your assistance Hannah Bryant Vegetable Worker II [facility] ([facility]) 05/25/2023,10:57 AM documented in this encounter Plan of Treatment Upcoming Encounters Date Type Department Care Team (Late st Contact Info) Description 03/06/2024 5:20 PM EDT Office Visit [facility] [address] [place] [address] [address] Ranjan Adam, [address] [place] [address] 03/26/2024 10:20 AM EST Office Visit [facility] [address] [place] [address] Mariza Garza PA-C [address] [place] [address] [place] [address] 08/25/2024 11:40 AM EDT Office Visit [facility] [address] [place] [address] Ranjan Adam, [address] [place] [address] Scheduled Procedures Name Priority Associated Diagnoses Date/Ti me COLONOSCOPY FLEXIBLE PROXIMAL DIAGNOSTIC Recall History of colon polyps Health Maintenance Due Date Last Done Comments DTaP,Tdap,and Td Vaccines (2 - Td or Tdap) 02/08/2021 02/08/2011, 05/13/2003 COVID-19 Vaccine (4 - season) 2023 03/07/2021, 07/05/2020, 05/31/2020 Depression Screening 08/18/2023 08/17/2022 GFR 05/24/2024 05/24/2023, 08/05, 10/17/2021, Additional history exists HbA1c 05/24/2024 05/24/2023, 08/05, 10/17/2021, Additional history exists COLONOSCOPY-EVERY 5 YRS AGES 18-100 10/21/2024 10/22/2019, 10/22/2019, 07/07/2016, Additional history exists Albumin/Creatinine Ratio 05/24/20262 024, 08/22/2022, 09/08/2020, Additional history exists Lipid [...] filedocumented as of this encounter Care Teams Materials Coordinator Relationship Specialty Start Date End Date Ranjan Adam DO [address] [place] [address] PCP - General Family Medicine 07/02/19 documented as of this encounter
--- OUTSIDE RECORDS SUMMARY | 2023-08-25 12:26 | External Medical Summary | Summary of Care ---
Author Name Unknown Organization [facility] Address [address] [facility] [place] [address] Phone [phone] Care Team Providers Care Greenhouse Instructor Name Role Phone Ranjan Adam DO Primary Care Provider Reason for Visit * Reason Onset Date Comments Medication Pre-auth 05/25/2023 Zepbound 2.5 MG/0.5ML Subcutaneous Solution Auto-injector (Tirzepatide-Weight Managemen Status Check 05/25/2023 Encounter Details Date Type Department Care Team (Late st Contact Info) Description 05/25/2023 Telephone Family Practice [facility] [address] [place] [address] Ranjan Adam, [address] [place] [address] Medication Pre-auth (Zepbound 2.5 MG/0.5ML... Allergies Active Allergy Reactions Criticality Noted Date Comments Clavulanic Acid 04/14/2004 diarrhea & indigestion Felodipine Edema Other,Muscle pain 11/05/2012 Leg and thigh pain Pantoprazole Diarrhea Medium 06/09/2020 documented as of this encounter (statuses as of 06/05/2023) Medications Medication Sig Dispensed Refills Start Date [...] the skin once a week. 3 mL 3 05/24/2023 4 Discontinue d(Formulary /Cost) documented as of this encounter (statuses as of 06/05/2023) Active Problems Problem Noted Date Diagnosed Date [...] as of this encounter (statuses as of 06/05/2023) Resolved Problems Problem Noted Date Diagnosed Date [...] as of this encounter (statuses as of 06/05/2023) Immunizations Name Administration Dates Next Due COVID-19 [...] encounter Miscellaneous Notes * Telephone Encounter - Yecenia Vuong LPN - 06/05/2023 2:03 PM EST See new my G message * Telephone Encounter - Lucille Juarez LPN - 06/05/2023 12:31 PM EST Sent MyG to patient. * Telephone Encounter - Ranjan Adam DO - 06/04/2023 1:21 PM EST I would advise patient initiating metformin to help with weight loss and blood sugar in the meantime - then allowing [employer] to do their best to get approval for patient through their means - I don't think there is anything further we can do to get approval\ If patient is willing - would initiate 750mg ER metformin every evening * Telephone Encounter - Chelsea Armando CPhT - 06/04/2023 10:24 AM EST Pt calling to check on status of the PA for Zepbound. Caller states he needs this medication for his health not necessarily for weight loss. Pt would like a call back to discuss if possible regardingwhat can be done next, an appeal if possible. Caller can be reached at [phone]. Thank you, Breanna Armando Pattern Hanger I [facility] ([facility]) (Formerly Telepharmacy) 06/04/2023,10:24 AM * Addendum Note - Ciaran Michael [facility] - 06/01/2023 3:51 PM ESTAddended by: CIARAN [...] wish to modify therapy. Thank you, Ciaran Michael PharmD, TONG Clinical Pharmacist [facility] ([facility]) (formerly Telepharmacy) 06/01/23 3:50 PM [phone] * Telephone Encounter - Evin Delgado CPhT - 06/01/2023 1:28 PM EST Checked status of prior authorization for Zepbound through Telephone. Routed high priority to refill call center pharmacist pool due to denial. Denial reason: weight loss medications excluded Thank [facility], [facility] Adult Caregiver III [facility] ([facility]) (formerly Telepharmacy) 06/01/2023, 1:28 PM * Telephone Encounter - Evin Delgado CPhT - 05/31/2023 9:45 AM EST Checked status of prior authorization for Zepbound through CM. Awaiting response from insurance. Assistant To The Director will review again. Reminder: Pharmacist requests prior auth be sent back if no response by 06/01. Thank you, [facility]) Adult Caregiver III [facility] ([facility]) (formerly Telepharmacy) 05/31/2023, 9:45 AM * Telephone Encounter - Viry Reed PHARM Tech - 05/31/2023 9:00 AM EST Emeka calling to check on status of zepbound. Advised still in process per above. Caller can be reached at [phone]. Thank You, Viry Reed CPhT Adult Caregiver II [facility] ([facility]) (Formerly [...] to allow processing time Thank you, [facility]) Adult Caregiver III [facility] ([facility]) (formerly Telepharmacy) 05/30/2023, 9:58 AM * Telephone Encounter - Mari Keith wax blender - 05/29/2023 11:42 AM EST Submitted information in previous note via CMM ([place]: [id number]).. Awaiting payer response. We will follow-up with insurance starting 05/30. Per [facility] request, if no decision is received from insurance by 05/31, we will route back to the [facility] after clarifying with the pharmacy that the claim is still not processing. Thanks, Mari Keith Adult Caregiver III [facility] ([facility]) 05/29/2023,11:42 AM * Telephone Encounter - Anat Rojas [facility] - 05/28/2023 3:53 PM EST Please submit [...] upon this and route back to the [facility] if no decision is made by the insurance by 06/04, after clarifying with the pharmacy that the claim is still not processing. If PA is denied, please also route back to [facility] pool. Thank you, Anat Rojas, Piedad Clinical Pharmacist [facility] ([facility]) 05/28/23 3:53 PM [phone] * Telephone Encounter - Hannah Bryant PHARM Tech - 05/25/2023 10:57 AM EST Patient calling to inform doctor that the patient's insurance will not pay for this medication without a completed prior authorization. Did confirm this information with the pharmacy. Pt's current insurance information is as follows: Patient name: Emeka Torrez JrHeather ID number: [id number] BIN number: [id number] PCN number: [id number] Group number: [id number] Subscriber name: Emeka Torrez JrHeather Primary or Secondary Insurance:Primary Medication: Zepbound 2.5 MG/0.5ML Subcutaneous Solution Auto-injector (Tirzepatide-Weight Managemen Reason for Request: required Pharmacy and phone number: [id number] [address] [place] [address]- [place] Rx plan and phone number: medcare part d [phone] Is this a new medication for the patient? Yes What alternative medications does the pharmacy have in stock?: n/a Thank you for your assistance Hannah Bryant Adult Caregiver II [facility] ([facility]) (Formerly Telepharmacy) 05/25/2023,10:57 AM documented in this encounter Plan of Treatment Upcoming Encounters Date Type Department Care Team (Late st Contact Info) Description 03/06/2024 5:20 PM EDT Office Visit [facility] [address] [place] [address] Ranjan Adam, [address] [place] [address] 03/26/2024 10:20 AM EST Office Visit Dermatology [address] [place] [address] Mariza Garza PA-C [address] [place] [address] [place] [address] 08/25/2024 11:40 AM EDT Office Visit [facility] [address] [place] [address] Ranjan Adam DO [address] [place] [address] Scheduled Procedures Name Priority Associated Diagnoses Date/Ti me COLONOSCOPY FLEXIBLE PROXIMAL DIAGNOSTIC Recall History of colon polyps Health Maintenance Due Date Last Done Comments DTaP,Tdap,and Td Vaccines (2 - Td or Tdap) 02/08/2021 02/08/2011, 05/13/2003 COVID-19 Vaccine (4 - 2022- season) 2023 03/07/2021, 07/05/2020, 05/31/2020 Depression Screening [...] filedocumented as of this encounter Care Teams Greenhouse Instructor Relationship Specialty Start Date End Date Ranjan Adam DO [facility] [address] [place] [address] PCP - General Family Medicine 07/02/19 documented as of this encounter
--- OUTSIDE RECORDS SUMMARY | 2023-08-25 12:26 | External Medical Summary | Summary of Care ---
Author Name Unknown Organization [facility] Address [address] [facility] [place] [address] Phone [phone] Care Team Providers Care Manufacturing Process Technician Name Role Phone Ranjan Adam DO Primary Care Provider Reason for Visit * Reason Onset Date Comments Medication Pre-auth 05/25/2023 Zepbound 2.5 MG/0.5ML Subcutaneous Solution Auto-injector (Tirzepatide-Weight Managemen Encounter Details Date Type Department Care Team (Late st Contact Info) Description 05/25/2023 Telephone Family Practice [facility] [address] [place] [address] Ranjan Adam DO [address] [place] [address] Medication Pre-auth (Zepbound 2.5 MG/0.5ML... Allergies Active Allergy Reactions Criticality Noted Date Comments Clavulanic Acid 04/14/2004 diarrhea & indigestion Felodipine Edema Other,Muscle pain 11/05/2012 Leg and thigh pain Pantoprazole Diarrhea Medium 06/09/2020 documented as of this encounter (statuses as of 05/31/2023) Medications Medication Sig Dispensed Refills Start Date [...] as of this encounter (statuses as of 05/31/2023) Active Problems Problem Noted Date Diagnosed Date [...] as of this encounter (statuses as of 05/31/2023) Resolved Problems Problem Noted Date Diagnosed Date [...] as of this encounter (statuses as of 05/31/2023) Immunizations Name Administration Dates Next Due COVID-19 [...] encounter Miscellaneous Notes * Telephone Encounter - Viry Reed PHARM Tech - 05/31/2023 9:00 AM EST Emeka calling to check on status of zepbound. Advised still in process per above. Caller can be reached at [phone]. Thank You, Viry Reed [facility] Line Crew Supervisor II [facility] ([facility]) (Formerly [...] allow processing time Thank you, Abdi Delgado ([facility]) Line Crew Supervisor III [facility] ([facility]) (formerly Telepharmacy) 05/30/2023, 9:58 AM * Telephone Encounter - Mari Keith PHARM Tech - 05/29/2023 11:42 AM EST Submitted information in previous note via CMM ([place]: [id number]).. Awaiting payer response. We will follow-up with insurance starting 05/30. Per [facility] request, if no decision is received from insurance by 05/31, we will route back to the [facility] after clarifying with the pharmacy that the claim is still not processing. Thanks, Mari Keith Line Crew Supervisor III [facility] ([facility]) 05/29/2023,11:42 AM * Telephone Encounter - Anat Rojas [facility] - 05/28/2023 3:53 PM EST Please [...] upon this and route back to the [facility] pool if no decision is made by the insurance by 06/04, after clarifying with the pharmacy that the claim is still not processing. If PA is denied, please also route back to [facility] pool. Thank you, Anat Rojas PharmD Clinical Pharmacist [facility] ([facility]) 05/28/23 3:53 PM [phone] * Telephone Encounter - Hannah Bryant PHARM Tech - 05/25/2023 10:57 AM EST Patient calling to inform doctor that the patient's insurance will not pay for this medication without a completed prior authorization. Did confirm this information with the pharmacy. Pt's current insurance information is as follows: Patient name: Emeka Torrez JrHeather ID number: [id number] BIN number: [id number] PCN number: [id number] Group number: [id number] Subscriber name: Emeka Torrez JrHeather Primary or Secondary Insurance:Primary Medication: Zepbound 2.5 MG/0.5ML Subcutaneous Solution Auto-injector (Tirzepatide-Weight Managemen Reason for Request: required Pharmacy and phone number: [id number] [address] [place] [address] Rx plan and phone number: medcare part d [phone] Is this a new medication for the patient? Yes What alternative medications does the pharmacy have in stock?: n/a Thank you for your assistance Hannah Bryant Line Crew Supervisor II [facility] ([facility]) (Formerly Telepharmacy) 05/25/2023,10:57 AM documented in this encounter Plan of Treatment Upcoming Encounters Date Type Department Care Team (Late st Contact Info) Description 03/06/2024 5:20 PM EDT Office Visit [facility] [address] [place] [address] Ranjan Adam, [address] [place] [address] 03/26/2024 10:20 AM EST Office Visit Dermatology [address] [place] [address] Mariza Garza PA-C [address] [place] [address] [place] [address] 08/25/2024 11:40 AM EDT Office Visit [facility] [address] [place] [address] Ranjan Adam DO [address] [place] [address] Scheduled Procedures Name Priority Associated Diagnoses Date/Ti [...] filedocumented as of this encounter Care Teams Manufacturing Process Technician Relationship Specialty Start Date End Date Ranjan Adam DO [address] [place] [address] PCP - General Family Medicine 07/02/19 documented as of this encounter
--- OUTSIDE RECORDS SUMMARY | 2023-08-25 12:26 | External Medical Summary | Summary of Care ---
Author Name Unknown Organization [facility] Address [address] [facility] [place] [address] Phone [phone] Care Team Providers Care Molded Goods Spot Picker Name Role Phone Jair Ranjan Leadilia Primary Care Provider Encounter Details Date Type Department Care Team (Late st Contact Info) Description 07/31/2023 Result Scan Unspecified Department <No scans attached> Allergies Active Allergy Reactions Criticality Noted Date Comments Clavulanic Acid 04/14/2004 diarrhea & indigestion Felodipine Edema Other,Muscle pain 11/05/2012 Leg and thigh pain Pantoprazole Diarrhea Medium 06/09/2020 documented as of this encounter (statuses as of 08/03/2023) Medications Medication Sig Dispensed Refills Start Date [...] as needed for Muscle spasms. 30 Tablet 3 05/24/2023 Active Albuterol Sulfate HFA 108 (90 Base) MCG/ACT Inhalation Aerosol SolutionIndications:P aroxysmal cough Inhale 2 Puffs by mouth every 6 hours as needed for Cough or Wheezing. 36 g 1 05/24/2023 Active Sildenafil Citrate 100 MG Oral TabletIndications:Ere ctile dysfunction due to diseases classified elsewhere Take 1 Tablet by mouth daily as needed for Erectile Dysfunction. 30 Tablet 3 05/24/2023 Active documented as of this encounter (statuses as of 08/03/2023) Active Problems Problem Noted Date Diagnosed Date [...] as of this encounter (statuses as of 08/03/2023) Resolved Problems Problem Noted Date Diagnosed Date [...] per HTN protocol #16. Mixed dyslipidemia 01/01/2002 12 9 Overview: Per Lipid Taxonomy. OBESITY, UNSPECIFIED 01/01/2002 010 Overview: Per Obesity Taxonomy OA (osteoarthritis) of knee 05/03/2018 Overview: rigth knee replacement documented as of this encounter (statuses as of 08/03/2023) Immunizations Name Administration Dates Next Due COVID-19 [...] Influenza, Trivalen t, Adjuvanted, 65+ yrs 05/18/2019 TDAP (age 11 and older)(Adacel) 02/08/2011 Varicella [...] on file documented as of this encounter Plan of Treatment Upcoming Encounters Date Type Department Care Team (Late st Contact Info) Description 09/05/2023 10:30 AM EDT Office Visit Cardiology, [facility] [address] [place] [address] Matty Parsons, [address] [place] [address] 03/06/2024 5:20 PM EDT Office Visit Family Practice [facility] [address] [place] [address] Ranjan Adam, DO [address] [place] [address] 03/26/2024 10:20 AM EST Office Visit Dermatology [address] [place] [address] Mariza Garza PA-C [address] [place] [address] [place] [address] 08/25/2024 11:40 AM EDT Office Visit [facility] [address] [place] [address] Ranjan Adam, [address] [place] [address] Scheduled Procedures Name Priority Associated Diagnoses Date/Ti [...] Not on filedocumented as of this encounter Procedures Procedure Name Priority Date/Time Associated Diagnosis Comments PROCEDURE SCANNED RESULT 07/31/2023 documented in this encounter Results * PROCEDURE SCANNED RESULT (07/31/2023) 07/31/2023 No Physician Data Unknown SURGERY documented in this encounter Care Teams Molded Goods Spot Picker Relationship Specialty Start Date End Date Ranjan Adam DO [address] [place] [address] PCP - General Family Medicine 07/02/19 documented as of this encounter
--- OUTSIDE RECORDS SUMMARY | 2023-08-25 12:26 | External Medical Summary | Summary of Care ---
Author Name Unknown Organization [facility] Address [address] [place] [address] Phone [phone] Care Team Providers Care Container Coordinator Name Role Phone Jair Ranjan Leadilia Primary Care Provider Reason for Visit * Reason Comments EMG Encounter Details Date Type Department Care Team (Late st Contact Info) Description 07/31/2023 11:00 AM EDT NeuroDiagnostic Study Neurophysiology, [facility] [address] [place] [address] Emeka Reina MD [address] [facility] [place] [address] Arrived Allergies Active Allergy Reactions Criticality Noted Date Comments Clavulanic Acid 04/14/2004 diarrhea & indigestion Felodipine Edema Other,Muscle pain 11/05/2012 Leg and thigh pain Pantoprazole Diarrhea Medium 06/09/2020 documented as of this encounter (statuses as of 07/31/2023) Medications Medication Sig Dispensed Refills Start Date [...] as of this encounter (statuses as of 07/31/2023) Active Problems Problem Noted Date Diagnosed Date [...] as of this encounter (statuses as of 07/31/2023) Resolved Problems Problem Noted Date Diagnosed Date [...] as of this encounter (statuses as of 07/31/2023) Immunizations Name Administration Dates Next Due COVID-19 [...] on file documented as of this encounter Progress Notes * Emeka Reina MD - 07/31/2023 11:38 AM EDT The current study is done to evaluate 20 years of right antecubital fossa paresthesias and pain localized of very circumscribed area with onset possibly post traumatic in nature The study is normal with the exception of a mild prolongation right median distal sensory latencieswhich likely in this setting represents a residual from the prior carpal tunnel decompression 7 years ago rather than a recurrent carpal tunnel syndrome. There is certainly no evidence for polyneuropathy, a right ulnar or radial mononeuropathy, right brachial plexopathy or right C5 through T1 motorradiculopathy Emeka Reina MD documented in this encounter Plan of Treatment Upcoming Encounters Date Type Department Care Team (Late st Contact Info) Description 09/05/2023 10:30 AM EDT Office Visit Cardiology, [facility] [address] [place] [address] Matty Parsons, DO [address] [place] [address] 03/06/2024 5:20 PM EDT Office Visit [facility] [address] [place] [address] Ranjan Adam, DO [address] [place] [address] 03/26/2024 10:20 AM EST Office Visit Dermatology [address] [place] [address] Mariza Garza PA-C [address] [place] [address] [place] [address] 08/25/2024 11:40 AM EDT Office Visit [facility] [address] [place] [address] Ranjan Adam, [address] [place] [address] Scheduled Procedures Name Priority Associated Diagnoses Date/Ti [...] Not on filedocumented as of this encounter Visit Diagnoses Diagnosis Numbness and tingling of right arm- Primary Disturbance of skin sensation documented in this encounter Care Teams Container Coordinator Relationship Specialty Start Date End Date Ranjan Adam DO [address] [place] [address] PCP - General Family Medicine 07/02/19 documented as of this encounter
--- OUTSIDE RECORDS SUMMARY | 2023-08-25 12:26 | External Medical Summary | Summary of Care ---
Author Name Unknown Organization [facility] Address [address] [facility] [place] [address] Phone [phone] Care Team Providers Care Vehicle Fare Collector Name Role Phone Ranjan Adam DO Primary Care Provider Reason for Visit * Reason Onset Date Comments Medication Pre-auth 05/25/2023 Zepbound 2.5 MG/0.5ML Subcutaneous Solution Auto-injector (Tirzepatide-Weight Managemen Status Check 05/25/2023 Encounter Details Date Type Department Care Team (Late st Contact Info) Description 05/25/2023 Telephone Family Practice [facility] [address] [place] [address] Ranjan Adam, [address] [place] [address] Medication Pre-auth (Zepbound 2.5 MG/0.5ML... Allergies Active Allergy Reactions Criticality Noted Date Comments Clavulanic Acid 04/14/2004 diarrhea & indigestion Felodipine Edema Other,Muscle pain 11/05/2012 Leg and thigh pain Pantoprazole Diarrhea Medium 06/09/2020 documented as of this encounter (statuses as of 06/04/2023) Medications Medication Sig Dispensed Refills Start Date [...] as of this encounter (statuses as of 06/04/2023) Active Problems Problem Noted Date Diagnosed Date [...] as of this encounter (statuses as of 06/04/2023) Resolved Problems Problem Noted Date Diagnosed Date [...] as of this encounter (statuses as of 06/04/2023) Immunizations Name Administration Dates Next Due COVID-19 [...] encounter Miscellaneous Notes * Telephone Encounter - Chelsea Armando CPhT - 06/04/2023 10:24 AM EST Pt calling to check on status of the PA for Zepbound. Caller states he needs this medication for his health not necessarily for weight loss. Pt would like a call back to discuss if possible regardingwhat can be done next, an appeal if possible. Caller can be reached at [phone]. Thank you, Breanna Armando Supervisor Finish End I [facility] ([facility]) (Formerly Telepharmacy) 06/04/2023,10:24 AM * Addendum Note - Ciaran Michael [facility] - 06/01/2023 3:51 PM ESTAddended by: CIARAN MICHAEL on: 06/01/2023 03:51 PM Modules accepted: Orders * Telephone Encounter - Ciaran Michael [facility] - 06/01/2023 3:50 PM EST Zepbound not covered for patient; formulary exclusion. Pt's insurance does not cover any medicationfor weight loss. Ozempic and other GLP1s only covered for DM dx. Patient has nutrition referral pending. Please advise if you wish to modify therapy. Thank you, Leandro RicciD, TONG Clinical Pharmacist [facility] ([facility]) (formerly Telepharmacy) 06/01/23 3:50 PM [phone] * Telephone Encounter - Evin Delgado CPhT - 06/01/2023 1:28 PM EST Checked status of prior authorization for Zepbound through Telephone. Routed high priority to refill call center pharmacist pool due to denial. Denial reason: weight loss medications excluded Thank you, Abdi Delgado ([facility]) Store Detective III [facility] ([facility]) (formerly Telepharmacy) 06/01/2023, 1:28 PM * Telephone Encounter - Evin Delgado CPhT - 05/31/2023 9:45 AM EST Checked status of prior authorization for Zepbound through CMM. Awaiting response from insurance. Economics Faculty Member will review again. Reminder: Pharmacist requests prior auth be sent back if no response by 06/01. Thank you, Abdi Delgado ([facility]) Store Detective III [facility] ([facility]) (formerly Telepharmacy) 05/31/2023, 9:45 AM * Telephone Encounter - Viry Reed PHARM Tech - 05/31/2023 9:00 AM EST Emeka calling to check on status of zepbound. Advised still in process per above. Caller can be reached at [phone]. Thank You, Viry Reed CPhT Store Detective II [facility] ([facility]) (Formerly [...] allow processing time Thank you, Abdi Delgado ([facility]) Store Detective III [facility] ([facility]) (formerly Telepharmacy) 05/30/2023, 9:58 AM * Telephone Encounter - Mari Keith dean of boys - 05/29/2023 11:42 AM EST Submitted information in previous note via CM ([place]: [id number]).. Awaiting payer response. We will follow-up with insurance starting 05/30. Per [facility] request, if no decision is received from insurance by 05/31, we will route back to the [facility] after clarifying with the pharmacy that the claim is still not processing. Thanks, Mari Keith Store Detective III [facility] ([facility]) 05/29/2023,11:42 AM * Telephone Encounter - Anat Rojas [facility] - 05/28/2023 3:53 PM EST Please submit [...] upon this and route back to the [facility] pool if no decision is made by the insurance by 06/04, after clarifying with the pharmacy that the claim is still not processing. If PA is denied, please also route back to [facility] pool. Thank you, Anat Rojas, PharmD Clinical Pharmacist [facility] ([facility]) 05/28/23 3:53 PM [phone] * Telephone Encounter - Hananh Bryant PHARM Tech - 05/25/2023 10:57 AM EST Patient calling to inform doctor that the patient's insurance will not pay for this medication without a completed prior authorization. Did confirm this information with the pharmacy. Pt's current insurance information is as follows: Patient name: Emeka Torrez Jr. ID number: [id number] BIN number: [id number] PCN number: [id number] Group number: [id number] Subscriber name: Emeka Torrez Jr. Primary or Secondary Insurance:Primary Medication: Zepbound 2.5 MG/0.5ML Subcutaneous Solution Auto-injector (Tirzepatide-Weight Managemen Reason for Request: required Pharmacy and phone number: [facility] #[id number] Rx plan and phone number: medcare part d [phone] Is this a new medication for the patient? Yes What alternative medications does the pharmacy have in stock?: n/a Thank you for your assistance Hannah Bryant Store Detective II [facility] ([facility]) (Formerly Telepharmacy) 05/25/2023,10:57 AM documented in this encounter Plan of Treatment Upcoming Encounters Date Type Department Care Team (Late st Contact Info) Description 03/06/2024 5:20 PM EDT Office Visit Family [facility] [address] [place] [address] Ranjan Adam, [address] [place] [address] 03/26/2024 10:20 AM EST Office Visit Dermatology [address] [place] [address] Mariza Garza PA-C [address] [place] [address] [place] [address] 08/25/2024 11:40 AM EDT Office Visit Family [facility] [address] [place] [address] Ranjan Adam, [address] [place] [address] Scheduled Procedures Name Priority Associated Diagnoses Date/Ti me COLONOSCOPY FLEXIBLE PROXIMAL DIAGNOSTIC Recall History of colon polyps Health Maintenance Due Date Last Done Comments DTaP,Tdap,and Td Vaccines (2 - Td or Tdap) 02/08/2021 02/08/2011, 05/13/2003 COVID-19 Vaccine ( - 2022- season) 2023 03/07/2021, 07/05/2020, 05/31/2020 [...] filedocumented as of this encounter Care Teams Vehicle Fare Collector Relationship Specialty Start Date End Date Ranjan Adam DO [address] [place] [address] PCP - General Family Medicine 07/02/19 documented as of this encounter
--- OUTSIDE RECORDS SUMMARY | 2023-08-25 12:26 | External Medical Summary | Summary of Care ---
Author Name Unknown Organization [facility] Address [address] [facility] [place] [address] Phone [phone] Care Team Providers Care Instructional Aide Name Role Phone Ranjan Adam DO Primary Care Provider Reason for Visit * Reason Onset Date Comments Medication Pre-auth 05/25/2023 Zepbound 2.5 MG/0.5ML Subcutaneous Solution Auto-injector (Tirzepatide-Weight Managemen Encounter Details Date Type Department Care Team (Late st Contact Info) Description 05/25/2023 Telephone Family Practice [facility] [address] [place] [address] Ranjan [...] Zepbound through CMM. Awaiting response from insurance. Motel Manager will review again. Reminder: Pharmacist requests prior auth be sent back if no response by 06/01. Thank you, Abdi Delgado ([facility]) Movie Shot Cameraman III [facility] ([facility]) (formerly Telepharmacy) 05/31/2023, 9:45 AM * Telephone Encounter - Viry Reed PHARM Tech - 05/31/2023 9:00 AM EST Emeka calling to check on status of zepbound. Advised still in process per above. Caller can be reached at [phone]. Thank You, Viry Reed CPhT Movie Shot Cameraman II [facility] ([facility]) (Formerly [...] to allow processing time Thank you, [facility]di [facility] Movie Shot Cameraman III [facility] ([facility]) (formerly Telepharmacy) 05/30/2023, 9:58 AM * Telephone Encounter - Mari Keith m1 armor crewman - 05/29/2023 11:42 AM EST Submitted information in previous note via CM ([place]: [id number]).. Awaiting payer response. We will follow-up with insurance starting 05/30. Per [facility] request, if no decision is received from insurance by 05/31, we will route back to the [facility] after clarifying with the pharmacy that the claim is still not processing. Thanks, Mari Keith Movie Shot Cameraman III [facility] ([facility]) 05/29/2023,11:42 AM * Telephone Encounter - Anat Rojas [facility] - 05/28/2023 3:53 PM EST Please [...] upon this and route back to the [facility] pool if no decision is made by the insurance by 06/04, after clarifying with the pharmacy that the claim is still not processing. If PA is denied, please also route back to [facility] pool. Thank you, Anat Rojas PharmD Clinical Pharmacist [facility] ([facility]) 05/28/23 3:53 PM [phone] * Telephone Encounter - Hannah Bryant m1 armor crewman - 05/25/2023 10:57 AM EST Patient calling to inform doctor that the patient's insurance will not pay for this medication without a completed prior authorization. Did confirm this information with the pharmacy. Pt's current insurance information is as follows: Patient name: Emeka Torrez Jr. ID number: [id number] BIN number: [id number] PCN number: [id number] Group number: [id number] Subscriber name: Emeka Torrez Jr. Primary or Secondary Insurance:Primary Medication: Zepbound 2.5 MG/0.5ML Subcutaneous Solution Auto-injector (Tirzepatide-Weight Managemen Reason for Request: required Pharmacy and phone number: [facility] #[id number] Rx plan and phone number: [employer] part d [phone] Is this a new medication for the patient? Yes What alternative medications does the pharmacy have in stock?: n/a Thank you for your assistance Hannah Bryant Movie Shot Cameraman II [facility] ([facility]) (Formerly Telepharmacy) 05/25/2023,10:57 AM documented in this encounter Plan of Treatment Upcoming Encounters Date Type Department Care Team (Late st Contact Info) Description 03/06/2024 5:20 PM EDT Office Visit [facility] [address] [place] [address] Ranjan Adam, [address] [place] [address] 03/26/2024 10:20 AM EST Office Visit Dermatology [address] [place] [address] Mariza Garza PA-C [address] [place] [address] [place] [address] 08/25/2024 11:40 AM EDT Office Visit [facility] [address] [place] [address] Ranjan Adam, DO [address] [place] [address] Scheduled Procedures Name Priority Associated Diagnoses Date/Ti [...] filedocumented as of this encounter Care Teams Instructional Aide Relationship Specialty Start Date End Date Ranjan Adam DO [address] [place] [address] PCP - General Family Medicine 07/02/19 documented as of this encounter
--- OUTSIDE RECORDS SUMMARY | 2023-08-25 12:26 | External Medical Summary | Summary of Care ---
Author Name Unknown Organization [facility] Address [address] [facility] [place] [address] Phone [phone] Care Team Providers Care Shot Blaster Name Role Phone Ranjan Adam DO Primary Care Provider Reason for Visit * Reason Onset Date Comments Medication Pre-auth 05/25/2023 Zepbound 2.5 MG/0.5ML Subcutaneous Solution Auto-injector (Tirzepatide-Weight Managemen Status Check 05/25/2023 Encounter Details Date Type Department Care Team (Late st Contact Info) Description 05/25/2023 Telephone Family Practice [facility] [address] [place] [address] Ranjan Adam, [address] [place] [address] Medication Pre-auth (Zepbound 2.5 MG/0.5ML... Allergies Active [...] encounter Miscellaneous Notes * Telephone Encounter - Lucille Juraez LPN - 06/05/2023 12:31 PM EST Sent [...] if possible. Caller can be reached at [phone]. Thank you, Breanna Armando Rand Tacker I [facility] ([facility]) (Formerly Telepharmacy) 06/04/2023,10:24 AM * Addendum Note - Ciaran Michael RPh - 06/01/2023 3:51 PM ESTAddended by: CIARAN MICHAEL on: 06/01/2023 03:51 PM Modules accepted: Orders * Telephone Encounter - Ciaran Michael [facility] - 06/01/2023 3:50 PM EST Zepbound not covered for patient; formulary exclusion. Pt's insurance does not cover any medicationfor weight loss. Ozempic and other GLP1s only covered for DM dx. Patient has nutrition referral pending. Please advise if you wish to modify therapy. Thank you, Ciaran Michael PharmD, TONG Clinical Pharmacist [facility] ([facility]) (formerly Telepharmacy) 06/01/23 3:50 PM [phone] * Telephone Encounter - Evin Delgado CPhT - 06/01/2023 1:28 PM EST Checked status of prior authorization for Zepbound through Telephone. Routed high priority to refill call center pharmacist pool due to denial. Denial reason: weight loss medications excluded Thank you, [facility]) Butadiene Converter Helper III [facility] ([facility]) (formerly Telepharmacy) 06/01/2023, 1:28 PM * Telephone Encounter - Evin Delgado CPhT - 05/31/2023 9:45 AM EST Checked status of prior authorization for Zepbound through CM. Awaiting response from insurance. Child Health Associate will review again. Reminder: Pharmacist requests prior auth be sent back if no response by 06/01. Thank you, Abdi Gonzalez) Butadiene Converter Helper III [facility] ([facility]) (formerly Telepharmacy) 05/31/2023, 9:45 AM * Telephone Encounter - Viry Reed PHARM Tech - 05/31/2023 9:00 AM EST Emeka calling to check on status of zepbound. Advised still in process per above. Caller can be reached at [phone]. Thank You, Viry Reed [facility] Butadiene Converter Helper II [facility] ([facility]) (Formerly [...] allow processing time Thank you, Abdi Delgado ([facility]) Butadiene Converter Helper III [facility] ([facility]) (formerly Telepharmacy) 05/30/2023, 9:58 AM * Telephone Encounter - Mari Keith employment coordinator - 05/29/2023 11:42 AM EST Submitted information in previous note via CMM ([place]: [id number]).. Awaiting payer response. We will follow-up with insurance starting 05/30. Per [facility] request, if no decision is received from insurance by 05/31, we will route back to the [facility] after clarifying with the pharmacy that the claim is still not processing. Thanks, Mari Keith Butadiene Converter Helper III [facility] ([facility]) 05/29/2023,11:42 AM * Telephone Encounter - Anat [...] upon this and route back to the [facility] if no decision is made by the insurance by 06/04, after clarifying with the pharmacy that the claim is still not processing. If PA is denied, please also route back to [facility]. Thank you, Anat Rojas PharmD Clinical Pharmacist [facility] ([facility]) 05/28/23 3:53 PM [phone] * Telephone Encounter - Hannah Bryant employment coordinator - 05/25/2023 10:57 AM EST Patient calling to inform doctor that the patient's insurance will not pay for this medication without a completed prior authorization. Did confirm this information with the pharmacy. Pt's current insurance information is as follows: Patient name: Emeka Torrez Jr. ID number: [id number] BIN number: [id number] PCN number: [id number] Group number: [id number] Subscriber name: Emeka Torrez Jr. Primary or Secondary Insurance:Primary Medication: Zepbound 2.5 MG/0.5ML Subcutaneous Solution Auto-injector (Tirzepatide-Weight Managemen Reason for Request: required Pharmacy and phone number: [facility] #[id number]- [place] Rx plan and phone number: [employer] part d [phone] Is this a new medication for the patient? Yes What alternative medications does the pharmacy have in stock?: n/a Thank you for your assistance Hannah Bryant Butadiene Converter Helper II [facility] ([facility]) (Formerly Telepharmacy) 05/25/2023,10:57 AM documented in this encounter Plan of Treatment Upcoming Encounters Date Type Department Care Team (Late st Contact Info) Description 03/06/2024 5:20 PM EDT Office Visit [facility] [address] [place] [address] Ranjan Adam, [address] [place] [address] 03/26/2024 10:20 AM EST Office Visit Dermatology [address] [place] [address] Mariza Garza PA-C [address] [place] [address] [place] [address] 08/25/2024 11:40 AM EDT Office Visit [facility] [address] [place] [address] Ranjan Adam, [address] [place] [address] Scheduled Procedures Name Priority Associated Diagnoses Date/Ti [...] filedocumented as of this encounter Care Teams Shot Blaster Relationship Specialty Start Date End Date Ranjan Adam DO [address] [place] [address] PCP - General Family Medicine 07/02/19 documented as of this encounter
--- OUTSIDE RECORDS SUMMARY | 2023-08-25 12:26 | External Medical Summary | Summary of Care ---
Author Name Unknown Organization [facility] Address [address] [facility] [place] [address] Phone [phone] Care Team Providers Care Jeeper Operator Name Role Phone Ranjan Adam DO Primary Care Provider Reason for Visit * Reason Onset Date Comments Medication Pre-auth 05/25/2023 Zepbound 2.5 MG/0.5ML Subcutaneous Solution Auto-injector (Tirzepatide-Weight Managemen Status Check 05/25/2023 Encounter Details Date Type Department Care Team (Late st Contact Info) Description 05/25/2023 Telephone Family Practice [facility] [address] [place] [address] Ranjan Adam, [address] [place] [address] Medication Pre-auth (Zepbound 2.5 MG/0.5ML... Allergies Active [...] encounter Miscellaneous Notes * Telephone Encounter - Ranjan Adam DO [...] if possible. Caller can be reached at [phone]. Thank you, Breanna Armando Pharmacy Operations Coordinator I [facility] ([facility]) (Formerly [facility]) 06/04/2023,10:24 AM * Addendum Note - Ciaran Michael RPh - 06/01/2023 3:51 PM ESTAddended by: CIARAN MICHAEL on: 06/01/2023 03:51 PM Modules accepted: Orders * Telephone Encounter - Ciaran Michael RPh - 06/01/2023 3:50 PM EST Zepbound not covered for patient; formulary exclusion. Pt's insurance does not cover any medicationfor weight loss. Ozempic and other GLP1s only covered for DM dx. Patient has nutrition referral pending. Please advise if you wish to modify therapy. Thank you, Ciaran Michael PharmD, TONG Clinical Pharmacist [facility] ([facility]) (formerly Telepharmacy) 06/01/23 3:50 PM [phone] * Telephone Encounter - Evin Delgado CPhT - 06/01/2023 1:28 PM EST Checked status of prior authorization for Zepbound through Telephone. Routed high priority to refill call center pharmacist pool due to denial. Denial reason: weight loss medications excluded Thank you, [facility]) Duplicating Machine Servicer III [facility] ([facility]) (formerly Telepharmacy) 06/01/2023, 1:28 PM * Telephone Encounter - Evin Delgado CPhT - 05/31/2023 9:45 AM EST Checked status of prior authorization for Zepbound through CMM. Awaiting response from insurance. Molding And Trim Installer will review again. Reminder: Pharmacist requests prior auth be sent back if no response by 06/01. Thank you, [facility]) Duplicating Machine Servicer III [facility] ([facility]) (formerly Telepharmacy) 05/31/2023, 9:45 AM * Telephone Encounter - Viry Reed PHARM Tech - 05/31/2023 9:00 AM EST Emeka calling to check on status of zepbound. Advised still in process per above. Caller can be reached at [phone]. Thank You, Viry Reed CPhT Duplicating Machine Servicer II [facility] ([facility]) (Formerly Telepharmacy) 05/31/2023, 9:00 AM * Telephone [...] allow processing time Thank you, Abdi Delgado ([facility]) Duplicating Machine Servicer III [facility] ([facility]) (formerly [facility]) 05/30/2023, 9:58 AM * Telephone Encounter - Mari Keith PHARM Tech - 05/29/2023 11:42 AM EST Submitted information in previous note via CM ([place]: [id number]).. Awaiting payer response. We will follow-up with insurance starting 05/30. Per [facility] request, if no decision is received from insurance by 05/31, we will route back to the [facility] after clarifying with the pharmacy that the claim is still not processing. Thanks, Mari Keith Duplicating Machine Servicer III [facility] ([facility]) 05/29/2023,11:42 AM * [facility] - [facility] - 05/28/2023 3:53 PM EST Please submit [...] and route back to the [facility] if no decision is made by the insurance by 06/04, after clarifying with the pharmacy that the claim is still not processing. If PA is denied, please also route back to [facility] pool. Thank you, Anat Rojas PharmD Clinical Pharmacist [facility] ([facility]) 05/28/23 3:53 PM [phone] * Telephone Encounter - Hannah Bryant PHARM Tech - 05/25/2023 10:57 AM EST Patient calling to inform doctor that the patient's insurance will not pay for this medication without a completed prior authorization. Did confirm this information with the pharmacy. Pt's current insurance information is as follows: Patient name: Emeka Torrez Jr. ID number: [id number] BIN number: [id number] PCN number: [id number] Group number: [id number] Subscriber name: Emeka Torrez Jr. Primary or Secondary Insurance:Primary Medication: Zepbound 2.5 MG/0.5ML Subcutaneous Solution Auto-injector (Tirzepatide-Weight Managemen Reason for Request: required Pharmacy and phone number: [id number] Rx plan and phone number: medcare part d [phone] Is this a new medication for the patient? Yes What alternative medications does the pharmacy have in stock?: n/a Thank you for your assistance Hannah Bryant Duplicating Machine Servicer II [facility] ([facility]) (Formerly Tele[facility]acy) 05/25/2023,10:57 AM documented in this encounter Plan of Treatment Upcoming Encounters Date Type Department Care Team (Late st Contact Info) Description 03/06/2024 5:20 PM EDT Office Visit [facility] [address] [place] [address] Ranjan Adam, [address] [place] [address] 03/26/2024 10:20 AM EST Office Visit Dermatology [address] [place] [address] Mariza Garza PA-C [address] [place] [address] [place] [address] 08/25/2024 11:40 AM EDT Office Visit [facility] [address] [place] [address] Ranjan Adam, [address] [place] [address] Scheduled Procedures Name Priority Associated Diagnoses Date/Ti [...] filedocumented as of this encounter Care Teams Jeeper Operator Relationship Specialty Start Date End Date Ranjan Adam DO [address] [place] [address] PCP - General Family Medicine 07/02/19 documented as of this encounter
--- OUTSIDE RECORDS SUMMARY | 2023-08-25 12:27 | External Medical Summary | Summary of Care ---
Author Name Unknown Organization [facility] Address [address] [facility] [place] [address] Phone [phone] Care Team Providers Care Security And Compliance Analyst Name Role Phone Adam Maggie Leadilia Primary Care Provider Reason for Visit * Reason Comments Follow Up 1 year for full skin exam, no new concerns Encounter Details Date Type Department Care Team (Late st Contact Info) Description 03/12/2023 9:40 AM EST Office Visit Dermatology [address] [place] [address] Jose Garza PA-C [address] [place] [address] [place] [address] Actinic keratosis*; H/O dysplastic nevus; Multiple nevi; Skin exam, screening for cancer; Seborrheic keratosis Allergies Active Allergy Reactions Criticality Noted Date Comments Clavulanic Acid 04/14/2004 diarrhea & indigestion Felodipine Edema Other,Muscle pain 11/05/2012 Leg and thigh pain Pantoprazole Diarrhea Medium 06/09/2020 documented as of this encounter (statuses as of 03/12/2023) Medications Medication Sig Dispensed Refills Start Date End Date Status VITAMIN D 1000 UNITS PO TABS one tablet daily 0 11/05/2012 Active Multiple Vitamins-Minerals (MULTIVITAMIN ADULTS 50+) TABSIndications:sheldon y Take by mouth. 0 Active Meloxicam 15 MG Oral Tablet (Mobic)Indications:B ack strain, initial encounter Take 1 Tab by mouth daily. for pain. 30 Tab 11 08/19/2020 Active Diclofenac Sodium 1 % Transdermal GelIndications:Gener alized osteoarthritis of multiple sites Place 4 g topically on the skin 2 times a day. To affected area as directed. 100 g 5 12/20/2020 Active Albuterol Sulfate HFA 108 (90 Base) MCG/ACT Inhalation Aerosol SolutionIndications: Paroxysmal cough Inhale 2 Puffs by mouth every 6 hours as needed for Cough or Wheezing. 36 g 1 04/25/2021 Active Additional Information Patient not taking.Reported on 08/17/2022 Cyclobenzaprine HCl 5 MG Oral Tablet (Flexeril)Indication s:Back strain, initial encounter Take by mouth 1 Tablet as needed in the morning AND 1 Tablet as needed at noon AND 1 Tablet as needed in the evening for Muscle spasms. 30 Tablet 0 11/01/2021 Active Omeprazole 20 MG Oral Capsule Delayed Release (PriLOSEC)Indication s:Esophageal dysphagia Take by mouth 1 Capsule in the morning. 1 hour before the first meal of the day. 30 Capsule 5 11/01/2021 Active Additional Information Patient not taking.Reported on 09/04/2022 Aspirin Low Dose 81 MG Oral Tablet Delayed Release (aspirin enteric coated)Indications:P rediabetes,HTN, goal below 130/80 take 1 tablet by mouth once daily 90 Tablet 3 12/19/2021 Active Sildenafil Citrate 100 MG Oral TabletIndications:Er ectile dysfunction due to diseases classified elsewhere Take 1 Tablet by mouth daily as needed for Erectile Dysfunction. 30 Tablet 3 08/17/2022 Active Losartan Potassium 100 MG Oral Tablet (Cozaar) take 1 tablet by mouth once daily 90 Tablet 3 08/22/2022 Active Ezetimibe 10 MG Oral Tablet (Zetia) Take 1 Tablet by mouth in the morning. 90 Tablet 3 11/01/2022 Active Fluorouracil 5 % External Cream (Efudex)Indications: Actinic keratosis Apply to forehead and scalp 2x daily for 3 weeks then send photos through My Chart at the end of the treatment. 40 g 0 03/12/2023 Active documented as of this encounter (statuses as of 03/12/2023) Active Problems Problem Noted Date Diagnosed Date [...] as of this encounter (statuses as of 03/12/2023) Resolved Problems Problem Noted Date Diagnosed Date [...] as of this encounter (statuses as of 03/12/2023) Immunizations Name Administration Dates Next Due COVID-19 mRNA, LNP-s, No Pre serve, 2-Dose Series (Moderna) 07/05/2020,05/31/2020 COVID-19, mRNA, LNP-s, PF, B ooster, 100mcg/0.5mg (Moderna) 03/07/2021 Pneumococcal Conjugate Vacc, 13 Valent (Prevnar) 05/24/2017 Pneumococcal Polysaccharide PPV23 (Pneumovax) 11/22/2018 SEASONAL INFLUENZA, PF, 6 M & Above, IM , (FLULAVAL or FLUZONE) 03/23/2020,05/03/2018,05/24/2017 Seasonal Influenza Virus Vac cine, Unspecified Formulation 05/18/2019 Seasonal Influenza, Split, I IV3, With Preserve, [...] on file documented as of this encounter Patient Instructions * Patient Instructions* Jose Garza PA-C - 03/12/2023 9:38 AM EST SUNSCREEN USE AND SUN PROTECTION: 1. The best protection is sun avoidance. Seek shade if you can, especially between 10am to 4pm (peak sun hours). 2. Use sunscreen with an SPF (Sun Protection Factor - the number on most sunscreen bottles) of 30 or more that protects from Ultraviolet A (UVA) and Ultraviolet B (UVB) wavelength light (strongly recommend SPF 50). This is referred to as broad spectrum sun protection because it protects from most wa velengths in both spectrums of UVA and UVB light. Unfortunately, even though the protection is broad it is not complete, therefore making sun avoidance the best protection. UVB and UVA have both beenimplicated in causing skin cancers. Older sunscreens only protected from UVB and sunscreens with added UVA protection should contain Titanium dioxide, Zinc oxide, or Avobenzone. Other oil free, non-comedogenic lotion with SPF 30 or greater is fine. 3. Use sun protection if outside for 15 minutes or more. Apply 20-30 minutes before going out and reapply every 1-2 hours. No sunscreen is truly water ''proof'' and it will wash away with sweat, swimming and rubbing. 4. Wear tightly woven, loose fitting (cooler) long sleeved clothing, UV-blocking sun glasses (eyes need protection as well) and wide-brimmed hatwear (no straw hats with holes because light still getsthrough). Strongly recommended *Neutrogena Pure and Free Baby SPF 60 (have separate face and body lotions) orCeraVe AM facial lotion (with SPF 30). If looking for non toxic alternatives-look for non-alvina particle zinc. Product examples; Think sport, Think baby, Florala, Tabbloo [employer], AlbEyepic, [place] baby. "Baby" products can be used for all ages. documented in this encounter Progress Notes * Jose Garza PA-C - 03/12/2023 9:34 AM EST SUBJECTIVE: History of Present Illness: Emeka Torrez is a 73 year old male seen today for follow up of lesion/full skin exam. Previous office visit: 03/22/2022 Last attempted treatments include: cryo to AKs Lesion on R forehead, bothersome and does itch, does pick lesion until bleeds. Desires removal. Meat Boner And Slicer Documentation Patient offered director biostatistics and declined. REVIEW OF SYSTEMS: SKIN: No other new or changing moles. HEME/LYMPH: No new or enlarging lumps or bumps. CONSTITUTIONAL: No nausea, vomiting, fevers, chills, diarrhea. No recent unintended weight loss, night sweats, appetite or malaise. RESP: negative MSK/EXT: Negative or as per HPI GI: negative CV: Negative or as per HPI Rest of systems are negative or as per HPI SKIN CANCER HX: Moderately atypical nevus (central upper back), mildly atypical nevus (R abdomen), actinic keratoses Reviewed, same day as visit, 0 [facility] Dermatology lab work(s)/pathology report(s) as well as those sent by referring provider prior to seeing pt. MEDICA TIONS: Current Outpatient Medications Medication Sig Dispense Refill VITAMIN D 1000 UNITS PO TABS one tablet daily Multiple Vitamins-Minerals (MULTIVITAMIN ADULTS 50+) TABS Take by mouth. Meloxicam 15 MG Oral Tablet (Mobic) Take 1 Tab by mouth daily. for pain. 30 Tab 11 Diclofenac Sodium 1 % Transdermal Gel Place 4 g topically on the skin 2 times a day. To affected area as directed. 100 g 5 Albuterol Sulfate HFA 108 (90 Base) MCG/ACT Inhalation Aerosol Solution Inhale 2 Puffs by mouth every 6 hours as needed for Cough or Wheezing. (Patient not taking: Reported on 01/02/2022) 36 g 1 Cyclobenzaprine HCl 5 MG Oral Tablet (Flexeril) Take by mouth 1 Tablet as needed in the morning AND1 Tablet as needed at noon AND 1 Tablet as needed in the evening for Muscle spasms. 30 Tablet 0 Omeprazole 20 MG Oral Capsule Delayed Release (PriLOSEC) Take by mouth 1 Capsule in the morning. 1 hour before the first meal of the day. (Patient not taking: Reported on 09/04/2022) 30 Capsule 5 Aspirin Low Dose 81 MG Oral Tablet Delayed Release (aspirin enteric coated) take 1 tablet by mouth once daily 90 Tablet 3 Sildenafil Citrate 100 MG Oral Tablet Take 1 Tablet by mouth daily as needed for Erectile Dysfunction. 30 Tablet 3 Losartan Potassium 100 MG Oral Tablet (Cozaar) take 1 tablet by mouth once daily 90 Tablet 3 Ezetimibe 10 MG Oral Tablet (Zetia) Take 1 Tablet by mouth in the morning. 90 Tablet 3 No current facility-administered medications for this visit. ALLERG IES: Pantoprazole, Clavulanic acid, and Felodipine OBJECT ESTHER: GEN: alert, no distress, appears oriented, pleasant, and cooperative. SKIN: Detailed exam of hair, face including lids and lips, neck, chest, abdomen, back, bilateral upper ext. (arm, hand, fingers), bilateral lower ext. (leg, foot, toes), palpation of scalp, fingernails, toenails, inguinal areas, groin (penis, scrotum and perineum), buttocks, and anus completed: 1A. R superior forehead-1.0x0.7cm brown smooth adherent plaque. 2B. R superior forehead-9x8mm brown adherent papule. 2. Scalp/trunk/arms (R forearm)/legs-Some sharply defined, variegated brown, waxy flat papules withvelvety to finely verrucous surfaces. 3. Scalp-Some 2-4mm pink scaly papules. 4. Trunk/bilat arms and legs-About 85 total; 2-5mm light and light-medium brown macules and very few soft papules, about 10 with slightly irregular borders and/or architecture. ASSESSMENT: 1A. ISKs on R superior and inferior forehead-Shave removals (x2) of the lesions noted above to remove and confirm diagnoses. The procedure, risks including but not limited to; (scarring, bleeding, infection, pain, and bruising), benefits, alternatives and expected outcomes were discussed with the patient, and verbal consent was obtained from pt. Time out called. Patient identified, procedure verified, site identified and verified. Patient and staff present in agreement. Area prepped with alcohol and anesthetized using 2cc of 0.5% lidocaine with epinephrine at 1:200,000 concentration. Shaves of the lesions were performed. 20% AlCl and bandaging applied. Specimens sent to pathology. Patient instructed in routine post-op care. 3. Seborrheic/Benign Keratosis(-es) on scalp/trunk/arms (R forearm)/legs-no tx needed, pt given reassurance and written education about diagnosis. 3. Actinic keratoses on scalp-Plan on field therapy over cryotherapy as treatment for lesions. Explained in office and pt given written sheet with information on medication, instructions on treatment, appropriate response to medication, and tips on symptom relief. Pt will send photos through My Chart at the end of therapy for post treatment instructions. 4. Nevi on trunk/bilat arms and legs-Approximately 10 atypical nevi but all uniform out of 85 total. None that are more atypical than the others that would need to be removed for pathologic confirmation, but would benefit from yearly skin checks to follow changes. Skin cancer brochure given and ABCDE's discussed with patient. Annual full body skin examination (unless I recommended otherwise), self-examination, and sun protection (SPF 30+ daily to sun exposed areas, with reapplication every 1-2 hours when out in sun for long periods of time) advised and discussed. Recommended sooner follow up for new or changing lesions. These changes include rapid enlargement, changes in color or shape or symptoms, bleeding, or other concerns. The common features and behavior of non-melanoma skin cancers (e.g. BCC/SCC) as well as the ABCDEs and ugly duckling features of melanoma were also reviewed. Patient alone today. Photo(s) of #1-4 taken, pt verbally consented to having photo(s) taken. Follow-up: 1 year for full skin exam Contact patient via arGEN-X Applicable photos (if any) and chart reviewed by Dr. Valeriano Saul. Presumed diagnoses, expected natural histories, and management options discussed with the patient at length. Questions were addressed and anticipatory guidance provided. They were instructed to contact me if additional questions, concerns, or problems develop in the interim. -There were no barriers to learning and no other pain was related to today's visit. The patient and/or person accompanying patient demonstrates understanding of the visit and treatment. Jose Garza PA-C 03/12/2023 9:34 AM Ref: JOSE GARZA[[id number]] [address] [place] [address] [place] [id number] (office) [phone] (fax) PCP: MAGGIE ADAM [address] [place] [address] [phone] documented in this encounter Nursing Notes * Ludmila Vazquez LPN - 03/12/2023 9:36 AM EST Patient identified by full name and date of . Chief Complaint Patient presents with Follow Up 1 year for full skin exam, no new concerns documented in this encounter Plan of Treatment Upcoming Encounters Date Type Department Care Team (Late st Contact Info) Description 03/15/2023 5:00 PM EST Office Visit [facility] [address] [place] [address] Maggie Adam, [address] [place] [address] 05/24/2023 10:00 AM EST Office Visit [facility] [address] [place] [address] Maggie Adam, [address] [place] [address] 03/26/2024 10:20 AM EST Office Visit Dermatology [address] [place] [address] Jose Garza PA-C [address] [place] [address] [place] [address] Pending Results Name Type Priority Associated Diagnoses Date /Time SURGICAL PATHOLOGY Pathology Routine Seborrheic keratosis 03/12/2023 10:05 AM EST Scheduled Procedures Name Priority Associated Diagnoses Date/Ti me COLONOSCOPY FLEXIBLE PROXIMAL DIAGNOSTIC Recall History of colon polyps Health Maintenance Due Date Last Done Comments DTaP,Tdap,and Td Vaccines (2 - Td or Tdap) 02/08/2021 02/08/2011, 05/13/2003 COVID-19 Vaccine (2022- season) 2023 03/07/2021, 07/05/2020, 05/31/2020 Influenza Vaccine (FLU shot) (#1) 2023 03/23/2020, 05/18/2019, 05/18/2019, Additional history exists Depression Screening 08/18/2023 08/17/2022 GFR 08/23/2023 08/22/2022, 10/05, 11/30/2020, Additional history exists HbA1c 08/23/2023 08/22/2022, 10/05, 09/08/2020, Additional history exists COLONOSCOPY-EVERY 5 YRS AGES 18-100 10/21/2024 10/22/2019, 10/22/2019, 07/07/2016, Additional history exists Albumin/Creatinine Ratio 08/22/2025 023, 09/08/2020, 06/02/2020, Additional history exists Lipid Panel 08/23/2027 08/22/2022, 0311/2021, 09/08/2020, Additional history exists Pneumococcal Vaccine: 65+ Years Completed 11/22/2018, 05/24/2017 COLONOSCOPY-EVERY 3 YRS AGES 18-100 Discontinued 10/22/2019, 10/22/2019, 07/07/2016, Additional history exists Zoster Vaccines Completed 10/25/2019, 05/07, 02/04/2015 GARDASIL-HPV IMMUNIZATION SERIES Aged Out No longer [...] as of this encounter Visit Diagnoses Diagnosis Actinic keratosis- Primary H/O dysplastic nevus Personal history of diseases of skin and subcutaneous tissue Multiple nevi Benign neoplasm of skin, site unspecified Skin exam, screening for cancer Screening for malignant neoplasm of the skin Seborrheic keratosis Other seborrheic keratosis documented in this encounter Care Teams Security And Compliance Analyst Relationship Specialty Start Date End Date Maggie Adam DO [address] [place] [address] PCP - General Family Medicine 07/02/19 documented as of this encounter
--- OUTSIDE RECORDS SUMMARY | 2023-08-25 12:27 | External Medical Summary ---
Author Name Unknown Address Unknown Organization [id number]:[facility] [place] [address] [place] [address] Laboratory Report Ordering Provider Test Date Status JORGE LUIS SERRANO 05/24/2023 10:58:35 Final Deficient: <20 ng/mL
Ins ufficient: 20-29 ng/mL
Recommended/Optimum:30-50 ng/mL

Vitamin D intoxication is rare. If suspicious of Vitamin D toxicity, evaluation of serum Calcium and PTH is recommended. Observation Date Value Abnormality Reference (Units ) Status 25-OH Vitamin D total 05/24/2023 10:58:35 32 >19 (ng/mL) Final Performing Location [facility] [place] [address] [place] [address]
--- OUTSIDE RECORDS SUMMARY | 2023-08-25 12:27 | External Medical Summary | Summary of Care ---
Author Name Unknown Organization [facility] Address [address] [facility] [place] [address] Phone [phone] Care Team Providers Care Facilities Painter Name Role Phone Ranjan Adam DO Primary Care Provider Reason for Visit * Reason Onset Date Comments Medication Pre-auth 05/25/2023 Zepbound 2.5 MG/0.5ML Subcutaneous Solution Auto-injector (Tirzepatide-Weight Managemen Encounter Details Date Type Department Care Team (Late st Contact Info) Description 05/25/2023 Telephone Family Practice [facility] [address] [place] [address] Ranjan Adam DO [address] [place] [address] Medication Pre-auth (Zepbound 2.5 MG/0.5ML... Allergies Active Allergy Reactions Criticality Noted Date Comments Clavulanic Acid 04/14/2004 diarrhea & indigestion Felodipine Edema Other,Muscle pain 11/05/2012 Leg and thigh pain Pantoprazole Diarrhea Medium 06/09/2020 documented as of this encounter (statuses as of 05/30/2023) Medications Medication Sig Dispensed Refills Start Date [...] as of this encounter (statuses as of 05/30/2023) Active Problems Problem Noted Date Diagnosed Date [...] as of this encounter (statuses as of 05/30/2023) Resolved Problems Problem Noted Date Diagnosed Date [...] as of this encounter (statuses as of 05/30/2023) Immunizations Name Administration Dates Next Due COVID-19 [...] allow processing time Thank you, Abdi Delgado ([facility]) Deaf Teacher III [facility] ([facility]) (formerly Telepharmacy) 05/30/2023, 9:58 AM * Telephone Encounter - Mari Keith diesel engine mechanic - 05/29/2023 11:42 AM EST Submitted information in previous note via CMM ([place]: [id number]).. Awaiting payer response. We will follow-up with insurance starting 05/30. Per [facility] request, if no decision is received from insurance by 05/31, we will route back to the [facility] after clarifying with the pharmacy that the claim is still not processing. Thanks, Mari Keith Deaf Teacher III [facility] ([facility]) 05/29/2023,11:42 AM * Telephone Encounter - Anat Rojas [facility] - 05/28/2023 3:53 PM EST Please submit [...] back to the [facility] if no decision is made by the insurance by 06/04, after clarifying with the pharmacy that the claim is still not processing. If PA is denied, please also route back to [facility] pool. Thank you, Anat Rojas PharmD Clinical Pharmacist [facility] ([facility]) 05/28/23 3:53 PM [phone] * Telephone Encounter - Hannah Bryant diesel engine mechanic - 05/25/2023 10:57 AM EST Patient calling to inform doctor that the patient's insurance will not pay for this medication without a completed prior authorization. Did confirm this information with the pharmacy. Pt's current insurance information is as follows: Patient name: Emeka Torrez Jr. ID number: [id number] BIN number: [id number] PCN number: [id number] Group number: [id number] Subscriber name: Emeka Torrez Jr. Primary or Secondary Insurance:Primary Medication: Zepbound 2.5 MG/0.5ML Subcutaneous Solution Auto-injector (Tirzepatide-Weight Managemen Reason for Request: required Pharmacy and phone number: [facility] #[id number] Rx plan and phone number: medcare part d [phone] Is this a new medication for the patient? Yes What alternative medications does the pharmacy have in stock?: n/a Thank you for your assistance Hannah Bryant Deaf Teacher II [facility] ([facility]) (Formerly Telepharmacy) 05/25/2023,10:57 AM documented in this encounter Plan of Treatment Upcoming Encounters Date Type Department Care Team (Late st Contact Info) Description 03/06/2024 5:20 PM EDT Office Visit [facility] [address] [place] [address] Ranjan Adam, [address] [place] [address] 03/26/2024 10:20 AM EST Office Visit Dermatology [address] [place] [address] Mariza Garza PA-C [address] [place] [address] [place] [address] 08/25/2024 11:40 AM EDT Office Visit [facility] [address] [place] [address] Ranjan Adam, [address] [place] [address] Scheduled Procedures Name Priority Associated Diagnoses Date/Ti [...] filedocumented as of this encounter Care Teams Facilities Painter Relationship Specialty Start Date End Date Ranjan Adam DO [address] [place] [address] PCP - General Family Medicine 07/02/19 documented as of this encounter
--- OUTSIDE RECORDS SUMMARY | 2023-08-25 12:27 | External Medical Summary ---
Author Name Unknown Address Unknown Organization K01:LABORATORY [facility] [place] - [address] [place] [address] Laboratory Report Ordering Provider Test Date Status KATE SINGH 05/24/2023 10:58:35 Final Observation Date Value Abnormality Reference (Units ) Status MYCODE SPECIMEN-SST 05/24/2023 10:58:35 Freezing of extracted DNA, whole blood and/or serum. Final Performing Location LABORATORY [facility] [place] - [address] [place] [address]
--- OUTSIDE RECORDS SUMMARY | 2023-08-25 12:27 | External Medical Summary | Summary of Care ---
Author Name Unknown Organization [facility] Address [address] [place] [address] Phone [phone] Care Team Providers Care Film Reproducer Name Role Phone Ranjan Adam DO Primary Care Provider Reason for Referral * Evaluate & Treat - Unlimited Visits (Within 3 days (urgent)) - Pending Review Specialty Diagnoses / Procedures Referred By Contac t Referred To Contact Sports Medicine / Orthopedics Diagnoses Strain of unspecified muscle, fascia and tendon at shoulder and upper arm level, right arm, initial encounter Ranjan Adam DO [address] [place] [address] Holland Garcia DO [address] [place] [address] Referral ID Status Reason Start Date Expiration Date Visits Requested Visits Authorized [id number] Pending Review Specialty Services Required 05/24/2023 999 [id number] Question Answer Referral Priority Within 3 days (urgent) Where should this appointment be scheduled? [facility] What body part is the patient being seen for? Arm/Elbow What condition is the patient being seen for? Sprain/Strain/Tear/Other Comments R arm biceps tendonopathy * Evaluate & Treat - Unlimited Visits (Within 10 days (routine)) - Pending Review Specialty Diagnoses / Procedures Referred By Contact Referred To Contact GI NUTRITION/IM / Gastroenterology Diagnoses Dyslipidemia, goal LDL below 100 Prediabetes Dyslipidemia Body mass index (BMI) of 40.0 to 44.9 in adult (HCC) Ranjan Adam DO [address] [place] [address] Referral ID Status Reason Start Date Expiration Date Visits Requested Visits Authorized [id number] Pending Review Specialty Services Required 05/24/[phone] Question Answer Referral Priority Within 10 days (routine) Where should this appointment be scheduled? [facility] For what condition is the patient being seen? Obesity Reason for Visit * Reason Comments Physical-Exam Pt states he is here for a physical, has multiple concerns today. Encounter Details Date Type Department Care Team (Latest Contact Info) Description 05/24/2023 10:00 AM EST [facility] Visit [facility] [address] [place] [address] Ranjan Adam DO [address] [place] [address] Dyslipidemia, goal LDL below 100*; Back strain, initial encounter; Paroxysmal cough; HTN, goal below 130/80; Lumbar degenerative disc disease; Prediabetes; Dyslipidemia; Combined arterial insufficiency and corporo-venous occlusive erectile dysfunction; Body mass index (BMI) of 40.0 to 44.9 in adult ([facility]); Vitamin D deficiency; Erectile dysfunction due to diseases classified elsewhere; Encounter for long-term (current) use of medications; Male hypogonadism; Strain of unspecified muscle, fascia and tendon at shoulder and upper arm level, right arm, initial encounter Allergies Active Allergy Reactions Criticality Noted Date Comments Clavulanic Acid 04/14/2004 diarrhea & indigestion Felodipine Edema Other,Muscle pain 11/05/2012 Leg and thigh pain Pantoprazole Diarrhea Medium 06/09/2020 documented as of this encounter (statuses as of 05/24/2023) Medications Medication Sig Dispensed Refills Start Date [...] Erectile Dysfunction. 30 Tablet 3 05/24/2023 Active Zepbound 2.5 MG/0.5ML Subcutaneous Solution Auto-injector (Tirzepatide-Weight Management) Inject 2.5 mg under the skin once a week. 3 mL 3 05/24/2023 Active Albuterol Sulfate HFA 108 (90 Base) MCG/ACT Inhalation Aerosol SolutionIndications :Paroxysmal cough Inhale 2 Puffs by mouth every 6 hours as needed for Cough or Wheezing. 36 g 1 04/25/2021 4 Discontinue d(Refill) Cyclobenzaprine HCl 5 MG Oral Tablet (Flexeril)Indicatio ns:Back strain, initial encounter Take by mouth 1 Tablet as needed in the morning AND 1 Tablet as needed at noon AND 1 Tablet as needed in the evening for Muscle spasms. 30 Tablet 0 11/01/2021 4 Discontinue d(Refill) Sildenafil Citrate 100 MG Oral TabletIndications:E rectile dysfunction due to diseases classified elsewhere Take 1 Tablet by mouth daily as needed for Erectile Dysfunction. 30 Tablet 3 08/17/2022 4 Discontinue d(Refill) Losartan Potassium 100 MG Oral Tablet (Cozaar) take 1 tablet by mouth once daily 90 Tablet 3 08/22/2022 4 Discontinue d(Refill) Ezetimibe 10 MG Oral Tablet (Zetia) Take 1 Tablet by mouth in the morning. 90 Tablet 3 11/01/2022 4 Discontinue d(Refill) Meloxicam 7.5 MG Oral Tablet (Mobic) Take 1 Tablet by mouth in the morning. 90 Tablet 3 03/13/2023 4 Discontinue d(Refill) documented as of this encounter (statuses as of 05/24/2023) Active Problems Problem Noted Date Diagnosed Date [...] as of this encounter (statuses as of 05/24/2023) Resolved Problems Problem Noted Date Diagnosed Date [...] as of this encounter (statuses as of 05/24/2023) Immunizations Name Administration Dates Next Due COVID-19 [...] Date Smoking Tobacco: Never Smokeless Tobacco: Never Tobacco Cessation:Counseling Given: Not Answered Alcohol Use Standard Drinks/Week Comments No 0 [...] on file documented as of this encounter Last Filed Vital Signs Vital Sign Reading Time Taken Comments Blood Pressure 134/84 05/24/2023 10:07 AM EST Pulse 71 05/24/2023 10:07 AM EST Temperature 36.1 C (97 F) 05/24/2023 10:07 AM EST Respiratory Rate 16 05/24/2023 10:07 AM EST Oxygen Saturation 93% 05/24/2023 10:07 AM EST Inhaled Oxygen Concentration - - Weight 133.4 kg (294 lb) 05/24/2023 10:07 AM EST Height 183.5 cm (6' 0.25") 05/24/2023 10:07 AM [facility] Body Mass Index 39.6 05/24/2023 10:07 AM EST documented in this encounter Progress Notes * Ranjan Adam, DO - 05/24/2023 10:04 AM EST Images from the original note were not included. Assessment and Plan Dyslipidemia, goal LDL below 100 - Ezetimibe 10 MG Oral Tablet (Zetia); Take 1 Tablet by mouth in the morning. - COMPREHENSIVE METABOLIC PANEL; Future - LIPID PANEL WITH DIRECT LDL IF TG IS HIGH; Future - GI NUTRITION REFERRAL OP Back strain, initial encounter - Cyclobenzaprine HCl 5 MG Oral Tablet (Flexeril); Take 1 Tablet by mouth 3 times a day as needed for Muscle spasms. Paroxysmal cough - Albuterol Sulfate HFA 108 (90 Base) MCG/ACT Inhalation Aerosol Solution; Inhale 2 Puffs by mouth every 6 hours as needed for Cough or Wheezing. HTN, goal below 130/80 - Losartan Potassium 100 MG Oral Tablet (Cozaar); Take 1 Tablet by mouth in the morning. - COMPREHENSIVE METABOLIC PANEL; Future - ALBUMIN / CREATININE RATIO, URINE; Future Lumbar degenerative disc disease - Meloxicam 7.5 MG Oral Tablet (Mobic); Take 1 Tablet by mouth in the morning. Prediabetes - HEMOGLOBIN A1C; Future - GI NUTRITION REFERRAL OP Dyslipidemia - GI NUTRITION REFERRAL OP Combined arterial insufficiency and corporo-venous occlusive erectile dysfunction Body mass index (BMI) of 40.0 to 44.9 in adult (HCC) Continues to struggle with weight loss And would benefit - GI NUTRITION REFERRAL OP Vitamin D deficiency - 25-HYDROXY VITAMIN D; Future Erectile dysfunction due to diseases classified elsewhere - Sildenafil Citrate 100 MG Oral Tablet; Take 1 Tablet by mouth daily as needed for Erectile Dysfunction. - PSA; Future Encounter for long-term (current) use of medications - CBC WITH WBC DIFFERENTIAL; Future - TSH WITH FREE T4 IF INDICATED; Future - MAGNESIUM; Future Male hypogonadism - TESTOSTERONE: TOTAL, FREE AND BIOAVAILABLE; Future Strain of unspecified muscle, fascia and tendon at shoulder and upper arm level, right arm, initialencounter Will see Dr Garcia for further evaluation of R arm tenderness/strain of biceps? - SPORTS MEDICINE REFERRAL OP History of Present Illness Emeka Torrez is a 73 year old male that presents for Physical-Exam (Pt states he is here for a physical, has multiple concerns today.) Presents today in f/u Needs refills and labs R arm bothering him And has for some time now Also wondering about weight loss medications Due to ongoing difficulty controlling weight Physical Exam Vitals: 05/24/23 1007 Temp: 36.1 C (97 F) Pulse: 71 Resp: 16 SpO2: 93% BP: 134/84 BMI: 39.6 Physical Exam Constitutional: Appearance: Normal appearance. HENT: Head: Normocephalic and atraumatic. Eyes: Extraocular Movements: Extraocular movements intact. Pupils: Pupils are equal, round, and reactive to light. Cardiovascular: Rate and Rhythm: Normal rate and regular rhythm. Pulmonary: Effort: Pulmonary effort is normal. Breath sounds: Normal breath sounds. Musculoskeletal: Comments: R arm strain and possible biceps tendonopathy Neurological: General: No focal deficit present. Mental Status: He is alert and oriented to person, place, and time. Psychiatric: Mood and Affect: Mood normal. Behavior: Behavior normal. Wrap-Up Follow-up: Return in about 6 months (around 11/22/2023). | Check-out note: Schedule ahead of time for his f/u visit Please set up with Dr Garcia at [facility] for sports medicine evaluation Time: Total time today was 41 minutes excluding any time spent in the performance of separately billed services. documented in this encounter Plan of Treatment Upcoming Encounters Date Type Department Care Team (Late st Contact Info) Description 03/06/2024 5:20 PM EDT Office Visit Family [facility] [address] [facility] [place] [address] Ranjan Adam DO [address] [place] [address] 03/26/2024 10:20 AM EST Office Visit Dermatology [address] [place] [address] Mariza Garza PA-C [address] [place] [address] [place] [address] 08/25/2024 11:40 AM EDT Office Visit Family [facility] [address] [place] [address] Ranjan Adam DO [address] [place] [address] Pending Results Name Type Priority Associated Diagnoses Date /Time CBC WITH WBC DIFFERENTIAL Lab Routine Encounter for long-term (current) use of medications 05/24/2023 10:58 AM EST COMPREHENSIVE METABOLIC PANEL Lab Routine Dyslipidemia, goal LDL below 100 HTN, goal below 130/80 05/24/2023 10:58 AM EST HEMOGLOBIN A1C Lab Routine Prediabetes 05/24/2023 10:58 AM EST ALBUMIN / CREATININE RATIO, URINE Lab Routine HTN, goal below 130/80 05/24/2023 11:00 AM EST LIPID PANEL WITH DIRECT LDL IF TG IS HIGH Lab Routine Dyslipidemia, goal LDL below 100 05/24/2023 10:58 AM EST PSA Lab Routine Erectile dysfunction due to diseases classified elsewhere 05/24/2023 10:58 AM EST TSH WITH FREE T4 IF INDICATED Lab Routine Encounter for long-term (current) use of medications 05/24/2023 10:58 AM EST MAGNESIUM Lab Routine Encounter for long-term (current) use of medications 05/24/2023 10:58 AM EST 25-HYDROXY VITAMIN D Lab Routine Vitamin D deficiency 05/24/2023 10:58 AM EST TESTOSTERONE: TOTAL, FREE AND BIOAVAILABLE Lab Routine Male hypogonadism 05/24/2023 10:58 AM EST Scheduled Orders Name Type Priority Associated Diagnoses Orde r Schedule CBC WITH WBC DIFFERENTIAL Lab Routine Encounter for long-term (current) use of medications Expected: 05/24/2023 (Approximate), Expires: 05/24/2024 COMPREHENSIVE METABOLIC PANEL Lab Routine Dyslipidemia, goal LDL below 100 HTN, goal below 130/80 Expected: 05/24/2023 (Approximate), Expires: 05/24/2024 HEMOGLOBIN A1C Lab Routine Prediabetes Expected: 05/24/2023 (Approximate), Expires: 05/24/2024 ALBUMIN / CREATININE RATIO, URINE Lab Routine HTN, goal below 130/80 Expected: 05/24/2023 (Approximate), Expires: 05/24/2024 LIPID PANEL WITH DIRECT LDL IF TG IS HIGH Lab Routine Dyslipidemia, goal LDL below 100 Expected: 05/24/2023, Expires: 05/24/2024 PSA Lab Routine Erectile dysfunction due to diseases classified elsewhere Expected: 05/24/2023 (Approximate), Expires: 05/23/2024 TSH WITH FREE T4 IF INDICATED Lab Routine Encounter for long-term (current) use of medications Expected: 05/24/2023 (Approximate), Expires: 05/23/2024 MAGNESIUM Lab Routine Encounter for long-term (current) use of medications Expected: 05/24/2023 (Approximate), Expires: 05/23/2024 25-HYDROXY VITAMIN D Lab Routine Vitamin D deficiency Expected: 05/24/2023 (Approximate), Expires: 05/23/2024 TESTOSTERONE: TOTAL, FREE AND BIOAVAILABLE Lab Routine Male hypogonadism Expected: 05/24/2023 (Approximate), Expires: 05/23/2024 Scheduled Procedures Name Priority Associated Diagnoses Date/Ti me COLONOSCOPY FLEXIBLE PROXIMAL DIAGNOSTIC Recall History of colon polyps Scheduled Referrals Name Type Priority Associated Diagnoses Orde r Schedule GI NUTRITION REFERRAL OP Referral Within 10 days (routine) Dyslipidemia, goal LDL below 100 Prediabetes Dyslipidemia Body mass index (BMI) of 40.0 to 44.9 in adult (HCC) Ordered: 05/24/2023 SPORTS MEDICINE REFERRAL OP Referral Within 3 days (urgent) Strain of unspecified muscle, fascia and tendon at shoulder and upper arm level, right arm, initial encounter Ordered: 05/24/2023 Health Maintenance Due Date Last Done Comments DTaP,Tdap,and Td Vaccines (2 - Td or Tdap) 02/08/2021 02/08/2011, 05/13/2003 COVID-19 Vaccine (4 - 2022-24 season) 2023 03/07/2021, 07/05/2020, 05/31/2020 Depression Screening 08/18/2023 08/17/2022 GFR 08/23/2023 08/22/2022, [...] as of this encounter Visit Diagnoses Diagnosis Dyslipidemia, goal LDL below 100- Primary Other and unspecified hyperlipidemia Back strain, initial encounter Paroxysmal cough HTN, goal below 130/80 Unspecified essential hypertension Lumbar degenerative disc disease Degeneration of lumbar or lumbosacral intervertebral disc Prediabetes Other abnormal glucose Dyslipidemia Other and unspecified hyperlipidemia 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 Body mass index (BMI) of 40.0 to 44.9 in adult (HCC) Vitamin D deficiency Unspecified vitamin D deficiency Erectile dysfunction due to diseases classified elsewhere Encounter for long-term (current) use of medications Encounter for long-term (current) use of other medications Male hypogonadism Other testicular hypofunction Strain of unspecified muscle, fascia and tendon at shoulder and upper arm level, right arm, initial encounter documented in this encounter Care Teams Film Reproducer Relationship Specialty Start Date End Date Ranjan Adam DO [address] [facility] [place] [address] PCP - General Family Medicine 07/02/19 documented as of this encounter
--- OUTSIDE RECORDS SUMMARY | 2023-08-25 12:27 | External Medical Summary | Summary of Care ---
Author Name Unknown Organization [facility] Address [address] [facility] [place] [address] Phone [phone] Care Team Providers Care Chief Diversity Officer Name Role Phone Ranjan Adam DO Primary Care Provider Reason for Visit * Reason Onset Date Comments Medication Pre-auth 05/25/2023 Zepbound 2.5 MG/0.5ML Subcutaneous Solution Auto-injector (Tirzepatide-Weight Managemen Encounter Details Date Type Department Care Team (Late st Contact Info) Description 05/25/2023 Telephone Family Practice [facility] [address] [place] [address] Ranjan Adam DO [address] [place] [address] Medication Pre-auth (Zepbound 2.5 MG/0.5ML... Allergies Active Allergy Reactions Criticality Noted Date Comments Clavulanic Acid 04/14/2004 diarrhea & indigestion Felodipine Edema Other,Muscle pain 11/05/2012 Leg and thigh pain Pantoprazole Diarrhea Medium 06/09/2020 documented as of this encounter (statuses as of 05/27/2023) Medications Medication Sig Dispensed Refills Start Date [...] as of this encounter (statuses as of 05/27/2023) Active Problems Problem Noted Date Diagnosed Date [...] as of this encounter (statuses as of 05/27/2023) Resolved Problems Problem Noted Date Diagnosed Date [...] as of this encounter (statuses as of 05/27/2023) Immunizations Name Administration Dates Next Due COVID-19 [...] encounter Miscellaneous Notes * Telephone Encounter - Hannah Bryant PHARM Tech - 05/25/2023 10:57 AM EST Patient calling to inform doctor that the patient's insurance will not pay for this medication without a completed prior authorization. Did confirm this information with the pharmacy. Pt's current insurance information is as follows: Patient name: Emeka Torrez Jr. ID number: [id number] BIN number: [id number] PCN number: [id number] Group number: [id number] Subscriber name: Emeka Torrez Jr. Primary or Secondary Insurance:Primary Medication: Zepbound 2.5 MG/0.5ML Subcutaneous Solution Auto-injector (Tirzepatide-Weight Managemen Reason for Request: required Pharmacy and phone number: [facility] #[id number] Rx plan and phone number: medcare part d [phone] Is this a new medication for the patient? Yes What alternative medications does the pharmacy have in stock?: n/a Thank you for your assistance Hannah Bryant Flower Planter II Centralized [facility] Pharmacy Services ([facility]PS) (Formerly Telepharmacy) 05/25/2023,10:57 AM documented in this encounter Plan of Treatment Upcoming Encounters Date Type Department Care Team (Late st Contact Info) Description 03/06/2024 5:20 PM EDT Office Visit Family Practice [facility] [address] [place] [address] Ranjan Adam, [address] [place] [address] 03/26/2024 10:20 AM EST Office Visit Dermatology [address] [place] [address] Mariza Garza PA-C [address] [place] [address] [place] [address] 08/25/2024 11:40 AM EDT Office Visit Family [facility] [address] [place] [address] Ranjan Adam DO [address] [place] [address] Scheduled Procedures Name Priority Associated Diagnoses Date/Ti me COLONOSCOPY FLEXIBLE PROXIMAL DIAGNOSTIC Recall History of colon polyps Health Maintenance Due Date Last Done Comments DTaP,Tdap,and Td Vaccines (2 - Td or Tdap) 02/08/2021 02/08/2011, 05/13/2003 COVID-19 Vaccine ( - season) 2023 03/07/2021, 07/05/2020, 05/31/2020 Depression [...] filedocumented as of this encounter Care Teams Chief Diversity Officer Relationship Specialty Start Date End Date Ranjan Adam DO [address] [place] [address] PCP - General Family Medicine 07/02/19 documented as of this encounter
--- OUTSIDE RECORDS SUMMARY | 2023-08-25 12:27 | External Medical Summary ---
Author Name Unknown Address Unknown Organization [id number]:[facility] [address] [place] [address] Laboratory Report Ordering Provider Test Date Status JORGE LUIS SERRANO 05/24/2023 10:58:35 Final Observation Date Value Abnormality Reference (Units ) Status BUN 05/24/2023 10:58:35 23 Above high normal 6-20 (mg/dL) Final Creatinine 05/24/2023 10:58:35 1.0 0.6-1.2 (mg/dL) Final Glomerular filtration rate/1.73 sq M.predicted [Volume Rate/Area] in Serum, Plasma or Blood by Creatinine-based formula (CKD-EPI) 05/24/2023 10:58:35 86 >=60 (mL/min) Final eGFR is calculated based on the CKD-EPI 2020 equation SODIUM 05/24/2023 10:58:35 141 135-146 (m mol/L) Final Potassium 05/24/2023 10:58:35 4.5 3.5-5.1 (m mol/L) Final Cl 05/24/2023 10:58:35 104 98-107 (mm ol/L) Final CO2 05/24/2023 10:58:35 25 22-32 (mmo l/L) Final Anion gap 05/24/2023 10:58:35 12 7-15 (mmol /L) Final Glucose 05/24/2023 10:58:35 115 70-120 (mg /dL) Final Albumin 05/24/2023 10:58:35 4.7 3.8-5.0 (g /dL) Final AST (Aspartate aminotransferase) 05/24/2023 10:58:35 23 10-50 (U/L) Final Alk Phos 05/24/2023 10:58:35 41 35-130 (U/ L) Final Bilirubin, Total 05/24/2023 10:58:35 0.7 <=1 .2 (mg/dL) Final Calcium 05/24/2023 10:58:35 9.5 8.4-10.2 ( mg/dL) Final Protein 05/24/2023 10:58:35 7.4 6.0-8.3 (g /dL) Final ALT (Alanine aminotransferase) 05/24/2023 10:58:35 33 10-50 (U/L) Final Performing Location [facility] [place] [address] [facility] [address]
--- OUTSIDE RECORDS SUMMARY | 2023-08-25 12:27 | External Medical Summary ---
Author Name Unknown Address Unknown Organization [id number]:[facility] [place] [address] [place] [address] Laboratory Report Ordering Provider Test Date Status JORGE LUIS SERRANO 05/24/2023 11:00:08 Final Normal: <30 mg/g creatinine< br/>High: 30-300 mg/g creatinine
Very High: >300 mg/g creatinine
Nephrotic: >2200 mg/g creatinine Observation Date Value Abnormality Reference (Units ) Status Albumin, Urine 05/24/2023 11:00:08 64.44 (mg/dL) Final Creatinine, Urine 05/24/2023 11:00:08 168 (mg/dL) Final Albumin/Creatinine [Mass Ratio] in Urine 05/24/2023 11:00:08 384 Above high normal <30 (mg/g Creat) Final Performing Location [facility] [place] [address] [place] [address]
--- OUTSIDE RECORDS SUMMARY | 2023-08-25 12:27 | External Medical Summary ---
Author Name Unknown Address Unknown Organization [id number]:[facility] [place] [address] [facility] [address] Laboratory Report Ordering Provider Test Date Status JORGE LUIS SERRANO 05/24/2023 10:58:35 Final Observation Date Value Abnormality Reference (Units ) Status WBC, Total 05/24/2023 10:58:35 6.09 4.00-10.80 (K/uL) Final RBC 05/24/2023 10:58:35 5.52 4.50-5.25 (M/uL) Final Hemoglobin 05/24/2023 10:58:35 16.5 14.0-16.8 (g/dL) Final HCT 05/24/2023 10:58:35 51.8 Above high normal 40.0-48.4 (%) Final MCV 05/24/2023 10:58:35 93.8 82.0-99.5 (fL) Final MCH 05/24/2023 10:58:35 29.9 27.0-34.0 (pg) Final MCHC 05/24/2023 10:58:35 31.9 32.0-36.0 (g/dL) Final RDW 05/24/2023 10:58:35 12.7 11.5-15.5 (%) Final Platelets 05/24/2023 10:58:35 234 140-400 (K/uL) Final MPV 05/24/2023 10:58:35 10.0 6.6-11.1 (fL) Final Nucleated erythrocytes/100 leukocytes [Ratio] in Blood by Automated count 05/24/2023 10:58:35 0 <=0 (/100 WBCs) Final Performing Location [facility] [place] [address] [facility] [address]
--- OUTSIDE RECORDS SUMMARY | 2023-08-25 12:27 | External Medical Summary | Summary of Care ---
Author Name Unknown Organization [facility] Address [address] [facility] [place] [address] Phone [phone] Care Team Providers Care Drapery And Upholstery Measurer Name Role Phone Ranjan Adam DO Primary Care Provider Reason for Visit * Reason Onset Date Comments Medication Pre-auth 05/25/2023 Zepbound 2.5 MG/0.5ML Subcutaneous Solution Auto-injector (Tirzepatide-Weight Managemen Encounter Details Date Type Department Care Team (Late st Contact Info) Description 05/25/2023 Telephone Family Practice [facility] [address] [place] [address] Ranjan Adam DO [address] [place] [address] Medication Pre-auth (Zepbound 2.5 MG/0.5ML... Allergies Active Allergy Reactions Criticality Noted Date Comments Clavulanic Acid 04/14/2004 diarrhea & indigestion Felodipine Edema Other,Muscle pain 11/05/2012 Leg and thigh pain Pantoprazole Diarrhea Medium 06/09/2020 documented as of this encounter (statuses as of 05/28/2023) Medications Medication Sig Dispensed Refills Start Date [...] as of this encounter (statuses as of 05/28/2023) Active Problems Problem Noted Date Diagnosed Date [...] as of this encounter (statuses as of 05/28/2023) Resolved Problems Problem Noted Date Diagnosed Date [...] as of this encounter (statuses as of 05/28/2023) Immunizations Name Administration Dates Next Due COVID-19 [...] encounter Miscellaneous Notes * Telephone Encounter - Anat Rojas [facility] - 05/28/2023 3:53 PM EST Please submit [...] this and route back to the [facility] pool if no decision is made by the insurance by 06/04, after clarifying with the pharmacy that the claim is still not processing. If PA is denied, please also route back to [facility]. Thank you, Anat Rojas, LeandroD Clinical Pharmacist [facility] ([facility]) 05/28/23 3:53 PM [phone] Electronically signed by Bob Anat Priscila, [facility] at 05/28/2023 3:55 PM EST * Telephone Encounter - Hannah Bryant PHARM Tech - 05/25/2023 10:57 AM EST Patient calling to inform doctor that the patient's insurance will not pay for this medication without a completed prior authorization. Did confirm this information with the pharmacy. Pt's current insurance information is as follows: Patient name: Emeka Torrez JrHeather ID number: [id number] BIN number: [id number] PCN number: [id number] Group number: [id number] Subscriber name: Emeka Torrez JrHeather Primary or Secondary Insurance:Primary Medication: Zepbound 2.5 MG/0.5ML Subcutaneous Solution Auto-injector (Tirzepatide-Weight Managemen Reason for Request: required Pharmacy and phone number: [id number] [address] [place] [address] Rx plan and phone number: medcare part d [phone] Is this a new medication for the patient? Yes What alternative medications does the pharmacy have in stock?: n/a Thank you for your assistance Hannah Bryant Reheater II [facility] ([facility]) (Formerly Telepharmacy) 05/25/2023,10:57 AM documented in this encounter Plan of Treatment Upcoming Encounters Date Type Department Care Team (Late st Contact Info) Description 03/06/2024 5:20 PM EDT Office Visit [facility] [address] [place] [address] Ranjan Adam DO [address] [place] [address] 03/26/2024 10:20 AM EST Office Visit Dermatology [address] [place] [address] Mariza Garza PA-C [address] [place] [address] [place] [address] 08/25/2024 11:40 AM EDT Office Visit [facility] [address] [place] [address] Ranjan Adam DO [address] [place] [address] Scheduled Procedures Name Priority Associated Diagnoses Date/Ti me COLONOSCOPY FLEXIBLE PROXIMAL DIAGNOSTIC Recall History of colon polyps Health Maintenance Due Date Last Done Comments DTaP,Tdap,and Td Vaccines (2 - Td or Tdap) 02/08/2021 02/08/2011, 05/13/2003 COVID-19 Vaccine (2022- season) 2023 03/07/2021, 07/05/2020, 05/31/2020 Depression Screening [...] filedocumented as of this encounter Care Teams Drapery And Upholstery Measurer Relationship Specialty Start Date End Date Ranjan Adam DO [address] [place] [address] PCP - General Family Medicine 07/02/19 documented as of this encounter
--- OUTSIDE RECORDS SUMMARY | 2023-08-25 12:27 | External Medical Summary | Summary of Care ---
Author Name Unknown Organization [facility] Address [address] [facility] [place] [address] Phone [phone] Care Team Providers Care Buggy Runner Name Role Phone Maggie Adam DO Primary Care Provider Reason for Visit * Reason Onset Date Comments Medication Refill 03/12/2023 Encounter Details Date Type Department Care Team (Late st Contact Info) Description 03/12/[address] [facility] [address] [place] [address] Mgagie Adam DO [address] [place] [address] Back strain, initial encounter Allergies Active Allergy Reactions Criticality Noted Date Comments Clavulanic Acid 04/14/2004 diarrhea & indigestion Felodipine Edema Other,Muscle pain 11/05/2012 Leg and thigh pain Pantoprazole Diarrhea Medium 06/09/2020 documented as of this encounter (statuses as of 03/13/2023) Medications Medication Sig Dispensed Refills Start Date [...] the treatment. 40 g 0 03/12/2023 Active Meloxicam 7.5 MG Oral Tablet (Mobic) Take 1 Tablet by mouth in the morning. 90 Tablet 3 03/13/2023 Active documented as of this encounter (statuses as of 03/13/2023) Active Problems Problem Noted Date Diagnosed Date [...] as of this encounter (statuses as of 03/13/2023) Resolved Problems Problem Noted Date Diagnosed Date [...] Taxonomy OA (osteoarthritis) of knee 05/03/2018 Overview: mckenzie knee replacement documented as of this encounter (statuses as of 03/13/2023) Immunizations Name Administration Dates Next Due COVID-19 [...] encounter Miscellaneous Notes * Telephone Encounter - Maggie Adam DO - 03/13/2023 4:19 PM EST Signed Prescriptions: Disp Refills Meloxicam 7.5 MG Oral Tablet (Mobic) 90 Tab*3 Sig: Take 1 Tablet by mouth in the morning. Authorizing Provider: MAGGIE ADAM Refused Prescriptions: Disp Refills Meloxicam 15 MG Oral Tablet 30 Tab* Sig: Take 1 Tablet by mouth in the morning. for pain.. Refused By: KRISTINA TORREZ Reason for Refusal: Dose needs clarification * [facility] 3:37 PM EST Pending Prescriptions: Disp Refills Meloxicam 7.5 MG Oral Tablet (Mobic) Sig: Take 1 Tablet by mouth in the morning. Refused Prescriptions: Disp Refills Meloxicam 15 MG Oral Tablet 30 Tab* Sig: Take 1 Tablet by mouth in the morning. for pain.. Refused By: KRISTINA TORREZ Reason for Refusal: Dose needs clarificatio n * Telephone Encounter - Kristina Torrez, [facility] - 03/13/2023 3:34 PM EST Meloxicam 15 mg last prescribed 08/19/2020. Per MyG, pt requesting 7.5 mg dose change - pended. Please review and advise regarding pt request, and issue Rx if med use appropriate. Thank you, Kristina Torrez, PharmD Clinical Pharmacist [facility] 03/13/23 3:35 PM [phone] documented in this encounter Plan of Treatment Upcoming Encounters Date Type Department Care Team (Late st Contact Info) Description 03/15/2023 5:00 PM EST Office Visit [facility] [address] [place] [address] Maggie Adam, DO [address] [place] [address] 05/24/2023 10:00 AM EST Office Visit [facility] [address] [place] [address] Maggie Adam, DO [address] [place] [address] 03/26/2024 10:20 AM EST Office Visit Dermatology [address] [place] [address] Mariza Garza PA-C [address] [place] [address] [place] [address] Scheduled Procedures Name Priority Associated Diagnoses Date/Ti me COLONOSCOPY FLEXIBLE PROXIMAL DIAGNOSTIC Recall History of colon polyps Health Maintenance Due Date Last Done Comments DTaP,Tdap,and Td Vaccines (2 - Td or Tdap) 02/08/2021 02/08/2011, 05/13/2003 COVID-19 Vaccine ( - season) 2023 03/07/2021, 07/05/2020, 05/31/2020 Influenza Vaccine (FLU shot) (#1) 2023 03/23/2020, 05/18/2019, 05/18/2019, Additional history exists Depression Screening 08/18/2023 08/17/2022 GFR 08/23/2023 08/22/2022, 10/05, 11/30/2020, Additional history exists HbA1c 08/23/2023 08/22/2022, 10/05, 09/08/2020, Additional history exists COLONOSCOPY-EVERY 5 YRS AGES 18-100 10/21/2024 10/22/2019, 10/22/2019, 07/07/2016, Additional history exists Albumin/Creatinine Ratio 08/22/2025 023, 09/08/2020, 06/02/2020, Additional history exists Lipid Panel 08/23/2027 08/22/2022, 11/2021, 09/08/2020, Additional history exists Pneumococcal Vaccine: 65+ [...] as of this encounter Visit Diagnoses Diagnosis Back strain, initial encounter documented in this encounter Care Teams Buggy Runner Relationship Specialty Start Date End Date Maggie Adam DO [address] [place] [address] PCP - General Family Medicine 07/02/19 documented as of this encounter
--- OUTSIDE RECORDS SUMMARY | 2023-08-25 12:27 | External Medical Summary ---
Author Name Unknown Address Unknown Organization K01:[facility] [place] [address] [facility] [place] [address] Laboratory Report Ordering Provider Test Date Status JORGE LUIS SERRANO 05/24/2023 10:58:35 Final Observation Date Value Abnormality Reference (Units ) Status Triglyceride 05/24/2023 10:58:35 64 <=174 ( mg/dL) Final Triglyceride Reference Range s (mg/dL):
<150 Acceptable
150-174 Borderline high
175-499 High
>=500 Very high Cholesterol 05/24/2023 10:58:35 158 <200 (mg /dL) Final Total Cholesterol Reference Ranges (mg/dL):
<200 Desirable
200-239 Borderline high
>=240 High HDL 05/24/2023 10:58:35 44 >39 (mg/dL ) Final HDL Cholesterol Reference Ra nges (mg/dL):
>=60 High (Desirable)
<50 Low (Undesirable) For Females
<40 Low (Undesirable) For Males NON-HDL CHOLESTEROL 05/24/2023 10:58:35 114 <=159 (mg/dL) Final Non-HDL Cholesterol Referenc e Range (mg/dL):
<100 Target level for high risk ASCVD patient
<130 Optimal for general population
130-159 Near optimal for general population
160-189 Borderline High
190-219 High
>=220 Very High LDL, (calculated) 05/24/2023 10:58:35 101 <= 129 (mg/dL) Final LDL Cholesterol Reference Ra nges (mg/dL):
<70 Target level for high risk ASCVD patient
<100 Optimal for general population
100-129 Near optimal for general population
130-159 Borderline high
160-189 High
>=190 Very high Performing Location [facility] [place] [address] [facility] [address]
--- OUTSIDE RECORDS SUMMARY | 2023-08-25 12:27 | External Medical Summary | Summary of Care ---
Author Name Unknown Organization [facility] Address [address] [place] [address] Phone [phone] Care Team Providers Care Water Control Supervisor Name Role Phone Zachariah Adamvor Reyadilia Primary Care Provider Reason for Referral * Medication Prior Authorization - Closed Specialty Diagnoses / Procedures Referred By Scout t Referred To Contact Diagnoses Viral URI with cough Karma Purdy MD [address] [place] [id number] Referral ID Status Reason Start Date Expiration Date Visits Re quested Visits Authorized [id number] Closed 999 999 Reason for Visit * Reason Comments Acute Encounter Details Date Type Department Care Team (Late st Contact Info) Description 04/27/2023 2:20 PM EST Telemedicine [address] [address] Karma Purdy MD [address] [place] [id number] Viral URI with cough* Allergies Active Allergy Reactions Criticality Noted Date Comments Clavulanic Acid 04/14/2004 diarrhea & indigestion Felodipine Edema Other,Muscle pain 11/05/2012 Leg and thigh pain Pantoprazole Diarrhea Medium 06/09/2020 documented as of this encounter (statuses as of 04/27/2023) Medications Medication Sig Dispensed Refills Start Date End Date Status VITAMIN D 1000 UNITS PO TABS one tablet daily 0 11/05/2012 Active Multiple Vitamins-Minerals (MULTIVITAMIN ADULTS 50+) TABSIndications:sheldon y Take by mouth. 0 Active Diclofenac Sodium 1 % Transdermal GelIndications:Gener [...] or Wheezing. 36 g 1 04/25/2021 Active Cyclobenzaprine HCl 5 MG Oral Tablet (Flexeril)Indication s:Back strain, initial encounter Take by mouth 1 Tablet as needed in the morning AND 1 Tablet as needed at noon AND 1 Tablet as needed in the evening for Muscle spasms. 30 Tablet 0 11/01/2021 Active Aspirin Low Dose 81 MG Oral [...] the morning. 90 Tablet 3 03/13/2023 Active guaiFENesin-Codeine 100-10 MG/5ML Oral Syrup (Robitussin AC)Indications:Viral URI with cough Take 5 mL by mouth every 4 hours as needed for Cough. 120 mL 0 04/27/2023 Active Meloxicam 15 MG Oral Tablet (Mobic)Indications:B ack strain, initial encounter Take 1 Tab by mouth daily. for pain. 30 Tab 11 08/19/2020 3 Discontinue d(Medicatio n List Clean Up) Omeprazole 20 MG Oral Capsule Delayed Release (PriLOSEC)Indication s:Esophageal dysphagia Take by mouth 1 Capsule in the morning. 1 hour before the first meal of the day. 30 Capsule 5 11/01/2021 3 Discontinue d(Medicatio n List Clean Up) Doxycycline Hyclate 100 MG Oral CapsuleIndications:T ick bite, unspecified site, initial encounter,Skin infection Take 1 Capsule by mouth in the morning and 1 Capsule before bedtime. Do all this for 7 days. 14 Capsule 0 02/20/2023 3 Discontinue d(Medicatio n List Clean Up) documented as of this encounter (statuses as of 04/27/2023) Active Problems Problem Noted Date Diagnosed Date [...] as of this encounter (statuses as of 04/27/2023) Resolved Problems Problem Noted Date Diagnosed Date [...] as of this encounter (statuses as of 04/27/2023) Immunizations Name Administration Dates Next Due COVID-19 mRNA, LNP-s, No Pre serve, 2-Dose Series (Moderna) 07/05/2020,05/31/2020 COVID-19, mRNA, LNP-s, PF, B ooster, 100mcg/0.5mg (Moderna) 03/07/2021 Pneumococcal Conjugate Vacc, 13 Valent (Prevnar) 05/24/2017 Pneumococcal Polysaccharide PPV23 (Pneumovax) 11/22/2018 Seasonal Influenza Virus Vac cine, Unspecified Formulation 05/18/2019 Seasonal Influenza, PF, 6 M & above, IM , (FluLaval or Fluzone) 03/23/2020,05/03/2018,05/24/2017 Seasonal Influenza, Split, I IV3, With Preserve, [...] as of this encounter Progress Notes * Karma Purdy MD - 04/27/2023 2:40 PM EST Images from the original note were not included. Nursing Notes: Meredith Gomez, TRUCK REPAIR SERVICE ESTIMATOR 04/27/23 1425 Signed Pt c/o cough x's 3 days - unable to sleep C/o runny nose, sinus congestion, post nasal drip. Denies any fever or chills. History of Present Illness Emeka Torrez Jr. is a 73 year old male that presents for Acute Notes he has a very severe cough, keeping him up at night Reports he hasn't slept for last couple of days Notes he had some sinus congestion and drainage, which has mostly resolved, but cough started two days ago Has tried over the counter medications, but still not sleeping at night Notes he had flu shot 3-4 days ago The cough is mostly dry and nonproductive Denies shortness of breath Reports Jasmina Franklin have not worked in past, the only hthink that helped in past that PCP prescribed was cough medication with codeine Physical Exam There were no vitals filed for this visit. Physical Exam Constitutional: General: He is not in acute distress. Appearance: Normal appearance. He is not ill-appearing. Eyes: Extraocular Movements: Extraocular movements intact. Pulmonary: Effort: No respiratory distress. Neurological: General: No focal deficit present. Mental Status: He is alert and oriented to person, place, and time. Psychiatric: Mood and Affect: Mood and affect normal. I have reviewed the following results: None Assessment and Plan Viral URI with cough Suspect cough secondary to virus. Return precautions reviewed, seek in person evaluation if shortness of breath develops - guaiFENesin-Codeine 100-10 MG/5ML Oral Syrup (Robitussin AC); Take 5 mL by mouth every 4 hours asneeded for Cough. Wrap-Up Follow Up: Return if symptoms worsen or fail to improve. Telemedicine: Patient location: HOME. I was in a hospital or clinic location. After connecting through televideo,patient was verified with two unique identifiers. Patient (or authorized legal textiles sales representative) was then informed that this was a Telemedicine visit and being conducted confidentially over secure lines. Methods to assure confidentiality were taken. Patient acknowledged consent and understanding of pr ivacy and security of the Telemedicine visit. The patient agreed to participate. documented in this encounter Nursing Notes * Meredith Gomez LPN - 04/27/2023 2:24 PM EST Pt c/o cough x's 3 days - unable to sleep C/o runny nose, sinus congestion, post nasal drip. Denies any fever or chills. documented in this encounter Plan of Treatment Upcoming Encounters Date Type Department Care Team (Late st Contact Info) Description 05/24/2023 10:00 AM EST Office Visit [facility] [address] [place] [address] Ranjan Adam DO [address] [place] [address] 03/26/2024 10:20 AM EST Office Visit Dermatology [address] [place] [address] Mariza Garza PA-C [address] [place] [address] [place] [address] Scheduled Procedures Name Priority Associated Diagnoses Date/Ti me COLONOSCOPY FLEXIBLE PROXIMAL DIAGNOSTIC Recall History of colon polyps Health Maintenance Due Date Last Done Comments DTaP,Tdap,and Td Vaccines (2 - Td or Tdap) 02/08/2021 02/08/2011, 05/13/2003 COVID-19 Vaccine (4 - season) 2023 03/07/2021, 07/05/2020, 05/31/2020 Influenza Vaccine (FLU shot) (#1) 2023 03/23/2020, 05/18/2019, 05/18/2019, Additional history exists Depression Screening 08/18/2023 08/17/2022 GFR 08/23/2023 08/22/2022, 10/05, 11/30/2020, Additional history exists HbA1c 08/23/2023 08/22/2022, 10/05, 09/08/2020, Additional history exists COLONOSCOPY-EVERY 5 YRS AGES 18-100 10/21/2024 10/22/2019, 10/22/2019, 07/07/2016, Additional history exists Albumin/Creatinine Ratio 08/22/2025 023, 09/08/2020, 06/02/2020, Additional history exists Lipid Panel 08/23/2027 08/22/2022, 03/11/2021, 09/08/2020, Additional history exists Pneumococcal Vaccine: 65+ [...] as of this encounter Visit Diagnoses Diagnosis Viral URI with cough- Primary Acute upper respiratory infections of unspecified site documented in this encounter Care Teams Water Control Supervisor Relationship Specialty Start Date End Date Ranjan Adam DO [address] [place] [address] PCP - General Family Medicine 07/02/19 documented as of this encounter
--- OUTSIDE RECORDS SUMMARY | 2023-08-25 12:27 | External Medical Summary ---
Author Name Unknown Address Unknown Organization K01:LABORATORY [facility] [place] - [address] [place] [address] [place] [address] Laboratory Report Ordering Provider Test Date Status JORGE LUIS SERRANO 05/24/2023 10:58:35 Final Observation Date Value Abnormality Reference (Units ) Status TSH 05/24/2023 10:58:35 1.07 0.27-4.20 (uIU/mL) Final Performing Location LABORATORY [facility] [place] [address] [place] [address]
--- OUTSIDE RECORDS SUMMARY | 2023-08-25 12:27 | External Medical Summary ---
Author Name Unknown Address Unknown Organization K01:LABOR[facility]ORY [facility] [place] - [address] [place] [address] Laboratory Report Ordering Provider Test Date Status KATE SINGH 05/24/2023 10:58:35 Final Observation Date Value Abnormality Reference (Units ) Status MYCODE SPECIMEN-SST 05/24/2023 10:58:35 Freezing of extracted DNA, whole blood and/or serum. Final Performing Location LABORATORY [facility] [place] - [address] [place] [address]
--- OUTSIDE RECORDS SUMMARY | 2023-08-25 12:27 | External Medical Summary ---
Author Name Unknown Address Unknown Organization K01:LABORATORY [facility] [place] - [address] [facility] [place] [address] Laboratory Report Ordering Provider Test Date Status JORGE LUIS SERRANO 05/24/2023 10:58:35 Final Observation Date Value Abnormality Reference (Units ) Status SYNC LEUKOCYTES IN BLOOD BY AUTOMATED COUNT 05/24/2023 10:58:35 6.09 4.00-10.80 (K/uL) Final Segs 05/24/2023 10:58:35 43.4 40.0-75.0 (%) Final Lymphs % 05/24/2023 10:58:35 44.2 Above high normal 18.0-42.0 (%) Final Monos 05/24/2023 10:58:35 8.0 1.0-11.0 (%) Final Eosinophils 05/24/2023 10:58:35 3.4 0.0-6.0 (%) Final Basos 05/24/2023 10:58:35 0.7 0.0-2.0 (%) Final Immature Granulocyte, Percent 05/24/2023 10:58:35 0.3 0.0-2.0 (%) Final Absolute Segs 05/24/2023 10:58:35 2.64 1.80-7.70 (K/uL) Final Lymphs, absolute 05/24/2023 10:58:35 2.69 1.00-4.80 (K/ul) Final Monos, Abs 05/24/2023 10:58:35 0.49 0.00-1.10 (K/uL) Final Eos, Abs 05/24/2023 10:58:35 0.21 0.00-0.70 (K/uL) Final Basos, Abs 05/24/2023 10:58:35 0.04 0.00-0.20 (K/uL) Final Immature Granulocytes, Number 05/24/2023 10:58:35 0.02 0.00-0.20 (K/uL) Final Performing Location LABORATORY [facility] [place] - [address] [facility] [address]
--- OUTSIDE RECORDS SUMMARY | 2023-08-25 12:27 | External Medical Summary | Summary of Care ---
Author Name Unknown Organization [facility] Address [address] [facility] [place] [address] Phone [phone] Care Team Providers Care Log Skidder Name Role Phone Ranjan Adam DO Primary Care Provider Reason for Visit * Reason Onset Date Comments Medication Pre-auth 05/25/2023 Zepbound 2.5 MG/0.5ML Subcutaneous Solution Auto-injector (Tirzepatide-Weight Managemen Encounter Details Date Type Department Care Team (Late st Contact Info) Description 05/25/2023 Telephone Family Practice [facility] [address] [place] [address] Ranjan Adam DO [address] [place] [address] Medication Pre-auth (Zepbound 2.5 MG/0.5ML... Allergies Active Allergy Reactions Criticality Noted Date Comments Clavulanic Acid 04/14/2004 diarrhea & indigestion Felodipine Edema Other,Muscle pain 11/05/2012 Leg and thigh pain Pantoprazole Diarrhea Medium 06/09/2020 documented as of this encounter (statuses as of 05/29/2023) Medications Medication Sig Dispensed Refills Start Date [...] as of this encounter (statuses as of 05/29/2023) Active Problems Problem Noted Date Diagnosed Date [...] as of this encounter (statuses as of 05/29/2023) Resolved Problems Problem Noted Date Diagnosed Date [...] as of this encounter (statuses as of 05/29/2023) Immunizations Name Administration Dates Next Due COVID-19 [...] encounter Miscellaneous Notes * Telephone Encounter - Mari Keith intake man - 05/29/2023 11:42 AM EST Submitted information in previous note via CMM ([place]: [id number]).. Awaiting payer response. We will follow-up with insurance starting 05/30. Per [facility] request, if no decision is received from insurance by 05/31, we will route back to the [facility] after clarifying with the pharmacy that the claim is still not processing. Thanks, Mari Keith Ripsaw Matcher III [facility] 05/29/2023,11:42 AM * Telephone Encounter - Anat Rojas, [facility] - 05/28/2023 3:53 PM EST [...] and route back to the [facility] pool if no decision is made by the insurance by 06/04, after clarifying with the pharmacy that the claim is still not processing. If PA is denied, please also route back to [facility] pool. Thank you, Anat Rojas, PharmDarron Clinical Pharmacist [facility]) 05/28/23 3:53 PM [phone] * Telephone Encounter - Hannah Bryant intake man - 05/25/2023 10:57 AM EST Patient calling to inform doctor that the patient's insurance will not pay for this medication without a completed prior authorization. Did confirm this information with the pharmacy. Pt's current insurance information is as follows: Patient name: Emeka Torrez Jr. ID number: [id number] BIN number: [id number] PCN number: [id number] Group number: [id number] Subscriber name: Emeka Torrez Jr. Primary or Secondary Insurance:Primary Medication: Zepbound 2.5 MG/0.5ML Subcutaneous Solution Auto-injector (Tirzepatide-Weight Managemen Reason for Request: required Pharmacy and phone number: [facility] #[id number] Rx plan and phone number: [employer] part d [phone] Is this a new medication for the patient? Yes What alternative medications does the pharmacy have in stock?: n/a Thank you for your assistance Hannah Bryant Ripsaw Matcher II [facility] ([facility]) 05/25/2023,10:57 AM documented in this encounter Plan of Treatment Upcoming Encounters Date Type Department Care Team (Late st Contact Info) Description 03/06/2024 5:20 PM EDT Office Visit [facility] [address] [place] [address] Ranjan Adam DO [address] [place] [address] 03/26/2024 10:20 AM EST Office Visit Dermatology [address] [place] [address] Mariza Garza PA-C [address] [place] [address] [place] [address] 08/25/2024 11:40 AM EDT Office Visit Family Practice [facility] [address] [place] [address] Ranjan Adam DO [address] [place] [address] Scheduled Procedures Name Priority Associated Diagnoses Date/Ti [...] filedocumented as of this encounter Care Teams Log Skidder Relationship Specialty Start Date End Date Ranjan Adam DO [address] [place] [address] PCP - General Family Medicine 07/02/19 documented as of this encounter
--- OUTSIDE RECORDS SUMMARY | 2023-08-25 12:27 | External Medical Summary ---
Author Name Unknown Address Unknown Organization K01:LAB[facility]ATORY [facility] - [address] [place] [address] [address] Laboratory Report Ordering Provider Test Date Status JORGE LUIS SERRANO 05/24/2023 10:58:35 Final Observation Date Value Abnormality Reference (Units ) Status Magnesium 05/24/2023 10:58:35 2.3 1.5-2.6 (m g/dL) Final Performing Location LABORATORY [facility] - [address] [place] [address]
--- OUTSIDE RECORDS SUMMARY | 2023-08-25 12:27 | External Medical Summary ---
Author Name Unknown Address Unknown Organization K01:[facility]ATORY [facility] [place] - [address] [facility] [address] Laboratory Report Ordering Provider Test Date Status JORGE LUIS SERRANO 05/24/2023 10:58:35 Final Observation Date Value Abnormality Reference (Units ) Status HbA1C 05/24/2023 10:58:35 6.1 Above high normal 4. 0-5.6 (%) Final The use of HbA1c to monitor glycemic status is based on normal hemoglobin and HbA composition. This test should not be used in patients with abnormal hemoglobin that affects the half life of the red blood cell or the in vivo glycation rates. Glucose, estimated average 05/24/2023 10:58:35 128 Above high normal <126 (mg/dL) Chaitanya pastor Performing Location LAB[facility]ATORY [facility] - [address] [facility] [address]
--- OUTSIDE RECORDS SUMMARY | 2023-08-25 12:27 | External Medical Summary | Summary of Care ---
Author Name Unknown Organization [facility] Address [address] [facility] [place] [address] Phone [phone] Care Team Providers Care Sliding Joint Maker Name Role Phone Adam Maggie Leadilia Primary Care Provider Reason for Visit * Reason Comments Follow Up 1 year for full skin exam, no new concerns Encounter Details Date Type Department Care Team (Late st Contact Info) Description 03/12/2023 9:40 AM EST Office Visit Dermatology [address] [place] [address] Jose Garza PA-C [address] [place] [address] [place] [address] Actinic keratosis*; H/O dysplastic nevus; Multiple nevi; [...] zinc. Product examples; Think sport, Think baby, Petrolia, Babo botanicals, [employer], [place] baby. "Baby" products can be used for all ages. documented in this encounter Progress Notes * Valeriano Saul MD - 03/13/2023 2:15 PM EST I have seen and examined the patient via teledermatology review of chart note and photos with Jose Garza PA-C. I have reviewed and agree with the assessment and plan. * Jose Garza PA-C - 03/12/2023 9:34 AM EST SUBJECTIVE: History of Present Illness: Emeka Torrez Jr. is a 73 year old male seen today for follow up of lesion/full skin exam. Previous office visit: 03/22/2022 Last attempted treatments include: cryo to AKs Lesion on R forehead, bothersome and does itch, does pick lesion until bleeds. Desires removal. 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 REVIEW OF SYSTEMS: SKIN: No [...] keratoses Reviewed, same day as visit, 0 [facility] Dermatology lab work(s)/pathology report(s) as well as [...] for full skin exam Contact patient via [employer] Communication Applicable photos (if any) and chart reviewed [...] Garza PA-C 03/12/2023 9:34 AM Ref: JOSE GARZA[[id number]] [address] [place] [address] [place] [address] (office) [phone] (fax) PCP: MAGGIE ADAM [address] [place] [address] [phone] documented in this encounter Nursing Notes * Ludmila Vazquez LPN - 03/12/2023 9:36 AM EST Patient identified by full name and date of . Chief Complaint Patient presents with Follow Up 1 year for full skin exam, no new concerns documented in this encounter Miscellaneous Notes * Result Encounter Note - Jose Garza PA-C - 03/13/2023 1:30 PM EST Sent patient portal message to pt with bx results. SKs, no further tx needed. Pt urged to contact me with any questions or concerns. Jose Garza [facility] A. Skin, R superior forehead, shave: Seborrheic keratosis B. Skin, R inferior forehead, shave: Seborrheic keratosis, inflamed documented in this encounter Plan of Treatment Upcoming Encounters Date Type Department Care Team (Late st Contact Info) Description 03/15/2023 5:00 PM EST Office Visit [facility] [address] [place] [address] Maggie Adam, [address] [place] [address] 05/24/2023 10:00 AM EST Office Visit Family [facility] [address] [place] [address] Maggie Adam, [address] [place] [address] 03/26/2024 10:20 AM EST Office Visit Dermatology [address] [place] [address] Jose Garza PA-C [address] [place] [address] [place] [address] Scheduled Procedures Name Priority Associated Diagnoses Date/Ti me COLONOSCOPY FLEXIBLE PROXIMAL DIAGNOSTIC Recall History of colon polyps Health Maintenance Due Date Last Done Comments DTaP,Tdap,and Td Vaccines (2 - Td or Tdap) 02/08/2021 02/08/2011, 05/13/2003 COVID-19 Vaccine (4 - 2022- season) 2023 03/07/2021, 07/05/2020, 05/31/2020 Influenza Vaccine [...] Procedure Name Priority Date/Time Associated Diagnosis Comments SURGICAL PATHOLOGY Routine 03/12/2023 10 :05 AM EST Seborrheic keratosis DERM IMAGE (SITE) Routine 03/12/2023 H/O dysplastic nevus Multiple nevi Skin exam, screening for cancer Seborrheic keratosis Actinic keratosis documented in this encounter Results * SURGICAL PATHOLOGY (03/12/2023 10:05 AM EST) Final Diagnosis A. Skin, R superior forehead, shave: Seborrheic keratosis B. Skin, R inferior forehead, shave: Seborrheic keratosis, inflamed 03/13/2023 11:53 AM EST [facility] Clinical History See Order Comments 03/13/2023 11:53 AM EST [facility] Order Comments 1A. R superior forehead-1.0x0.7cm brown smooth adherent plaque. 2B. R superior forehead-9x8mm brown adherent papule. ISKs 03/13/2023 11:53 AM EST [facility] Gross Description A. Skin. Received in formalin with a container labeled with "Emeka Torrez Jr.", "[id number]", "1950" and " right superior forehead". Received is a 1.0 x 0.9 cm skin shave. The skin surface stewart to light brown somewhat mottled slightly raised firm and shiny. The underlying tissue is inked. The specimen is trisected and submitted in cassette A1. Gross By: MR Alon Lopez. Received in formalin with a container labeled with "Emeka Torrez JrHeather", "[id number]", "1950" and " right inferior forehead". Received is a 0.9 x 0.9 cm skin shave. The skin surface is fermin to light brown slightly raised firm and shiny. The underlying tissue is inked. The specimen is trisected and submitted in cassette B1. Gross By: 03/13/2023 11:53 AM EST LABORATORY [facility] Sign Out Location Pathologist sign out performed at [facility] ([facility]), [address] [place] [address]. 03/13/2023 11:53 AM EST LABORATORY [facility] Photographic images and diagrams represent boyd findings in this case; they are not intended to replace a complete review of the final diagnostic report. The following statement applies to Flow Cytometry, Histology, In situ Hybridization Assays and Molecular Genetics. This test was developed and performed at [facility] and its performance characteristics determined by [facility]. It has not been cleared or approved by the U.S. Food and Drug Administration. The FDA has determined that such clearance or approval is not necessary. This test is used for clinical purposes. It should not be regarded as investigational or for research. Special stains, including histochemical stains, and studies using immunologic and MASSIMO methodology (where applicable) are performed with appropriate positive and negative control reactions. 03/13/2023 11:53 AM EST LABORATORY [facility] Tissue Skin structure / Unknown 03/12/2023 10:05 AM EST 03/12/2023 10:05 AM EST Comment:1A. R superior foreh ead-1.0x0.7cm brown smooth adherent plaque.2B. R superior forehead-9x8mm brown adherent papule.ISKs Specimen from wound (specimen) Skin structure / Unknown 03/12/2023 10:05 AM EST 03/12/2023 10:05 AM EST Comment:1A. R superior foreh ead-1.0x0.7cm brown smooth adherent plaque.2B. R superior forehead-9x8mm brown adherent papule.ISKs Jose Garza PA-C LAB PATHOLOGY ORDERABLES LABORATORY [facility] [address] [place] [address] * DERM IMAGE (SITE) (03/12/2023) 03/12/2023 Jose Garza PA-C DIGITAL PHOTOG RYLEE documented in this encounter Visit Diagnoses Diagnosis Actinic keratosis- Primary H/O dysplastic nevus Personal history of diseases of skin and subcutaneous tissue Multiple nevi Benign neoplasm of skin, site unspecified Skin exam, screening for cancer Screening for malignant neoplasm of the skin Seborrheic keratosis Other seborrheic keratosis documented in this encounter Care Teams Sliding Joint Maker Relationship Specialty Start Date End Date Maggie Adam DO [address] [place] [address] PCP - General Family Medicine 07/02/19 documented as of this encounter
--- OUTSIDE RECORDS SUMMARY | 2023-08-25 12:27 | External Medical Summary | Summary of Care ---
Author Name Unknown Organization [facility] Address [address] [facility] [place] [address] Phone [phone] Care Team Providers Care Adult Basic Education Teacher Name Role Phone Ranjan Adam DO Primary Care Provider Reason for Visit * Reason Comments Outpatient Testing Encounter Details Date Type Department Care Team (Late st Contact Info) Description 05/24/2023 11:10 AM EST Laboratory Laboratory, [facility] [address] [facility] [place] [address] [facility] [address] [place] [address] [employer] Other*[id number]; Encounter for long-term (current) use of medications; Dyslipidemia, goal LDL below 100; HTN, goal below 130/80; Prediabetes; Erectile dysfunction due to diseases classified elsewhere; Vitamin D deficiency; Male hypogonadism Allergies Active Allergy Reactions Criticality Noted Date [...] [facility] [address] [place] [address] Ranjan Adam, [address] [place] [address] 03/26/2024 10:20 AM EST Office Visit Dermatology [address] [place] [address] aMriza Garza PA-C [address] [place] [address] [place] [address] 08/25/2024 11:40 AM EDT Office Visit [facility] [address] [place] [address] Ranjan Adam, [address] [place] [address] Pending Results Name Type Priority Associated Diagnoses Date /Time MYCODE SUBSEQUENT ADULT Lab Routine MyCode Research Other*[id number] 05/24/2023 10:58 AM EST CBC WITH WBC DIFFERENTIAL Lab Routine Encounter for long-term (current) use of medications 05/24/2023 10:58 AM EST COMPREHENSIVE METABOLIC PANEL Lab Routine Dyslipidemia, goal LDL below 100 HTN, goal below 130/80 05/24/2023 10:58 AM EST HEMOGLOBIN A1C Lab Routine Prediabetes 05/24/2023 10:58 AM EST LIPID PANEL WITH DIRECT LDL [...] Routine Male hypogonadism 05/24/2023 10:58 AM EST MYCODE SST1 Lab Routine [employer] Other*[id number] 05/24/2023 10:58 AM EST MYCODE SST2 Lab Routine [employer] Other*[id number] 05/24/2023 10:58 AM EST CBC Lab Routine Encounter for long-term (current) use of medications 05/24/2023 10:58 AM EST DIFFERENTIAL, AUTOMATED Lab Routine Encounter for long-term (current) use of medications 05/24/2023 10:58 AM EST ALBUMIN / CREATININE RATIO, URINE Lab Routine HTN, goal below 130/80 05/24/2023 11:00 AM EST Scheduled Procedures Name Priority Associated Diagnoses Date/Ti me COLONOSCOPY FLEXIBLE PROXIMAL DIAGNOSTIC Recall History of colon polyps Health Maintenance Due Date Last Done Comments DTaP,Tdap,and Td Vaccines (2 - Td or Tdap) 02/08/2021 02/08/2011, 05/13/2003 COVID-19 Vaccine ( season) 2023 03/07/2021, 07/05/2020, 05/31/2020 Depression Screening 08/18/2023 08/17/2022 GFR 08/23/2023 08/22/2022, 10/05, 11/30/2020, Additional history exists HbA1c 08/23/2023 08/22/2022, 10/05, 09/08/2020, Additional history exists COLONOSCOPY-EVERY 5 YRS AGES 18-100 10/21/2024 10/22/2019, 10/22/2019, 07/07/2016, Additional history exists Albumin/Creatinine Ratio 08/22/2025 023, 09/08/2020, 06/02/2020, Additional history exists Lipid Panel 08/23/2027 08/22/2022, 03/0 11/2021, 09/08/2020, Additional history exists Pneumococcal Vaccine: [...] as of this encounter Visit Diagnoses Diagnosis MyCode Research Other*[id number] Encounter for long-term (current) use of medications Encounter for long-term (current) use of other medications Dyslipidemia, goal LDL below 100 Other and unspecified hyperlipidemia HTN, goal below 130/80 Unspecified essential hypertension Prediabetes Other abnormal glucose Erectile dysfunction due to diseases classified elsewhere Vitamin D deficiency Unspecified vitamin D deficiency Male hypogonadism Other testicular hypofunction documented in this encounter Care Teams Adult Basic Education Teacher Relationship Specialty Start Date End Date Ranjan Adam DO [address] [place] [address] PCP - General Family Medicine 07/02/19 documented as of this encounter
--- OUTSIDE RECORDS SUMMARY | 2023-08-25 12:27 | External Medical Summary ---
Author Name Unknown Address Unknown Organization K01:LAB[facility]ATORY [facility] [place] [address] [place] [address] Laboratory Report Ordering Provider Test Date Status JORGE LUIS SERRANO 05/24/2023 10:58:35 Final Observation Date Value Abnormality Reference (Units ) Status Albumin 05/24/2023 10:58:35 4.8 3.8-5.0 (g/dL) Final Sex Hormone Binding Globulin 05/24/2023 10:58:35 41 12-91 (nmol/L) Final Testosterone [Mass/volume] in Serum or Plasma 05/24/2023 10:58:35 505.2 193.0-740.0 (ng/dL) Final Free Testosterone, calculated 05/24/2023 10:58:35 87.9 35.0-130.0 (pg/mL) Final Bioavailable Testosterone, calculated 05/24/2023 10:58:35 228.9 79.0-335.0 (ng/dL) Final Performing Location LABORATORY [facility] - [address] [place] [address]
--- OUTSIDE RECORDS SUMMARY | 2023-08-25 12:27 | External Medical Summary ---
Author Name Unknown Address Unknown Organization K01:LABORATORY [facility] - [address] [place] [address] Laboratory Report Ordering Provider Test Date Status JORGE LUIS SERRANO 05/24/2023 10:58:35 Final Observation Date Value Abnormality Reference (Units ) Status PSA 05/24/2023 10:58:35 0.27 <4.10 (ng/ mL) Final Performing Location LABORATORY [facility] - [address] [place] [address]
--- NOTE | 2023-08-25 13:06 | Hospitalist Progress Note ---
Date of Service August 25, 2023 Assessment & Plan (1) Intractable low back pain: (2) Hypertension: (3) Obesity (BMI 35.0-39.9 without comorbidity): Plan 73 year old male who presented to the ED with intractable low back pain for 3 weeks acutely worsened few days ago. Intractable low back pain- reviewed CT and MRI. reviewed ortho notes. Likely MSK pain. Will try lidoderm patch, tylenol, iv decadron, flexeril with oxy prn. Voltaren gel, heat pad as needed. Will consult pain management if does not improve, anyway they are not here over the weekend. PT OT eval. HTN- continue losartan. Obesity- BMI 39. Weight loss recommended DVT ppx- sc lovenox Dispo- Pending symptomatic improvement and PT OT eval Time spent- approx 35 mins Admission and Anticipated Discharge Date Admission Date: August 24, 2023 Subjective Patient was seen and examined at bedside. Pain is better with iv dilaudid. Reviewed MRI findings. No neurological symptoms in LE. No bowel bladder issues. No sciatic pain. Only lower back pain more on right side exacerbated with positional changes suggesting MSK etiology. Review of Systems Review of Systems: All systems reviewed & are unremarkable except as noted in Subjective Physical Exam Physical Exam: General: Lying comfortably in bed, not in distress, on room air HEENT: EOMI, DEEPA, MMM Chest: Clear breath sounds bilaterally, no wheezes or crackles CVS: Regular rate and rhythm, normal heart sounds, no murmur Abdomen: Soft, non tender, not distended, normal bowel sounds Neuro: Awake, alert, oriented, conversing well, non focal Extremities: No cyanosis, clubbing or edema MSK: Tenderness on palpation of right lower back Results & Data Results & Data Vital Signs (Past 12 Hours) Vital Signs Temp Pulse Resp BP Pulse Ox O2 Del Method 08/25/23 07:26 37.0 C 68 18 146/88 H 94 Room Air Laboratory Results Short CBC 08/24/23 Range/Units 16:20 WBC 8.32 (4.8-10.8) K/ul Hgb 17.6 (14.0-18.0) g/dl Hct 52.3 H (42.0-52.0) % Plt Count 219 (130-400) K/uL BMP 08/24/23 16:20 Sodium 137 Potassium 4.3 Chloride 105 Carbon Dioxide 25 BUN 26 H Creatinine 0.86 Glucose 137 H Calcium 10.0 Liver Function 08/24/23 Range/Units 16:20 Total Bilirubin 0.6 (0.2-1.0) mg/dl AST 17 (13-39) U/L ALT 16 (7-52) U/L Alkaline Phosphatase 33 L (34-104) U/L Albumin 4.8 (3.4-5.0) gm/dl Urine 08/24/23 Range/Units 20:54 Urine Color Yellow Urine Appearance Clear (Clear) Urine pH 5.5 (4.5-7.5) Ur Specific [place] > 1.045 H (1.000-1.030) Urine Protein 1+ H (Negative) Urine Glucose (UA) Negative (Negative)
[2023-08-25] MEDS: ACETAMINOPHEN 500 MG TAB PO SCH (13:36)
[2023-08-25] MEDS: ENOXAPARIN INJ 40 MG/0.4 ML SYR SQ SCH (13:41)
[2023-08-25] MEDS: DICLOFENAC SOD 1% GEL 100 GM TUBE EXT SCH (13:42)
[2023-08-25] MEDS ORDERED: POLYETHYLENE (MIRALAX) 17 GM PACK PO PRN (18:44)
[2023-08-25] MEDS: DOCUSATE SODIUM/SENNA 50/8.6MG TAB PO SCH (19:04)
[2023-08-25] MEDS: POLYETHYLENE (MIRALAX) 17 GM PACK PO SCH (19:05)
[2023-08-25] MEDS: PSYLLIUM or GUAR GUM FIBER 4GM PACKET PO SCH (21:24)
--- NOTE | 2023-08-26 10:48 | Discharge Summary ---
Date of Service August 26, 2023 Admission HPI Per Admitting Provider History obtained from patient, family, and records. Medical history significant for hypertension, hyperlipidemia, chronic back pain/sciatica as per records, prediabetes. Last confinement December 2018 under Orthopedics service for elective left total hip arthroplasty. Uneventful postop course. Last month, patient noted gradual worsening of chronic low back pain. No recollection of trauma or unusual exertion. Discomfort worsened by ambulation. No fever, no chills, no weight loss, no hematuria. Occasional leg radiation. No weakness or incontinence symptoms. No headache symptoms. Outpatient [facility] [place] Orthopedics spine evaluation contemplated next week as per patient. Patient brought by family to ER for worsening symptoms. Intractable discomfort at the ER. Initial SBP at the ER 170s. 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 Admission Exam Per Admitting Provider GENERAL: Slightly uncomfortable, obese, pleasant, sitting on a wheelchair, no respiratory distress SKIN: Normal color, warm HEENT: Alopecia, pink palpebral conjunctivae, no ptosis, dry buccal mucosa NECK : Supple, short neck, no tenderness CHEST : CTA, no tenderness HEART : RRR, no obvious murmurs ABDOMEN: Some distention, nontender BACK : Low back tenderness, negative straight leg raise test EXTREMITIES : No LE swelling/tenderness, no other conspicuous deformities noted NEUROLOGIC : Coherent, no facial asymmetry, no other gross focality Principal Diagnosis Intractable low back pain suspected musculoskeletal Discharge Exam General: Lying comfortably in bed, not in distress, on room air HEENT: EOMI, DEEPA, MMM Chest: Clear breath sounds bilaterally, no wheezes or crackles CVS: Regular rate and rhythm, normal heart sounds, no murmur Abdomen: Soft, non tender, not distended, normal bowel sounds Neuro: Awake, alert, oriented, conversing well, non focal Extremities: No cyanosis, clubbing or edema MSK: Tenderness on palpation of right lower back Discharge Data Allergies Allergy/AdvReac Type Severity Reaction Status Date / Time clavulanic acid Allergy Intermediate itching Verified 08/24/23 18:46 Consultations 08/24/23 19:40 ED Decision to Admit Stat 08/24/23 20:19 Consult Orthopedic Spine Surgery Routine Ordered Studies 08/24/23 15:53 CT abd pelvis IV con only Stat CT lumbar spine w con Stat 08/24/23 20:21 MRI Lumbar Spine [MR lumbar spine wo con] Routine Laboratory Results WBC 8.32 K/ul (4.8-10.8) 08/24/23 16:20 RBC 5.90 M/uL (4.70-6.10) 08/24/23 16:20 Hgb 17.6 g/dl (14.0-18.0) 08/24/23 16:20 Hct 52.3 % (42.0-52.0) H 08/24/23 16:20 MCV 88.6 fL (80.0-100.0) 08/24/23 16:20 MCH 29.8 pg (25.0-34.0) 08/24/23 16:20 MCHC 33.7 g/dL (32.0-36.0) 08/24/23 16:20 RDW Std Deviation 41.8 fL (36.4-46.3) 08/24/23 16:20 RDW Coeff of Akira 12.8 % (11.5-14.5) 08/24/23 16:20 Plt Count 219 K/uL (130-400) 08/24/23 16:20 MPV 9.2 fL (9.4-12.4) L 08/24/23 16:20 Immature Gran % (Auto) 0.6 % 08/24/23 16:20 Neut % (Auto) 77.5 % 08/24/23 16:20 Lymph % (Auto) 19.0 % 08/24/23 16:20 [place] % (Auto) 2.5 % 08/24/23 16:20 Eos % (Auto) 0.0 % 08/24/23 16:20 Baso % (Auto) 0.4 % 08/24/23 16:20 Neut # (Auto) 6.45 K/uL (1.40-6.50) 08/24/23 16:20 Lymph # (Auto) 1.58 K/uL (1.20-3.40) 08/24/23 16:20 [place] # (Auto) 0.21 K/uL (0.11-0.59) 08/24/23 16:20 Eos # (Auto) 0.00 K/uL (0.00-0.50) 08/24/23 16:20 Baso # (Auto) 0.03 K/uL (0.00-0.20) 08/24/23 16:20 Immature Gran # (Auto) 0.05 K/uL (0.01-0.20) 08/24/23 16:20 Sodium 137 mmol/L (136-145) 08/24/23 16:20 Potassium 4.3 mmol/L (3.5-5.1) 08/24/23 16:20 Chloride 105 mmol/L (98-107) 08/24/23 16:20 Carbon Dioxide 25 mmol/L (21-32) 08/24/23 16:20 Anion Gap 7 (3-11) 08/24/23 16:20 BUN 26 mg/dl (6-23) H 08/24/23 16:20 Creatinine 0.86 mg/dl (0.6-1.4) 08/24/23 16:20 Est Cr Clr Drug Dosing 109.8 ml/min 08/24/23 16:20 Est GFR ( Amer) 101.1 ml/min 08/24/23 16:20 Est GFR (Non-Af Amer) 87.2 ml/min 08/24/23 16:20 BUN/Creatinine Ratio 30.2 (10-20) H 08/24/23 16:20 Glucose 137 mg/dl (70-99(Fasting)) H 08/24/23 16:20 Calcium 10.0 mg/dl (8.6-10.3) 08/24/23 16:20 Total Bilirubin 0.6 mg/dl (0.2-1.0) 08/24/23 16:20 AST 17 U/L (13-39) 08/24/23 16:20 ALT 16 U/L (7-52) 08/24/23 16:20 Alkaline Phosphatase 33 U/L (34-104) L 08/24/23 16:20 Total Protein 8.0 gm/dl (6.0-8.3) 08/24/23 16:20 Albumin 4.8 gm/dl (3.4-5.0) 08/24/23 16:20 Globulin 3.2 gm/dl (2.5-4.0) 08/24/23 16:20 Albumin/Globulin Ratio 1.5 (0.9-2) 08/24/23 16:20 Urine Color Yellow 08/24/23 20:54 Urine Appearance Clear (Clear) 08/24/23 20:54 Urine pH 5.5 (4.5-7.5) 08/24/23 20:54 Ur Specific [place] > 1.045 (1.000-1.030) H 08/24/23 20:54 Urine Protein 1+ (Negative) H 08/24/23 20:54 Urine Glucose (UA) Negative (Negative) 08/24/23 20:54 Urine Ketones Negative (Negative) 08/24/23 20:54 Urine Blood Negative (Negative) 08/24/23 20:54 Urine Nitrite Negative (Negative) 08/24/23 20:54 Urine Bilirubin Negative (Negative) 08/24/23 20:54 Urine Urobilinogen Negative (Negative) 08/24/23 20:54 Ur Leukocyte Esterase Negative (Negative) 08/24/23 20:54 Urine WBC (Auto) 0-5 /hpf (0-5) 08/24/23 20:54 Urine RBC (Auto) 0-2 /hpf (0-2) 08/24/23 20:54 U Hyaline Cast (Auto) 0-2 /lpf (0-2) 08/24/23 20:54 U Epithel Cells (Auto) 0-2 /hpf (0-2) 08/24/23 20:54 Urine Bacteria (Auto) None Seen (None Seen) 08/24/23 20:54 Calcium Oxalate Crystal Present (None Prsent) A 08/24/23 20:54 Impressions Abdomen/Pelvis CT 08/24/23 15:[address] WITH IV CONTRAST; CT LUMBAR SPINE WITH IV CONTRAST CT DOSE: 1479.25 mGy.cm HISTORY: Acute right lower abdominal and back pain without reported trauma R lower back pain TECHNIQUE: Multiaxial CT images of the abdomen and pelvis were performed following the IV administration of 91 cc of Optiray, A dose lowering technique was utilized adhering to the principles of ALARA. COMPARISON STUDY: MRI lumbar spine 12/14/2020 FINDINGS: CT ABDOMEN/PELVIS: Coronary arterial calcifications. Clear lung bases. No free air. Unremarkable spleen, mildly atrophic pancreas and adrenal glands. Unremarkable gallbladder. Hepatic steatosis. Patency of the hepatic and portal veins. Mild nonspecific bilateral perinephric stranding. Left renal cysts measure up to 3.8 cm. There is no hydronephrosis. Unremarkable urinary bladder. Mildly enlarged prostate. Small fat filled inguinal hernias. Atherosclerosis of the aorta. No lymphadenopathy. No bowel obstruction or bowel wall thickening. Mild colonic fecal retention. Normal appendix. Unremarkable soft tissues. Left hip arthroplasty. No acute fracture. CT LUMBAR SPINE: Moderate multilevel osteophytosis and facet arthrosis. No acute fracture, subluxation, endplate erosion or marrow replacing process. Mild levoscoliosis. Suboptimal evaluation of the central canal and neural foramina by CT technique. Moderate degeneration of the SI joints. Posterior annular disc bulge at L4-L5, eccentric to the left lateral recess and neural foramen are again noted causing moderate left foraminal narrowing. IMPRESSION: 1. No acute intra-abdominal or intrapelvic abnormality. 2. No acute fracture identified. 3. Incidental findings as above. ACT 112: Negative or not required by law. The above report was generated using voice recognition software. It may contain grammatical, syntax or spelling errors. Electronically signed by: Babak Alston M.D. 08/24/2023 6:[address] 08/24/23 15:[address] WITH IV CONTRAST; CT LUMBAR SPINE WITH IV CONTRAST CT DOSE: 1479.25 mGy.cm HISTORY: Acute right lower abdominal and back pain without reported trauma R lower back pain TECHNIQUE: Multiaxial CT images of the abdomen and pelvis were performed following the IV administration of 91 cc of Optiray, A dose lowering technique was utilized adhering to the principles of ALARA. COMPARISON STUDY: MRI lumbar spine 12/14/2020 FINDINGS: CT ABDOMEN/PELVIS: Coronary arterial calcifications. Clear lung bases. No free air. Unremarkable spleen, mildly atrophic pancreas and adrenal glands. Unremarkable gallbladder. Hepatic steatosis. Patency of the hepatic and portal veins. Mild nonspecific bilateral perinephric stranding. Left renal cysts measure up to 3.8 cm. There is no hydronephrosis. Unremarkable urinary bladder. Mildly enlarged prostate. Small fat filled inguinal hernias. Atherosclerosis of the aorta. No lymphadenopathy. No bowel obstruction or bowel wall thickening. Mild colonic fecal retention. Normal appendix. Unremarkable soft tissues. Left hip arthroplasty. No acute fracture. CT LUMBAR SPINE: Moderate multilevel osteophytosis and facet arthrosis. No acute fracture, subluxation, endplate erosion or marrow replacing process. Mild levoscoliosis. Suboptimal evaluation of the central canal and neural foramina by CT technique. Moderate degeneration of the SI joints. Posterior annular disc bulge at L4-L5, eccentric to the left lateral recess and neural foramen are again noted causing moderate left foraminal narrowing. IMPRESSION: 1. No acute intra-abdominal or intrapelvic abnormality. 2. No acute fracture identified. 3. Incidental findings as above. ACT 112: Negative or not required by law. The above report was generated using voice recognition software. It may contain grammatical, syntax or spelling errors. Electronically signed by: Babak Alston M.D. 08/24/2023 6:30 PM Lumbar Spine MRI 08/24/23 20:21 Exam(s): MRI L SPINE Without Contrast EXAM: MR Lumbar Spine Without Intravenous Contrast CLINICAL HISTORY: Reason for exam: lbp 1 month. TECHNIQUE: Magnetic resonance images of the lumbar spine without intravenous contrast in multiple planes. COMPARISON: CT lumbar spine from August 24, 2023 MRI lumbar spine from December 14, 2020 FINDINGS: Vertebrae: Unremarkable. No acute fracture or subluxation is seen involving the lumbar spine. Spinal cord: Unremarkable. Normal signal. Soft tissues: Unremarkable. DISCS/SPINAL CANAL/NEURAL FORAMINA: L1-L2: Mild degenerative disc disease. No stenosis. L2-L3: Mild degenerative disc disease and facet arthrosis. 3-4 mm broad-based posterior disc bulge. The spinal stenosis. There is mild right neural foraminal narrowing. L3-L4: Mild degenerative disc disease and facet arthrosis. 3-4 mm broad-based posterior disc bulge. No spinal stenosis. There is moderate right and mild left neural foraminal narrowing. L4-L5: Mild degenerative disc disease. There is 4-5 mm broad-based posterior and left-sided disc bulge as well as mild facet arthrosis. No spinal stenosis is seen. There is severe left and moderate right neural foraminal narrowing. L5-S1: Mild degenerative disc disease. 2 days 3 mm broad-based posterior disc bulge. No spinal stenosis. There is mild bilateral neural foraminal narrowing. IMPRESSION: 1. No acute fracture or subluxation is seen involving the lumbar spine. 2. Mild to moderate multilevel degenerative disc disease and facet arthrosis throughout the lumbar spine. No significant spinal stenosis is seen. There are varying degrees of neural foraminal narrowing as described above. Little changed since previous. Electronically signed by: Gianfranco Martinez MD 08/24/23 21:56 PM Hospital Course (1) Intractable low back pain: (2) Hypertension: (3) Obesity (BMI 35.0-39.9 without comorbidity): Plan 73 year old male who presented to the ED with intractable low back pain for 3 weeks acutely worsened few days ago. Work up including CT and MRI did not show any etiology to suggest the culprit etiology. Seen by ortho and recommendations noted. Suspected musculoskeletal and started on combination of steroids, muscle relaxant, lidoderm patch, tylenol and oxy prn and he had significant improvement overnight. He has been able to walk around and pain is comfortable. He is anxious to go home. States he will see pain management in the coming week. Also given script for outpatient physical therapy. PDMP reviewed. No red flag signs. Prescribing 15 pills of oxycodone for pain control along with prednisone, flexeril and lidoderm patch. Intractable low back pain- reviewed CT and MRI. Reviewed ortho notes. Details as above. HTN- continue losartan. Obesity- BMI 39. Weight loss recommended Total Time Total Time Spent Total Time Spent (In Minutes): 35 Discharge Plan Discharge Items Patient Disposition: Home - Self-Care Reason For Visit: BACK PAIN Discharge Diagnosis: Intractable back pain Condition on Discharge: Good Activity: Resume your previous activity Non-emergency contact: Primary Care Provider and Pain Management Call non-emergency contact if: you have any medication questions, your symptoms worsen and your pain is concerning for you Follow-up/Referrals: Ranjan Adam, [Primary Care Provider] - Diet: Heart Healthy and Low Sodium (2gm) Addtl Attending Provider Instructions: Please take the medications as prescribed Your can take 1/2-1 tab of oxycodone as needed for mod-sev pain You can take over the counter stool softeners as needed You can take tylenol 1000 mg three times a day so that you need less of the oxycodone You can take over the counter 4% lidocaine patch You can take protonix or prilosec while on prednisone or NSAIDs to protect your stomach Follow up with pain management, orthopedics, physical therapy and family doctor Pending Studies at Discharge: No Stand-Alone Forms: My [employer], Smoking Cessation Medications and DC Order Prescriptions: New cyclobenzaprine 10 mg Tablet 10 mg PO TID 7 Days Qty: 21 0RF diclofenac sodium [Voltaren Arthritis Pain] 1 % Gel 2 g EXT TID 7 Days Qty: 100 0RF prednisone 50 mg tablet 50 mg PO DAILY 5 Days Qty: 5 0RF oxycodone 10 mg tablet 10 mg PO TID 5 Days Qty: 15 0RF Rx Instructions: 1/2- 1 tab as needed for mod- sev pain pantoprazole [Protonix] 40 mg tablet,delayed release (DR/EC) 40 mg PO QAM 10 Days Qty: 10 0RF Continued multivitamin Tablet 1 tab PO QAM losartan 100 mg Tablet 100 mg PO QAM cholecalciferol (vitamin D3) [Vitamin D3] 1,000 unit Capsule 1,000 unit PO QAM ezetimibe 10 mg tablet 10 mg PO QAM aspirin [Ecotrin Low Strength] 81 mg tablet,delayed release (DR/EC) 81 mg PO QAM Discontinued diclofenac sodium 75 mg tablet,delayed release (DR/EC) 75 mg PO BID PRN (Reason: pain) Qty: 30 0RF tizanidine 4 mg tablet 4 mg PO BID PRN (Reason: muscle spasticity) Qty: 30 1RF meloxicam 7.5 mg tablet 7.5 mg PO DAILY MDD 2 pills Rx Instructions: With meals if possible. Discharge Orders: Discharge Order (Routine); Ordered 08/26/23 Ordered By: Junaid Norton Admission Data Admit Date/Time: 08/24/23 20:18 Attending Provider: Junaid Norton Admit Provider: Mario Avilez Primary Care Provider: Ranjan Adam Other Providers: Fahad Sahu; Mario Avilez
== END 2023-08-26 12:42 | disposition home or self-care (01) ==
LOC: 3W 13:16 → ED 13:16 → 3W 22:27